=== PATIENT | male | born 1940 | race Caucasian/White ===

== ENCOUNTER 2017-07-18 11:36 | Emergency (ER) | payer OTHER ==
[2017-07-18 11:40] VITALS: BMI 29.4
[2017-07-18] MEDS ORDERED: ACETAMINOPHEN 1000 MG/100 ML VIAL (NON FORMULARY) IVPB ONE (12:18)
--- NOTE | 2017-07-18 12:22 | PDOC ---
History of Present Illness <Giovanna Glover - Last Filed: 07/18/17 17:27> - General History Source: Patient Exam Limitations: No Limitations - History of Present Illness Initial Comments: 07/18/17 12:22 Patient is a 77 yo male with PMHx of DM and TIA who presents with left lower quadrant abdominal pain radiating into the left lower back which onset after breakfast this morning. Patient describes dull, achy pain. He states he had a bowel movement prior to arrival without any improvement in his pain. He admits to nausea and one episode of non-bloody, non-bilious emesis. He also admits to subjective fevers and chills. Patient states his last colonoscopy was 2 years ago, which showed diverticulosis. He also reports a stable benign left adrenal adenoma, which he has regular imaging for. He denies any trauma, numbness, tingling, focal weakness, urinary incontinence, dysuria, urinary frequency, bloody or tarry stools. <Adams Samayoa - Last Filed: 07/18/17 18:03> - General Chief Complaint: Pain, Acute Stated Complaint: BACK PAIN (PCP SENT) Time Seen by Provider: 07/18/17 11:55 Past History <Giovanna Glover - Last Filed: 07/18/17 17:27> - Past Medical History Anemia: No Asthma: No Cancer: No Cardiac Disorders: No CVA: Yes (TIA 1998) COPD: No CHF: No Dementia: No Diabetes: Yes GI Disorders: No Disorders: No HTN: Yes Hypercholesterolemia: No Liver Disease: No Seizures: No Thyroid Disease: No - Surgical History Orthopedic Surgery: Yes (RIGHT ARM FX) - Suicide/Smoking/Psychosocial Hx Smoking Status: No Smoking History: Never smoked Number of Cigarettes Smoked Daily: 0 Hx Alcohol Use: No Drug/Substance Use Hx: No Substance Use Type: None <Adams Samayoa - Last Filed: 07/18/17 18:03> - Past Medical History Allergies/Adverse Reactions: Allergies Allergy/AdvReac Type Severity Reaction Status Date / Time No Known Allergies Allergy Verified 07/18/17 11:40 Home Medications: Ambulatory Orders Aspirin 81 mg PO DAILY 02/22/12 Aspirin/Dipyridamole [Aggrenox -] 1 combo PO BID 05/16/12 Ondansetron [Zofran *Odt*] 8 mg SL TID #30 od.tablet 07/18/17 Review of Systems - Review of Systems Able to Perform ROS?: Yes Is the patient limited Israeli proficient: No Constitutional: Yes: Chills, Fever (subjective) HEENTM: No: Blurred Vision, Double Vision, Throat Pain Respiratory: No: Cough, Shortness of Breath Cardiac (ROS): No: Chest Pain, Lightheadedness ABD/GI: Yes: Nausea, Vomiting, Abdominal cramping. No: Diarrhea, Rectal Bleeding (left lower quadrant) : Yes: Flank Pain (left side). No: Dysuria, Frequency Musculoskeletal: No: Neck Pain Integumentary: No: Pallor, Rash Neurological: No: Headache, Numbness, Tingling, Weakness Psychiatric: No: Anxiety, Depression Endocrine: No: Symptoms Reported Hematologic/Lymphatic: No: Symptoms Reported All Other Systems: Reviewed and Negative <Adams Samayoa - Last Filed: 07/18/17 18:03> *Physical Exam - Vital Signs Last Vital Signs Temp Pulse Resp BP Pulse Ox 98.5 F 70 19 137/92 97 07/18/17 11:39 07/18/17 11:39 07/18/17 11:39 07/18/17 11:39 07/18/17 11:39 <Giovanna Glover - Last Filed: 07/18/17 17:27> - Vital Signs Last Vital Signs Temp Pulse Resp BP Pulse Ox 98.5 F 70 19 137/92 97 07/18/17 11:39 07/18/17 11:39 07/18/17 11:39 07/18/17 11:39 07/18/17 11:39 - Physical Exam Comments: 07/18/17 12:29 Pt sitting in bed, appears uncomfortable General Appearance: Yes: Mild Distress HEENT: positive: EOMI, MARIALUISA, Normal ENT Inspection. negative: Pale Conjunctivae , Scleral Icterus (R), Scleral Icterus (L), Pharyngeal Erythema, Tonsillar Exudate, Tonsillar Erythema Neck: positive: Supple. negative: Tender Respiratory/Chest: positive: Lungs Clear, Normal Breath Sounds. negative: Respiratory Distress, Rales, Rhonchi, Wheezing Cardiovascular: positive: Regular Rhythm, Regular Rate. negative: Murmur Vascular Pulses: Dorsalis-Pedis (R): 2+, Doralis-Pedis (L): 2+ Gastrointestinal/Abdominal: positive: Normal Bowel Sounds, Tender (left lower quadrant), Soft Musculoskeletal: negative: CVA Tenderness (R), CVA Tenderness (L) Extremity: positive: Normal Capillary Refill. negative: Pedal Edema Integumentary: positive: Warm. negative: Jaundice, Pale Neurologic: positive: Fully Oriented, Alert, Motor Strength 5/5 <Adams Samayoa - Last Filed: 07/18/17 18:03> ED Treatment Course - LABORATORY CBC & Chemistry Diagram: 07/18/17 12:30 07/18/17 12:30 - ADDITIONAL ORDERS Additional order review: Laboratory Results 07/18/17 07/18/17 07/18/17 15:10 12:30 12:30 PT with INR 11.50 INR 1.04 Sodium 138 Potassium 4.4 Chloride 101 Carbon Dioxide 29 Anion Gap 8 BUN 18 Creatinine 1.0 Creat Clearance w eGFR > 60 Random Glucose 164 H Calcium 9.1 Total Bilirubin 0.5 AST 24 ALT 40 Alkaline Phosphatase 63 Total Protein 6.5 Albumin 3.7 Urine Color Yellow Urine Appearance Slcloudy Urine pH 6.0 Urine Protein Negative Urine Glucose (UA) 1+ H Urine Ketones 1+ H Urine Blood 2+ H Urine Nitrite Negative Urine Bilirubin Negative Urine Urobilinogen Negative Urine RBC 46 Urine WBC <1 Ur Epithelial Cells Rare Urine Bacteria Rare Urine Mucus Rare 07/18/17 12:30 RBC 3.97 L MCV 88.4 MCHC 33.2 RDW 14.8 MPV 7.8 Neutrophils % 81.7 Lymphocytes % 11.5 Monocytes % 5.2 Eosinophils % 1.3 Basophils % 0.3 - RADIOLOGY Radiograph Interpretation: EXAM#: TYPE/EXAM: RESULT: [id number] CT/ABDOMEN PELVIS CT WITH CONTR Exam: CT abdomen and pelvis with IV contrast Indication: Left lower quadrant pain. Technique: Contiguous axial CT images of the abdomen and pelvis were obtained with oral contrast, following the intravenous administration of 96 mL of Omnipaque 350 contrast. Coronal and sagittal reconstructions obtained. Comparison: 04/09/[address] abdomen/pelvis dated 08/29/2015. Findings: There is a 3-4 mm calculus in the distal left ureter, just proximal to the ureterovesical junction with moderately severe distention of the left ureter, moderate distention of the renal pelvis and moderate hydronephrosis. There is a delayed left nephrogram. There is extensive left perinephric fat stranding and perirenal free fluid, some of which is most likely attributed to forniceal rupture, with fluid tracking inferiorly along the psoas muscle and left ureter. There is also a punctate 1-2 mm nonobstructing calculus in an upper pole calyx of the left kidney. Normal size right kidney without hydronephrosis. There is minimal dependent change in both lung bases. There is calcification of the aortic valve cusps. Please correlate for aortic stenosis. There are coronary artery calcifications. The liver is normal in size and contour. There are multiple subcentimeter hypodense lesions scattered within the right and left hepatic lobes, too small to characterize. The gallbladder is not pathologically distended. No intrahepatic or extrahepatic biliary ductal dilatation. Fatty involution of the pancreatic head. Normal size spleen. Subcentimeter hypodense lesion in the inferior spleen is too small to characterize. There is a 2.2 x 1.6 cm left adrenal gland nodule, unchanged in size. No right adrenal gland nodule or mass. Normal caliber thoracic aorta with moderate calcific atherosclerosis, including the ostia of the SMA. There is severe calcific atherosclerosis at the ostia of the renal arteries. There is a small hiatal hernia. No evidence of intestinal obstruction. Sigmoid and descending colon diverticulosis with no evidence of acute diverticulitis. Normal-appearing, air-filled appendix is noted. No free intraperitoneal air. No drainable collection within the abdomen or pelvis. No intraperitoneal free fluid. Small fat-containing umbilical hernia. Moderate-sized fat-containing right inguinal hernia. Normal size prostate gland. Proximal there is prominent submucosal fat deposition in the urinary bladder, which is most likely the sequela of chronic recurrent inflammation/ cystitis. This appears similar to 08/29/2015 CT abdomen/pelvis. Degenerative changes in the hips, sacroiliac joints and spine. Chronic deformity of the right iliac bone, unchanged from at least 08/29/2015, may be postsurgical or the chronic sequela of old trauma. Impression: 1. A 4 mm calculus within the distal left ureter, immediately proximal to the ureterovesical junction with moderately severe distention of the left ureter, moderate left hydronephrosis and delayed left nephrogram. Extensive left perirenal and periureteral fat stranding with free fluid, most likely secondary to forniceal rupture. 2. No evidence of acute diverticulitis or intestinal obstruction. Normal appendix. 3. A punctate 1-2 mm nonobstructing calculus in the left kidney. 4. Stable size of a 2.2 cm indeterminant left adrenal gland nodule, most likely an adenoma. 5. Severe calcific atherosclerosis at bilateral renal artery ostia. 6. Calcification of the aortic valve. Correlate for aortic stenosis. Coronary artery calcific atherosclerosis. Reported By: Stefan Herrera MD 07/18/17 1724 - Medications Given in the ED: ED Medications Discontinued Medications Generic Name Dose Route Start Last Admin Trade Name Freq PRN Reason Stop Dose Admin Acetaminophen 1,000 mg 07/18/17 12:18 07/18/17 12:49 Ofirmev Injection - IVPB 07/18/17 12:19 1,000 mg ONCE ONE Administration Morphine Sulfate 4 mg 07/18/17 13:34 07/18/17 13:47 Morphine Injection - IVPUSH 07/18/17 13:35 4 mg ONCE ONE Administration Ondansetron HCl 4 mg 07/18/17 13:36 07/18/17 13:47 Zofran Injection IVPUSH 07/18/17 13:37 4 mg ONCE ONE Administration <Giovanna Glover - Last Filed: 07/18/17 17:27> - LABORATORY CBC & Chemistry Diagram: 07/18/17 12:30 07/18/17 12:30 <Adams Samayoa - Last Filed: 07/18/17 18:03> Medical Decision Making - Medical Decision Making 07/18/17 12:32 Pt is a 77 yo male with PMHx of DM and TIA who presents for LLQ abdominal pain and left flank pain that onset this morning Patient has no urinary symptoms or bowel changes Patient had colonoscopy 2 years ago which showed diverticulosis Labs ordered CT Abd/Pelvis with oral contrast ordered as there is concern for diverticulitis IV Tylenol ordered 07/18/17 12:35 <Adams Samayoa - Last Filed: 07/18/17 18:03> *DC/Admit/Observation/Transfer - Attestations Scribe Attestion: 07/18/17 17:28 Documentation prepared by Giovanna Glover, acting as medical csr for Adams Samayoa DO <Giovanna Glover - Last Filed: 07/18/17 17:27> - Discharge Dispostion Admit: No <Adams Samayoa - Last Filed: 07/18/17 18:03> Diagnosis at time of Disposition: Kidney stone - Discharge Dispostion Disposition: HOME Condition at time of disposition: Unchanged/Unknown - Prescriptions Prescriptions: Ondansetron [Zofran *Odt*] 8 mg SL TID #30 od.tablet - Referrals Referrals: Jackelin Funk MD [Primary Care Provider] - Galen Dean MD [Staff Physician] - - Patient Instructions Printed Discharge Instructions: DI for Kidney Stones Additional Instructions: You have a kidney stone, not diverticulitis- Use the oxycontin you already have at home, but take the Zofran ODT first. Call Dr. Roe tomorrow morning for follow up. The stone may pass on it's own.
[2017-07-18] MEDS ORDERED: ACETAMINOPHEN INJECTION 100 ML IVPB ONE ×2 (12:27→16:50)
[2017-07-18 12:48] LABS: BASOPHIL 0.3 % (0-2.0); EOSINOPHIL 1.3 % (0-4.5); MCH 29.3 pg (25.7-33.7); MCHC 33.2 g/dl (32.0-35.9); MEAN CELL VOLUME 88.4 fl (80-96); MEAN PLT VOLUME 7.8 fl (7.5-11.1); NEUTROPHILS 81.7 % (42.8-82.8); PLATELET COUNT 170 K/MM3 (134-434); RDW 14.8 % (11.9-15.9); WHITE BLOOD COUNT 8.5 K/mm3 (4.0-10.0)
[2017-07-18 13:04] LABS: INR 1.04 (0.82-1.09); PROTHROMBIN TIME (PATIENT) 11.5 SEC (9.98-11.88)
[2017-07-18 13:14] LABS: ALBUMIN 3.7 g/dl (3.4-5.0); ALK PHOS 63 U/L (45-117); ANION GAP 8 (8-16); BILIRUBIN,TOTAL 0.5 mg/dL (0.2-1.0); CALCIUM 9.1 mg/dL (8.5-10.1); CO2 29 mmol/L (21-32); GLUCOSE,RANDOM 164 mg/dL (74-106); SGOT/AST 24 U/L (15-37); SGPT/ALT 40 U/L (12-78); TOT PROT 6.5 g/dl (6.4-8.2)
[2017-07-18] MEDS ORDERED: morphine CARPU-JECT 4 MG/1 ML DISP.SYRIN IVPUSH ONE (13:34)
[2017-07-18] MEDS ORDERED: ONDANSETRON 4 MG/2 ML VIAL IVPUSH ONE (13:36)
[2017-07-18] MEDS ORDERED: ONDANSETRON 4 MG/2 ML VIAL ONE (13:38)
[2017-07-18] MEDS ORDERED: morphine CARPU-JECT 10 MG/1 ML DISP.SYRIN ONE (13:38)
[2017-07-18 15:57] LABS: URINE APPEARANCE SLCLOUDY; URINE BILIRUBIN NEGATIVE (NEGATIVE); URINE BLOOD 2+ (NEGATIVE); URINE COLOR YELLOW; URINE GLUCOSE (UA) 1+ (NEGATIVE); URINE KETONE 1+ (NEGATIVE); URINE NITRITE NEGATIVE (NEGATIVE); URINE PROTEIN NEGATIVE (NEGATIVE); URINE UROBILINOGEN NEGATIVE mg/dL (0.2-1.0)
[2017-07-18 16:02] LABS: URINE BACTERIA RARE /hpf (NONE SEEN); URINE MUCUS RARE; URINE RBC 46 /hpf (0-3); URINE WBC <1 /hpf (3-5)
[2017-07-18 18:51] VITALS: BP 149/67; PULSE 89; TEMP 98.4
[2017-07-18 19:01] LABS: URINE LEUK ESTERASE Negative (NEGATIVE)
== END 2017-07-18 18:00 | disposition home or self-care (01) ==
LOC: JER 11:36
PROC: 3E0333Z Introduction of Anti-inflammatory into Peripheral Vein, Percutaneous Approach (ICD-10-PCS; principal; 2017-07-18)
PROC: 3E033GC Introduction of Other Therapeutic Substance into Peripheral Vein, Percutaneous Approach (ICD-10-PCS; 2017-07-18)
DX: N13.2 Hydronephrosis with renal and ureteral calculous obstruction (principal); E11.9 Type 2 diabetes mellitus without complications; Z86.73 Personal history of transient ischemic attack (TIA), and cerebral infarction without residual deficits; I10 Essential (primary) hypertension; Z79.82 Long term (current) use of aspirin
CPT/HCPCS: 36415; 74177-TC; 80053; 81003; 81015; 85025; 85610; 87040; 99282-25

== ENCOUNTER 2017-07-20 10:58 | Inpatient (IN) | payer OTHER ==
[2017-07-20 11:02] VITALS: BMI 29.2
--- NOTE | 2017-07-20 11:18 | PDOC ---
History of Present Illness - General History Source: Patient Exam Limitations: No Limitations - History of Present Illness Initial Comments: 07/20/17 11:58 The patient is a 77 year old male with significant history of DM who returns to the ED for several days of LLQ pain. The patient was seen in the ED 2 days ago for his pain. During his ED visit he had an abdominal CT that revealed a 4 mm calculus in the left distal ureter. He was discharged home where he already had Oxycontin. Yesterday, he woke feeling feverish and generally weak. He followed up with urology yesterday, who started him on course of Cefuroxime (500 mg BID) . Today, he states he felt worse, now with decreased appetite and fever measured at 101.2 at home. He does endorse constipation secondary to narcotic pain relief, but is able to pass gas. No nausea, vomiting, or diarrhea. PCP: Dr. Funk Urologist: Dr. Dean (currently covered by Dr. 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, <Apoorva Salazar - Last Filed: 07/20/17 14:53> - General Chief Complaint: Pain, Acute Stated Complaint: KIDNEY STONES (PCP SENT FOR ADMIN) Time Seen by Provider: 07/20/17 11:16 Past History <Katie Cody - Last Filed: 07/20/17 14:25> - Past Medical History Anemia: No Asthma: No Cancer: No Cardiac Disorders: No CVA: Yes (TIA 1998) COPD: No CHF: No Dementia: No Diabetes: Yes GI Disorders: No Disorders: Yes (kidney stones) HTN: Yes Hypercholesterolemia: No Liver Disease: No Seizures: No Thyroid Disease: No - Surgical History Orthopedic Surgery: Yes (RIGHT ARM FX) - Suicide/Smoking/Psychosocial Hx Smoking Status: No Smoking History: Never smoked Number of Cigarettes Smoked Daily: 0 Information on smoking cessation initiated: No Hx Alcohol Use: No Drug/Substance Use Hx: No Substance Use Type: None <Apoorva Salazar - Last Filed: 07/20/17 14:53> - Past Medical History Allergies/Adverse Reactions: Allergies Allergy/AdvReac Type Severity Reaction Status Date / Time No Known Allergies Allergy Verified 07/20/17 11:02 Home Medications: Ambulatory Orders Aspirin 81 mg PO DAILY 02/22/12 Aspirin/Dipyridamole [Aggrenox -] 1 combo PO BID 05/16/12 Atorvastatin Ca [Lipitor] 20 mg PO HS 07/18/17 Cetirizine HCl [Zyrtec -] 10 mg PO DAILY 07/18/17 Duloxetine HCl 60 mg PO HS 07/18/17 Insulin (Levemir) [Levemir Flexpen -] 12 units SQ HS 07/18/17 Insulin Aspart [Novolog] 7 units SQ HS 07/18/17 Sitagliptin Phosphate [Januvia] 100 mg PO DAILY 07/18/17 Tamsulosin HCl 0.4 mg PO HS 07/18/17 Valsartan 80 mg PO DAILY 07/18/17 Pioglitazone HCl/Metformin HCl [Actoplus Met 15 mg-500 mg Tab] 1 each PO BID 07/27 Review of Systems - Review of Systems Able to Perform ROS?: Yes Comments:: 07/20/17 12:06 GENERAL/CONSTITUTIONAL: Present: fever, chills, weakness, loss of appetite. HEAD, EYES, EARS, NOSE AND THROAT: No: change in vision, ear pain, discharge, sore throat, throat swelling. CARDIOVASCULAR: No: chest pain, lightheadedness, palpitations, syncope RESPIRATORY: No: cough, shortness of breath, wheezing, hemoptysis, stridor. GASTROINTESTINAL: Present: LLQ pain, constipation. No: nausea, vomiting, diarrhea, rectal bleeding GENITOURINARY: No: dysuria, hematuria, frequency, urgency, flank pain. MUSCULOSKELETAL: No: back pain, neck pain, joint pain, muscle swelling or pain SKIN AND BREASTS: No: lesions, pallor, rash or easy bruising. NEUROLOGIC: No: headache, vertigo, paresthesias, weakness ENDOCRINE: No: unexplained weight gain or loss HEMATOLOGIC/LYMPHATIC: No: anemia, easy bleeding, swelling nodes <EscobarKatie - Last Filed: 07/20/17 14:25> *Physical Exam - Vital Signs Last Vital Signs Temp Pulse Resp BP Pulse Ox 98.5 F 123 H 18 113/61 100 07/20/17 11:01 07/20/17 11:01 07/20/17 11:01 07/20/17 11:01 07/20/17 11:01 - Physical Exam Comments: 07/20/17 12:08 GENERAL: Uncomfortable appearance. HEAD: Normal with no signs of trauma. EYES: PERRLA, EOMI, sclera anicteric, conjunctiva clear. ENT: Ears normal, nares patent, oropharynx clear without exudates. Moist mucous membranes. NECK: Normal range of motion, supple without lymphadenopathy, JVD, or masses. LUNGS: Breath sounds equal, clear to auscultation bilaterally. No wheezes, and no crackles. HEART:Regular rate and rhythm, normal S1 and S2 without murmur, rub or gallop. ABDOMEN: +LLQ tenderness. Soft, normoactive bowel sounds. No guarding, no rebound. EXTREMITIES: Normal range of motion, no edema. No clubbing or cyanosis. No erythema, or tenderness. NEUROLOGICAL: Cranial nerves II through XII grossly intact. Normal speech. No focal neurological deficits. MUSCULOSKELETAL: +L CVA tenderness. SKIN: Warm, Dry, normal turgor, no rashes or lesions noted. <Katie Cody - Last Filed: 07/20/17 14:25> - Vital Signs Last Vital Signs Temp Pulse Resp BP Pulse Ox 98.5 F 123 H 18 113/61 100 07/20/17 11:01 07/20/17 11:01 07/20/17 11:01 07/20/17 11:01 07/20/17 11:01 <Apoorva Salazar - Last Filed: 07/20/17 14:53> Heart Score/ECG Review #1 ECG reviewed & interpreted by me at: 12:54 07/20/17 12:54 Twelve-lead EKG was performed and reviewed by me. There is normal sinus rhythm with a tachycardiac rate of 101 bpm. The axis is normal. The intervals are normal - pr:142ms, QRS:86ms, QTc:430ms. There are no ST elevations or depressions. T waves upright <Apoorva Salazar - Last Filed: 07/20/17 14:53> ED Treatment Course - LABORATORY CBC & Chemistry Diagram: 07/20/17 12:20 07/20/17 12:20 <Katie Cody - Last Filed: 07/20/17 14:25> - LABORATORY CBC & Chemistry Diagram: 07/20/17 12:20 07/20/17 12:20 <Apoorva Salazar - Last Filed: 07/20/17 14:53> Medical Decision Making - Medical Decision Making A portion of this note was documented by scribe services under my direction. I have reviewed the details of the note, within reason, and agree with the documentation with the following case summary and management plan written by me. Nursing documentation reviewed and incorporated into medical decision making 07/20/17 12:11 77 yo M presenting to the ER 2 days after being diagnosed with a left kidney stone. CT demonstrated a 4 mm calculus in the left distal ureter with moderately severe distention of the left ureter, moderate left hydronephrosis and delayed nephrogram. Extensive left perirenal and periureteral fat stranding with free fluid. Patient discharge to home. Patient was asked to follow up with his pmd and urology He say urologist yesterday, was given antibiotics which he has taken two doses he reports generalized weakness, fevers (Tmax today 101), No vomiting, no diarrhea Pt sent to the ER for admission 07/20/17 12:16 Will repeat labs (using ED sepsis order set) Will give IVF Will give Ceftriaxone Pt seen in the ER by Dr Funk Will admit to his service 07/20/17 14:52 Laboratory Tests 07/20/17 07/20/17 07/20/17 12:20 12:20 12:20 WBC 9.8 Hgb 12.0 Hct 35.8 Plt Count 180 Neutrophils % 79.0 Lymphocytes % 8.1 D INR 1.05 VBG pH POC VBG pCO2 POC VBG pO2 Mixed VBG HCO3 Sodium 133 L Potassium 4.6 Chloride 94 L Carbon Dioxide 32 BUN 20 H Creatinine 1.8 H D Random Glucose 211 H D Urine Glucose (UA) Urine Ketones Urine Blood Urine RBC Urine WBC 07/20/17 07/20/17 13:38 14:05 WBC Hgb Hct Plt Count Neutrophils % Lymphocytes % INR VBG pH 7.38 POC VBG pCO2 52.4 H POC VBG pO2 35.9 Mixed VBG HCO3 29.9 H Sodium Potassium Chloride Carbon Dioxide BUN Creatinine Random Glucose Urine Glucose (UA) 1+ H Urine Ketones Negative Urine Blood 1+ H Urine RBC 5 Urine WBC 1 07/20/17 14:52 Laboratory Tests 07/18/17 12:30 BUN 18 Creatinine 1.0 Creatinine 1.8 now from baseline 1.0 Dr Arrieta already planning for lithotrypsy <Apoorva Salazar - Last Filed: 07/20/17 14:53> *DC/Admit/Observation/Transfer - Attestations Scribe Attestion: 07/20/17 12:09 Documentation prepared by Katie Cody, acting as biomedical engineering director for Apoorva Salazar MD. <Katie Cody - Last Filed: 07/20/17 14:25> - Discharge Dispostion Admit: Yes <Apoorva Salazar - Last Filed: 07/20/17 14:53> Diagnosis at time of Disposition: Kidney stone, Obstruction of kidney - Discharge Dispostion Condition at time of disposition: Stable
[2017-07-20] MEDS ORDERED: CEFTRIAXONE 1 GM in DEXTROSE 5%-WATER - 50 ML IVPB ONE (12:04)
[2017-07-20] MEDS ORDERED: CEFTRIAXONE 50 ML ONE (12:33)
[2017-07-20] MEDS ORDERED: ACETAMINOPHEN 325 MG TABLET (FP) PO PRN ×2 (12:51→23:23)
[2017-07-20] MEDS ORDERED: ONDANSETRON *ODT* 4 MG TABLET SL PRN ×2 (12:51→23:23)
[2017-07-20] MEDS ORDERED: VALSARTAN 80 MG TABLET (UD) PO SCH (13:00)
[2017-07-20] MEDS ORDERED: morphine CARPU-JECT 4 MG/1 ML DISP.SYRIN IVPUSH PRN ×2 (13:00→23:23)
--- NOTE | 2017-07-20 13:00 | HP ---
Admitting History and Physical - Primary Care Physician PCP: Jackelin Funk - Admission Chief Complaint: ACUTE HYDRONEPHROSIS/CYSTITIS History of Present Illness: 77 Y/O MALE FAILED ON ORAL ANTIBIOTICS AND PAIN EMDS OUTPATIIENT OVER PAST 3 DAYS, WAS HERE AT [facility] 2 DAYS AGO, SENT HOME WITH FOLLOW UP MY OFFICE. SEEN BY MYSELF AND DR SERRA YESTERDAY, WE ATTEMPTED TO HANDLE THIS OUTPATIENT HOWEVER PATIENT BECAME HYPERGLYCEMIC, FEVERS, SEPTIC NEEDING ADMISSION FOR WORKUP AND TREATMENT. HISTORY, DMII, HTN, LIPIDEMIA, TIA, SYNCOPE. 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 Cardiovascular: Yes: HTN Endocrine: Yes: Diabetes Mellitus - Smoking History Smoking history: Never smoked Aproximately how many cigarettes per day: 0 - Alcohol/Substance Use Hx Alcohol Use: No Home Medications - Allergies Allergies/Adverse Reactions: Allergies Allergy/AdvReac Type Severity Reaction Status Date / Time No Known Allergies Allergy Verified 07/20/17 11:02 - Home Medications Home Medications: Ambulatory Orders Aspirin 81 mg PO DAILY 02/22/12 Aspirin/Dipyridamole [Aggrenox -] 1 combo PO BID 05/16/12 Atorvastatin Ca [Lipitor] 20 mg PO HS 07/18/17 Cetirizine HCl [Zyrtec -] 10 mg PO DAILY 07/18/17 Duloxetine HCl 60 mg PO HS 07/18/17 Insulin (Levemir) [Levemir Flexpen -] 12 units SQ HS 07/18/17 Insulin Aspart [Novolog] 7 units SQ HS 07/18/17 Ondansetron [Zofran *Odt*] 8 mg SL TID #30 od.tablet 07/18/17 Ondansetron [Zofran *Odt*] 8 mg SL TID #30 od.tablet 07/18/17 Sitagliptin Phosphate [Januvia] 100 mg PO DAILY 07/18/17 Tamsulosin HCl 0.4 mg PO HS 07/18/17 Valsartan 80 mg PO DAILY 07/18/17 Review of Systems - Review of Systems Constitutional: reports: Fever, Loss of Appetite, Weakness Eyes: reports: No Symptoms HENT: reports: No Symptoms Neck: reports: No Symptoms Cardiovascular: reports: No Symptoms Respiratory: reports: No Symptoms Gastrointestinal: reports: No Symptoms Genitourinary: reports: Dysuria, Flank Pain, Frequency, Hematuria, Other Musculoskeletal: reports: No Symptoms Integumentary: reports: No Symptoms Neurological: reports: No Symptoms Endocrine: reports: Excessive Sweating, Other Hematology/Lymphatic: reports: No Symptoms Psychiatric: reports: No Symptoms Physical Examination Vital Signs: Vital Signs Temperature 98.3 F 07/20/17 12:29 Pulse Rate 123 H 07/20/17 11:01 Respiratory Rate 18 07/20/17 11:01 Blood Pressure 113/61 07/20/17 11:01 O2 Sat by Pulse Oximetry (%) 100 07/20/17 11:01 Constitutional: Yes: Moderate Distress Eyes: Yes: WNL HENT: Yes: WNL Neck: Yes: WNL Cardiovascular: Yes: WNL Respiratory: Yes: WNL Gastrointestinal: Yes: WNL Renal/: Yes: CVA Tenderness - Left, CVA Tenderness - Right Musculoskeletal: Yes: Back Pain Extremities: Yes: WNL Edema: No Peripheral Pulses WNL: Yes Integumentary: Yes: WNL Wound/Incision: Yes: Clean/Dry Neurological: Yes: Pre-Existing Deficit ...Motor Strength: WNL Psychiatric: Yes: WNL Imaging - Results Cat Scan: Report Reviewed Problem List - Problems (1) Hyperglycemia due to type 2 diabetes mellitus Code(s): E11.65 - TYPE 2 DIABETES MELLITUS WITH HYPERGLYCEMIA Qualifiers: Diabetes mellitus intermediate frame tender insulin use: with intermediate frame tender use Qualified Code(s): E11.65 - Type 2 diabetes mellitus with hyperglycemia; E11.65 - Type 2 diabetes mellitus with hyperglycemia; E11.65 - Type 2 diabetes mellitus with hyperglycemia; E11.65 - Type 2 diabetes mellitus with hyperglycemia; Z79.4 - exterminator helper termite (current) use of insulin; Z79.4 - MCFP ( current) use of insulin; Z79.4 - MCFP (current) use of insulin; Z79.4 - exterminator helper termite (current) use of insulin (2) Kidney stone Code(s): N20.0 - CALCULUS OF KIDNEY (3) Obstruction of kidney Code(s): N28.89 - OTHER SPECIFIED DISORDERS OF KIDNEY AND URETER (4) Hydronephrosis due to obstruction of ureter Code(s): N13.2 - HYDRONEPHROSIS WITH RENAL AND URETERAL CALCULOUS OBSTRUCTION (5) Sepsis due to urinary tract infection Code(s): A41.9 - SEPSIS, UNSPECIFIED ORGANISM N39.0 - URINARY TRACT INFECTION, SITE NOT SPECIFIED Assessment/Plan IV ABX PAIN CONTROL BGM CHECKS AND ID FOLLOW UP ENDOCRINE CONSULT
[2017-07-20 13:03] LABS: BASOPHIL 0.2 % (0-2.0); EOSINOPHIL 0.5 % (0-4.5); MCH 29.4 pg (25.7-33.7); MCHC 33.5 g/dl (32.0-35.9); MEAN CELL VOLUME 87.8 fl (80-96); PLATELET COUNT 180 K/MM3 (134-434); RDW 14.6 % (11.9-15.9); WHITE BLOOD COUNT 9.8 K/mm3 (4.0-10.0)
[2017-07-20 13:17] LABS: INR 1.05 (0.82-1.09); PROTHROMBIN TIME (PATIENT) 11.5 SEC (9.98-11.88)
[2017-07-20 13:24] LABS: ALBUMIN 3.5 g/dl (3.4-5.0); ALK PHOS 51 U/L (45-117); ANION GAP 7 (8-16); BILIRUBIN,TOTAL 0.7 mg/dL (0.2-1.0); CO2 32 mmol/L (21-32); CREATININE 1.8 mg/dL (0.7-1.3); GLUCOSE,RANDOM 211 mg/dL (74-106); SGOT/AST 17 U/L (15-37); SGPT/ALT 31 U/L (12-78); TOT PROT 6.3 g/dl (6.4-8.2)
[2017-07-20 14:19] LABS: URINE APPEARANCE SLCLOUDY; URINE BILIRUBIN NEGATIVE (NEGATIVE); URINE BLOOD 1+ (NEGATIVE); URINE COLOR YELLOW; URINE GLUCOSE (UA) 1+ (NEGATIVE); URINE KETONE NEGATIVE (NEGATIVE); URINE NITRITE NEGATIVE (NEGATIVE); URINE PROTEIN NEGATIVE (NEGATIVE); URINE UROBILINOGEN NEGATIVE mg/dL (0.2-1.0)
[2017-07-20 14:21] LABS: VENOUS PH 7.38 (7.32-7.42)
[2017-07-20 14:21] LABS: URINE MUCUS RARE; URINE RBC 5 /hpf (0-3); URINE WBC 1 /hpf (3-5)
[2017-07-20 14:22] LABS: VENOUS BLOOD GAS HCO3 29.9 meq/L (19-25)
--- NOTE | 2017-07-20 15:15 | CON.ID ---
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 Cardio/Vascular: Yes: HTN Endocrine: Yes: Diabetes Mellitus - Alcohol/Substance Use Hx Alcohol Use: No - Smoking History Smoking history: Never smoked Aproximately how many cigarettes per day: 0 Home Medications - Allergies Allergies/Adverse Reactions: Allergies Allergy/AdvReac Type Severity Reaction Status Date / Time No Known Allergies Allergy Verified 07/20/17 11:02 - Home Medications Home Medications: Ambulatory Orders Aspirin 81 mg PO DAILY 02/22/12 Aspirin/Dipyridamole [Aggrenox -] 1 combo PO BID 05/16/12 Pioglitazone HCl/Metformin HCl [Actoplus Met 15 mg-500 mg Tab] 1 each PO BID 07/27 Acetaminophen [Tylenol .Regular Strength -] 650 mg PO Q6H PRN #0 tablet Atorvastatin Ca [Lipitor] 20 mg PO HS #0 tab 07/21/17 Cetirizine HCl [Zyrtec -] 10 mg PO DAILY #0 tab 07/21/17 Duloxetine HCl 60 mg PO HS #0 cap 07/21/17 Insulin (LOG) Aspart [NovoLOG -] 7 units SQ BID@0700,1630 vial 07/21/17 Insulin (Levemir) [Levemir Flexpen -] 12 units SQ HS #0 syr 07/21/17 Insulin (Levemir) [Levemir Vial] 20 units SQ HS ml 07/21/17 Insulin Aspart [Novolog] 7 units SQ HS #0 dis.syr 07/21/17 Insulin Sliding Scale [Novolog Vial Sliding Scale -] 1 vial SQ ACHS units 07/21 Levofloxacin [Levaquin -] 500 mg PO DAILY #7 tablet 07/21/17 Sitagliptin Phosphate [Januvia] 100 mg PO DAILY #0 tab 07/21/17 Tamsulosin HCl 0.4 mg PO HS #0 cap 07/21/17 Valsartan 80 mg PO DAILY #0 tab 07/21/17 Valsartan [Diovan] 80 mg PO DAILY tablet 07/21/17 Review of Systems - Review of Systems Constitutional: reports: Fever, Weakness Eyes: reports: No Symptoms HENT: reports: No Symptoms Neck: reports: No Symptoms Cardiovascular: reports: No Symptoms Respiratory: reports: No Symptoms Gastrointestinal: reports: No Symptoms Genitourinary: reports: Dysuria, Other Neurological: reports: No Symptoms Endocrine: reports: No Symptoms Hematology/Lymphatic: reports: No Symptoms Psychiatric: reports: No Symptoms Physical Exam Vital Signs: Vital Signs Temperature 98.3 F 07/20/17 12:29 Pulse Rate 100 H 07/20/17 15:09 Respiratory Rate 18 07/20/17 15:09 Blood Pressure 140/66 07/20/17 15:09 O2 Sat by Pulse Oximetry (%) 95 07/20/17 15:09 Constitutional: Yes: No Distress, Calm Eyes: Yes: Conjunctiva Clear Cardiovascular: Yes: Regular Rate and Rhythm Respiratory: Yes: Regular, CTA Bilaterally Gastrointestinal: Yes: Normal Bowel Sounds, Soft Musculoskeletal: Yes: WNL Extremities: Yes: WNL Neurological: Yes: Alert, Oriented Psychiatric: Yes: Alert, Oriented Labs: CBC, BMP 07/20/17 12:20 07/20/17 12:20 Imaging - Results Chest X-ray: Report Reviewed, Image Reviewed Cat Scan: Report Reviewed, Image Reviewed Assessment/Plan roblem List - Problems (1) Hyperglycemia due to type 2 diabetes mellitus (2) Kidney stone Code(s): N20.0 - CALCULUS OF KIDNEY (3) Obstruction of kidney Code(s): N28.89 - OTHER SPECIFIED DISORDERS OF KIDNEY AND URETER (4) Hydronephrosis due to obstruction of ureter Code(s): N13.2 - HYDRONEPHROSIS WITH RENAL AND URETERAL CALCULOUS OBSTRUCTION (5) Sepsis due to urinary tract infection Code(s): A41.9 - SEPSIS, UNSPECIFIED ORGANISM N39.0 - URINARY TRACT INFECTION, SITE NOT SPECIFIED plan will start patient on meropenam await for urology to see the patient rest as per primary await for all cx report
[2017-07-20] MEDS ORDERED: Insulin (LOG) Aspart 100 UNITS/ML VIAL SQ SCH (16:30)
[2017-07-20] MEDS: MEROPENEM 1 GM in DEXTROSE 5%-WATER - 100 ML IVPB SCH ×2 (16:50→17:57)
[2017-07-20] MEDS: INSULIN SLIDING SCALE (NOVOLOG) 1 VIAL SQ SCH ×2 (17:08→21:56)
[2017-07-20] MEDS ORDERED: PT OWN MED DRAWER 7, Y5N ONE (18:28)
[2017-07-20 19:56] LABS: URINE LEUK ESTERASE Negative (NEGATIVE)
--- NOTE | 2017-07-20 21:47 | EKG ---
Test Reason : Blood Pressure : / mmHG Vent. Rate : 101 BPM Atrial Rate : 101 BPM P-R Int : 142 ms QRS Dur : 086 ms QT Int : 332 ms P-R-T Axes : 040 045 036 degrees QTc Int : 430 ms SINUS TACHYCARDIA OTHERWISE NORMAL ECG WHEN COMPARED WITH ECG OF 30-JAN-2007 23:00, PREVIOUS EKG HAD AN ARTIFACT REPEAT EKG IF CLINICALLY INDICATED Confirmed by KINJAL WILSON MD ([id number]) on 07/20/2017 9:47:25 PM Referred By: Confirmed By:KINJAL WILSON MD
[2017-07-20] MEDS ORDERED: INSULIN DETEMIR 100 UNITS/ML MDV SQ SCH (22:00)
[2017-07-20] MEDS ORDERED: ATORVASTATIN CA 10 MG TABLET (FP) PO SCH (22:00)
[2017-07-20] MEDS ORDERED: LIDOCAINE HCL/PF 2% SDV 5ML VIAL ONE (22:26)
[2017-07-20] MEDS ORDERED: PROPOFOL 20 ML ONE (22:26)
--- NOTE | 2017-07-20 23:07 | OP ---
Operative Note - Note: Operative Date: 07/20/17 Pre-Operative Diagnosis: left DU stone Operation: cysto/left ureteroscopy/stone extraction/stent placement Findings: LDU stone Post-Operative Diagnosis: Same as Pre-op Surgeon: Raj Arrieta Anesthesiologist/CIRCUIT BREAKER MECHANIC: Raj Aguilar Anesthesia: General Specimens Removed: stone Drains & Tubes with Location: 7fr, 26cm stent Operative Report Dictated: Yes
[2017-07-20] MEDS ORDERED: PROMETHAZINE HCL 25 MG/1 ML VIAL IVPUSH PRN (23:12)
[2017-07-20] MEDS ORDERED: ONDANSETRON 4 MG/2 ML VIAL IVPUSH PRN (23:12)
[2017-07-20] MEDS ORDERED: oxyCODONE HCL 5 MG TABLET PO PRN (23:12)
[2017-07-21] MEDS: MEROPENEM 1 GM in DEXTROSE 5%-WATER - 100 ML IVPB SCH ×2 (01:41→10:11)
[2017-07-21] MEDS: Insulin (LOG) Aspart 100 UNITS/ML VIAL SQ SCH ×2 (06:25→17:21)
[2017-07-21] MEDS ORDERED: INSULIN (NOVOLOG) ASPART 100 UNITS/ML 10ML VIAL ONE ×2 (06:55→07:58)
[2017-07-21] MEDS ORDERED: sitaGLIPtin PHOSPHATE 100 MG TABLET (FP) PO SCH ×2 (07:00)
[2017-07-21 07:23] LABS: MCH 29.5 pg (25.7-33.7); MCHC 33.4 g/dl (32.0-35.9); MEAN CELL VOLUME 88.2 fl (80-96); MEAN PLT VOLUME 8.1 fl (7.5-11.1); PLATELET COUNT 157 K/MM3 (134-434); RDW 14.3 % (11.9-15.9); WHITE BLOOD COUNT 8.8 K/mm3 (4.0-10.0)
--- NOTE | 2017-07-21 08:02 | OP ---
DATE OF OPERATION: DATE OF DICTATION: 07/20/2017 PREOPERATIVE DIAGNOSIS: Obstructing left distal ureteral stone. POSTOPERATIVE DIAGNOSIS: Obstructing left distal ureteral stone. PROCEDURE: Cystoscopy, retrograde pyelogram, ureteroscopy, stone extraction and manipulation, and stent placement. SURGEON: Mitra Poe MD INDICATION: Patient is a 77-year-old male with an obstructing 4-mm left distal ureteral stone and was admitted with fever. He is taken to the OR emergently for cystoscopy, stone extraction, and stent placement. Risks, benefits, and alternatives discussed, including potential need for additional procedures including potential for scar tissue formation and stricture formation. DESCRIPTION OF PROCEDURE: After informed consent obtained, patient taken to OR, placed supine on the table. After cardiac monitoring was established and general anesthesia established, he was prepped and draped in the dorsal lithotomy position. The 23-sheath cystoscope was introduced without difficulty into his normal prostatic urethra and 3 cm of bladder was then visualized. No tumor or stones were noted in the bladder. The left ureteral orifice was intubated with a ureteral catheter and contrast injected for a retrograde pyelogram. There was hydroureteronephrosis down to the level of the distal ureter. A guidewire advanced into the left renal pelvis. Alongside the guidewire, a semirigid ureteroscope was advanced into the distal ureter where the stone was seen impacted in the distal ureter. The ureteral lumen appeared narrow at this point. The stone was manipulated with the tip of the scope and then dislodged and then through irrigation the stone was actually irrigated out of the ureter into the bladder. The entire ureter was then inspected with the ureteroscope to make sure no other stones were noted. The ureteroscope was then removed and a 7-Bhutanese, 26-cm double-pigtail stent was then advanced in a monorail fashion. Fluoroscopy confirmed the stent to be in good position. At this point then, the stone was extracted from the bladder through the cystoscope and sent to Pathology for analysis. Patient was then awoken from anesthesia and transferred to recovery room in stable condition. There were no complications. Estimated blood loss was minimal. MITRA POE M.D. [id number]
[2017-07-21 08:06] LABS: ALBUMIN 2.9 g/dl (3.4-5.0); ANION GAP 9 (8-16); CALCIUM 8.4 mg/dL (8.5-10.1); CO2 31 mmol/L (21-32); CREATININE 1.4 mg/dL (0.7-1.3); GLUCOSE,RANDOM 234 mg/dL (74-106); SGOT/AST 16 U/L (15-37); SGPT/ALT 26 U/L (12-78)
[2017-07-21 08:08] LABS: ALK PHOS 48 U/L (45-117); BILIRUBIN,TOTAL 0.7 mg/dL (0.2-1.0); TOT PROT 5.5 g/dl (6.4-8.2)
[2017-07-21] MEDS ORDERED: TAMSULOSIN HCL 0.4 MG CAP.ER.24H (FP) PO SCH ×2 (08:30)
[2017-07-21] MEDS ORDERED: DULoxetine HCL 30 MG CAPSULE.DR (FP) PO ONE (09:26)
[2017-07-21] MEDS ORDERED: DEXTROSE 5%-WATER 100 ML IVPB ONE (09:27)
[2017-07-21] MEDS ORDERED: PT OWN MED DRAWER 7, Y5N ONE (09:28)
[2017-07-21] MEDS: INSULIN SLIDING SCALE (NOVOLOG) 1 VIAL SQ SCH ×3 (09:35→17:20)
[2017-07-21] MEDS ORDERED: ASPIRIN COATED 81 MG TABLET.EC PO SCH ×2 (10:00)
[2017-07-21] MEDS ORDERED: CEFTRIAXONE 2 GM in DEXTROSE 5%-WATER 100 ML IVPB SCH ×2 (10:00)
[2017-07-21] MEDS ORDERED: DULoxetine HCL 60 MG CAPSULE.DR PO SCH ×2 (10:00)
[2017-07-21] MEDS ORDERED: VALSARTAN 80 MG TABLET (UD) PO SCH (10:00)
--- NOTE | 2017-07-21 10:02 | PN ---
Progress Note (short form) - Note Progress Note: POD #1 - s/p cystoscopy, ureteroscopy, stent placement under general anesthesia. Pt. doing well, resting comfortably in bed. No complaints. No apparent anesthetic complications noted. Continue current care.
--- NOTE | 2017-07-21 11:29 | DS ---
Physical Examination Vital Signs: Vital Signs Temperature 97.5 F L 07/21/17 05:44 Pulse Rate 71 07/21/17 05:44 Respiratory Rate 18 07/21/17 05:44 Blood Pressure 120/64 07/21/17 05:44 O2 Sat by Pulse Oximetry (%) 98 07/21/17 01:02 Findings/Remarks: STABLE, IMPROVED, FAMILY BEDSIDE , WANTS TO GO HOME Constitutional: Yes: No Distress Eyes: Yes: WNL HENT: Yes: WNL Neck: Yes: WNL Cardiovascular: Yes: WNL Respiratory: Yes: WNL Gastrointestinal: Yes: WNL Renal/: Yes: WNL Musculoskeletal: Yes: WNL Extremities: Yes: WNL Edema: No Peripheral Pulses WNL: Yes Integumentary: Yes: WNL Wound/Incision: Yes: Clean/Dry Neurological: Yes: WNL ...Motor Strength: WNL Psychiatric: Yes: WNL Labs: CBC, BMP 07/21/17 06:00 07/21/17 06:00 Discharge Summary Reason For Visit: CALCULUS OF KIDNEY Current Active Problems Hydronephrosis due to obstruction of ureter (Acute) Hyperglycemia due to type 2 diabetes mellitus (Acute) Kidney stone (Acute) Obstruction of kidney (Acute) Sepsis due to urinary tract infection (Acute) Procedures: Principal: URETRAL STENT CYSTOSCOPY Other Procedures: ADMITTED FOR WORSENING HYDRONEPHROSIS, CYSTOSCOPY DONE WITH STENT PLACEMENT Hospital Course: IV ABX, CYSTOSCOPY WITH STENT PLACEMENT Condition: Improved - Instructions Diet, Activity, Other Instructions: LOW SODIUM/ADA Disposition: HOME - Home Medications Comprehensive Discharge Medication List: Ambulatory Orders Aspirin 81 mg PO DAILY 02/22/12 Aspirin/Dipyridamole [Aggrenox -] 1 combo PO BID 05/16/12 Atorvastatin Ca [Lipitor] 20 mg PO HS 07/18/17 Cetirizine HCl [Zyrtec -] 10 mg PO DAILY 07/18/17 Duloxetine HCl 60 mg PO HS 07/18/17 Insulin (Levemir) [Levemir Flexpen -] 12 units SQ HS 07/18/17 Insulin Aspart [Novolog] 7 units SQ HS 07/18/17 Sitagliptin Phosphate [Januvia] 100 mg PO DAILY 07/18/17 Tamsulosin HCl 0.4 mg PO HS 07/18/17 Valsartan 80 mg PO DAILY 07/18/17 Pioglitazone HCl/Metformin HCl [Actoplus Met 15 mg-500 mg Tab] 1 each PO BID 07/27
[2017-07-21] MEDS ORDERED: LEVOFLOXACIN 500 MG TABLET (FP) PO SCH (11:30)
--- NOTE | 2017-07-21 13:02 | PN ---
Progress Note, Physician History of Present Illness: patient doing well patient underwent cysto/left ureteroscopy/stone extraction/stent placement no complaints - Current Medication List Current Medications: Active Medications Acetaminophen (Tylenol -) 650 mg PO Q6H PRN PRN Reason: FEVER OR PAIN Aspirin (Ecotrin -) 81 mg PO DAILY [facility] Last Admin: 07/21/17 09:33 Dose: 81 mg Atorvastatin Calcium (Lipitor -) 10 mg PO HS [facility] Duloxetine HCl (Cymbalta -) 60 mg PO DAILY [facility] Last Admin: 07/21/17 09:32 Dose: 60 mg Fentanyl (Sublimaze Injection -) 25 mcg IVPUSH [id number] PRN PRN Reason: PAIN Stop: 07/23/17 23:13 Ceftriaxone Sodium 2 gm/ (Dextrose) 100 mls @ 200 mls/hr IVPB DAILY [facility] Last Admin: 07/21/17 09:34 Dose: 200 mls/hr Insulin Aspart (Novolog) 7 units SQ BID@0700,1630 [facility] Last Admin: 07/21/17 06:25 Dose: 7 units Insulin Aspart (Novolog Vial Sliding Scale -) 1 vial SQ ACHS [facility] PRN Reason: Protocol Last Admin: 07/21/17 12:15 Dose: 2 unit Insulin Detemir (Levemir Vial) 20 units SQ HS [facility] Levofloxacin (Levaquin -) 500 mg PO DAILY@0600 [facility] Last Admin: 07/21/17 12:14 Dose: Not Given Morphine Sulfate (Morphine Injection -) 4 mg IVPUSH Q6H PRN PRN Reason: PAIN Ondansetron HCl (Zofran Odt -) 4 mg SL Q6H PRN PRN Reason: NAUSEA AND/OR VOMITING Oxycodone HCl (Roxicodone -) 5 mg PO Q4H PRN PRN Reason: MILD PAIN Stop: 07/21/17 23:11 Sitagliptin Phosphate (Januvia -) 100 mg PO AM [facility] Tamsulosin HCl (Flomax -) 0.4 mg PO DAILY@0830 [facility] Last Admin: 07/21/17 09:31 Dose: 0.4 mg Valsartan (Diovan -) 80 mg PO DAILY [facility] Last Admin: 07/21/17 09:33 Dose: 80 mg - Objective Vital Signs: Vital Signs Temperature 97.5 F L 07/21/17 05:44 Pulse Rate 71 07/21/17 05:44 Respiratory Rate 18 07/21/17 05:44 Blood Pressure 120/64 07/21/17 05:44 O2 Sat by Pulse Oximetry (%) 98 07/21/17 01:02 Constitutional: Yes: No Distress, Calm Respiratory: Yes: Regular, CTA Bilaterally Gastrointestinal: Yes: Normal Bowel Sounds, Soft Musculoskeletal: Yes: WNL Extremities: Yes: WNL Neurological: Yes: Alert, Oriented Psychiatric: Yes: Alert Labs: CBC, BMP 07/21/17 06:00 07/21/17 06:00 INR, PTT INR 1.05 (0.82-1.09) 07/20/17 12:20 Assessment/Plan roblem List - Problems (1) Hyperglycemia due to type 2 diabetes mellitus (2) Kidney stone Code(s): N20.0 - CALCULUS OF KIDNEY (3) Obstruction of kidney Code(s): N28.89 - OTHER SPECIFIED DISORDERS OF KIDNEY AND URETER (4) Hydronephrosis due to obstruction of ureter Code(s): N13.2 - HYDRONEPHROSIS WITH RENAL AND URETERAL CALCULOUS OBSTRUCTION (5) Sepsis due to urinary tract infection Code(s): A41.9 - SEPSIS, UNSPECIFIED ORGANISM N39.0 - URINARY TRACT INFECTION, SITE NOT SPECIFIED plan continue current mgmt cx result awaited rest as per primary team
--- NOTE | 2017-07-21 13:11 | CONSULT ---
Consult Consult Specialty:: Nephrology Reason for Consultation:: MISSY - History of Present Illness Chief Complaint: left flank pain History of Present Illness: Pt is a 77 year old male with pmhx of DM who presents to the ER with flank pain. He had a 4 mm stone in the left ureter. He presented with fever. He was taken for cysto and stone was removed. I was called to evaluate him for elevated creatinne. He denies nsaid use. He denies history of CKD. He still has hematuria but he denies dysuria. 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 Cardio/Vascular: Yes: HTN Renal/: Yes: Renal Calculi Endocrine: Yes: Diabetes Mellitus - Alcohol/Substance Use Hx Alcohol Use: No - Smoking History Smoking history: Never smoked Aproximately how many cigarettes per day: 0 Home Medications - Allergies Allergies/Adverse Reactions: Allergies Allergy/AdvReac Type Severity Reaction Status Date / Time No Known Allergies Allergy Verified 07/20/17 11:02 - Home Medications Home Medications: Ambulatory Orders Aspirin 81 mg PO DAILY 02/22/12 Aspirin/Dipyridamole [Aggrenox -] 1 combo PO BID 05/16/12 Pioglitazone HCl/Metformin HCl [Actoplus Met 15 mg-500 mg Tab] 1 each PO BID 07/27 Acetaminophen [Tylenol .Regular Strength -] 650 mg PO Q6H PRN #0 tablet Atorvastatin Ca [Lipitor] 20 mg PO HS #0 tab 07/21/17 Cetirizine HCl [Zyrtec -] 10 mg PO DAILY #0 tab 07/21/17 Duloxetine HCl 60 mg PO HS #0 cap 07/21/17 Insulin (LOG) Aspart [NovoLOG -] 7 units SQ BID@0700,1630 vial 07/21/17 Insulin (Levemir) [Levemir Flexpen -] 12 units SQ HS #0 syr 07/21/17 Insulin (Levemir) [Levemir Vial] 20 units SQ HS ml 07/21/17 Insulin Aspart [Novolog] 7 units SQ HS #0 dis.syr 07/21/17 Insulin Sliding Scale [Novolog Vial Sliding Scale -] 1 vial SQ ACHS units 07/21 Levofloxacin [Levaquin -] 500 mg PO DAILY #7 tablet 07/21/17 Sitagliptin Phosphate [Januvia] 100 mg PO DAILY #0 tab 07/21/17 Tamsulosin HCl 0.4 mg PO HS #0 cap 07/21/17 Valsartan 80 mg PO DAILY #0 tab 07/21/17 Valsartan [Diovan] 80 mg PO DAILY tablet 07/21/17 Family Disease History - Family Disease History Family History: Denies Review of Systems - Review of Systems Constitutional: reports: No Symptoms Eyes: reports: No Symptoms HENT: reports: No Symptoms Neck: reports: No Symptoms Cardiovascular: reports: No Symptoms Respiratory: reports: No Symptoms Gastrointestinal: reports: No Symptoms Genitourinary: reports: Flank Pain, Hematuria Musculoskeletal: reports: No Symptoms Integumentary: reports: No Symptoms Neurological: reports: No Symptoms Endocrine: reports: No Symptoms Hematology/Lymphatic: reports: No Symptoms Psychiatric: reports: No Symptoms Physical Exam Vital Signs: Vital Signs Temperature 97.5 F L 07/21/17 05:44 Pulse Rate 71 07/21/17 05:44 Respiratory Rate 18 07/21/17 05:44 Blood Pressure 120/64 07/21/17 05:44 O2 Sat by Pulse Oximetry (%) 98 07/21/17 01:02 Constitutional: Yes: Calm Eyes: Yes: Conjunctiva Clear HENT: Yes: Atraumatic Neck: Yes: Supple Cardiovascular: Yes: S1, S2 Gastrointestinal: Yes: Normal Bowel Sounds, Soft Renal/: Yes: Hematuria Breast(s): Yes: WNL Extremities: Yes: WNL Edema: No Neurological: Yes: Oriented Psychiatric: Yes: Oriented Labs: CBC, BMP 07/21/17 06:00 07/21/17 06:00 Laboratory Tests 07/18/17 07/20/17 07/20/17 12:30 12:20 12:20 WBC Hgb 12.0 Sodium Potassium Chloride BUN Creatinine 1.0 1.8 H D Urine Color Urine Appearance Urine pH Ur Specific [place] Urine Protein Urine Glucose (UA) Urine Ketones Urine Blood Urine Nitrite Urine Bilirubin Urine Urobilinogen Ur Leukocyte Esterase 07/20/17 07/21/17 07/21/17 13:38 06:00 06:00 WBC 8.8 Hgb 10.0 L D Sodium 136 Potassium 5.0 Chloride 96 L BUN 23 H Creatinine 1.4 H D Urine Color Yellow Urine Appearance Slcloudy Urine pH 5.0 Ur Specific [place] 1.010 Urine Protein Negative Urine Glucose (UA) 1+ H Urine Ketones Negative Urine Blood 1+ H Urine Nitrite Negative Urine Bilirubin Negative Urine Urobilinogen Negative Ur Leukocyte Esterase Negative Imaging - Results Chest X-ray: Report Reviewed Problem List - Problems (1) Hyperglycemia due to type 2 diabetes mellitus Code(s): E11.65 - TYPE 2 DIABETES MELLITUS WITH HYPERGLYCEMIA Qualifiers: Diabetes mellitus intermediate card tender insulin use: with chcf use Qualified Code(s): E11.65 - Type 2 diabetes mellitus with hyperglycemia; E11.65 - Type 2 diabetes mellitus with hyperglycemia; E11.65 - Type 2 diabetes mellitus with hyperglycemia; E11.65 - Type 2 diabetes mellitus with hyperglycemia (2) Kidney stone Code(s): N20.0 - CALCULUS OF KIDNEY (3) MISSY (acute kidney injury) Code(s): N17.9 - ACUTE KIDNEY FAILURE, UNSPECIFIED (4) Hematuria Code(s): R31.9 - HEMATURIA, UNSPECIFIED Assessment/Plan Current Medications Generic Name Dose Route Start Last Admin Trade Name Freq PRN Reason Stop Dose Admin Acetaminophen 650 mg 07/20/17 23:23 Tylenol - PO Q6H PRN FEVER OR PAIN Aspirin 81 mg 07/21/17 10:00 07/21/17 09:33 Ecotrin - PO 81 mg DAILY [facility] Administration Atorvastatin Calcium 10 mg 07/21/17 22:00 Lipitor - PO HS [facility] Duloxetine HCl 60 mg 07/21/17 10:00 07/21/17 09:32 Cymbalta - PO 60 mg DAILY [facility] Administration Fentanyl 25 mcg 07/20/17 23:12 Sublimaze Injection - IVPUSH 07/23/17 23:13 [id number] PRN PAIN Ceftriaxone Sodium 2 gm/ 100 mls @ 200 mls/hr 07/21/17 10:00 07/21/17 09:34 Dextrose IVPB 200 mls/hr DAILY [facility] Administration Insulin Aspart 7 units 07/21/17 07:00 07/21/17 06:25 Novolog SQ 7 units BID@0700,1630 [facility] Administration Insulin Aspart 1 vial 07/21/17 07:00 07/21/17 12:15 Novolog Vial Sliding Scale - SQ 2 unit ACHS [facility] Administration Protocol Insulin Detemir 20 units 07/21/17 22:00 Levemir Vial SQ HS [facility] Levofloxacin 500 mg 07/21/17 11:30 07/21/17 12:14 Levaquin - PO Not Given DAILY@0600 [facility] Morphine Sulfate 4 mg 07/20/17 23:23 Morphine Injection - IVPUSH Q6H PRN PAIN Ondansetron HCl 4 mg 07/20/17 23:23 Zofran Odt - SL Q6H PRN NAUSEA AND/OR VOMITING Oxycodone HCl 5 mg 07/20/17 23:12 Roxicodone - PO 07/21/17 23:11 Q4H PRN MILD PAIN Sitagliptin Phosphate 100 mg 07/21/17 07:00 Januvia - PO AM [facility] Tamsulosin HCl 0.4 mg 07/21/17 08:30 07/21/17 09:31 Flomax - PO 0.4 mg DAILY@0830 [facility] Administration Valsartan 80 mg 07/21/17 10:00 07/21/17 09:33 Diovan - PO 80 mg DAILY [facility] Administration Impression 1. MISSY 2. nephrolithiasis 3. hematuria 4. DM 5. HTN 6. hyperlipidemia Plan - renal function is improving - stone has been removed - encourage fluid intake - repeat bmp in am - can have stone workup as outpt - will follow Dr Singh
[2017-07-21 14:35] VITALS: PULSE 88
[2017-07-21 14:36] VITALS: BP 113/61; TEMP 97.7
[2017-07-21] MEDS ORDERED: INSULIN DETEMIR 100 UNITS/ML MDV SQ SCH (22:00)
[2017-07-21] MEDS ORDERED: ATORVASTATIN CA 10 MG TABLET (FP) PO SCH (22:00)
--- NOTE | 2017-07-22 09:27 | PATH ---
Surgical Pathology Report Patient Name: SANTIAGO KELLY Med. Rec. #: [id number] /Age/Gender: 1940 (Age: 77) / M Account: [id number] Location: [facility] MED/SURG Taken: 07/20/2017 Received: 07/21/2017 Reported: 07/22/2017 Physicians: Raj Arrieta M.D. Specimen(s) Received STONE LEFT KIDNEY Clinical History Calculus of kidney Final Diagnosis STONE, LEFT URETER, EXTRACTION: CALCULI SUBMITTED FOR CHEMICAL ANALYSIS (gross only). Electronically Signed Charles Rasmussen M.D. Gross Description Received fresh labeled "stone left ureter," is a 0.3 cm in greatest dimension [place], irregular calculus which is sent for chemical analysis. 07/21/201707/21/2017
== END 2017-07-21 18:32 | disposition home or self-care (01) | DRG 854 ==
LOC: JER 10:58 → JERBED 12:19 → J7W 17:49
PROVIDERS: ADMIT Family Medicine; ATTEND Family Medicine
PROC: 0TC78ZZ Extirpation of Matter from Left Ureter, Via Natural or Artificial Opening Endoscopic (ICD-10-PCS; principal; 2017-07-20 18:30)
PROC: 0T778DZ Dilation of Left Ureter with Intraluminal Device, Via Natural or Artificial Opening Endoscopic (ICD-10-PCS; 2017-07-20 18:30)
PROC: BT1FZZZ Fluoroscopy of Left Kidney, Ureter and Bladder (ICD-10-PCS; 2017-07-20 18:30)
DX: A41.9 Sepsis, unspecified organism (principal); N13.2 Hydronephrosis with renal and ureteral calculous obstruction; N17.9 Acute kidney failure, unspecified; N39.0 Urinary tract infection, site not specified; R31.9 Hematuria, unspecified; E11.65 Type 2 diabetes mellitus with hyperglycemia
CPT/HCPCS: 36415; 71010-TC; 76000-TC; 80053; 81003; 81015; 82360; 82803; 83605; 85025; 85027; 85610; 85730; 86850; 86900; 86901; 87040; 87086; 88300-TC; 93005; 93010; 94760; 99285-25

== ENCOUNTER 2017-08-24 11:25 | Emergency (ER) | payer OTHER ==
[2017-08-24 11:31] VITALS: TEMP 98.6; BMI 28.8
--- NOTE | 2017-08-24 14:06 | PDOC ---
History of Present Illness - General History Source: Patient Exam Limitations: No Limitations - History of Present Illness Initial Comments: 08/24/17 16:07 The patient is a 77 year old male, with a significant past medical history of TIA (1998), DM, HTN, Kidney stones who presents to the emergency department s/p mechanical fall. Today, patient reports carrying a box of knives, tripped over his dogs and fell down a flight of stairs. Patient sustained laceration to R 5th finger and abrasion to top of his head. Patient endorses pain to 5th finger however denied any other complaints. He denies chest pain, headache or dizziness. He denies fever, chills, abdominal pain, nausea, vomit, diarrhea or constipation. He denies dysuria, frequency, urgency or hematuria. Patient denies sick contacts or recent travel. <Hien Singh - Last Filed: 08/24/17 16:56> <Davin Brownlee - Last Filed: 08/24/17 19:17> - General Chief Complaint: Injury Stated Complaint: HAND LACERATION Time Seen by Provider: 08/24/17 14:05 Past History <Hien Singh - Last Filed: 08/24/17 16:56> - Past Medical History Anemia: No Asthma: No Cancer: No Cardiac Disorders: No CVA: Yes (TIA 1998) COPD: No CHF: No Dementia: No Diabetes: Yes GI Disorders: No Disorders: Yes (kidney stones) HTN: Yes Hypercholesterolemia: No Liver Disease: No Seizures: No Thyroid Disease: No - Surgical History Orthopedic Surgery: Yes (RIGHT ARM FX) - Immunization History Immunization Up to Date: Yes - Suicide/Smoking/Psychosocial Hx Smoking Status: No Smoking History: Never smoked Number of Cigarettes Smoked Daily: 0 Information on smoking cessation initiated: No Hx Alcohol Use: No Drug/Substance Use Hx: No Substance Use Type: None <Davin Brownlee - Last Filed: 08/24/17 19:17> - Past Medical History Allergies/Adverse Reactions: Allergies Allergy/AdvReac Type Severity Reaction Status Date / Time No Known Allergies Allergy Verified 08/24/17 11:26 Home Medications: Ambulatory Orders Aspirin 81 mg PO DAILY 02/22/12 Aspirin/Dipyridamole [Aggrenox -] 1 combo PO BID 05/16/12 Pioglitazone HCl/Metformin HCl [Actoplus Met 15 mg-500 mg Tab] 1 each PO BID 07/27 Acetaminophen [Tylenol .Regular Strength -] 650 mg PO Q6H PRN #0 tablet Atorvastatin Ca [Lipitor] 20 mg PO HS #0 tab 07/21/17 Cetirizine HCl [Zyrtec -] 10 mg PO DAILY #0 tab 07/21/17 Insulin (LOG) Aspart [NovoLOG -] 7 units SQ BID@0700,1630 vial 07/21/17 Insulin (Levemir) [Levemir Flexpen -] 12 units SQ HS #0 syr 07/21/17 Insulin (Levemir) [Levemir Vial] 20 units SQ HS ml 07/21/17 Insulin Aspart [Novolog] 7 units SQ HS #0 dis.syr 07/21/17 Insulin Sliding Scale [Novolog Vial Sliding Scale -] 1 vial SQ ACHS units 07/21 Sitagliptin Phosphate [Januvia] 100 mg PO DAILY #0 tab 07/21/17 Tamsulosin HCl 0.4 mg PO HS #0 cap 07/21/17 Valsartan 80 mg PO DAILY #0 tab 07/21/17 Amoxicillin/Potassium Clav [Augmentin 875-125 Tablet] 1 each PO BID #14 tablet 08/24/17 Fluoxetine HCl [Prozac -] 40 mg PO DAILY 08/24/17 Review of Systems - Review of Systems Able to Perform ROS?: Yes Comments:: 08/24/17 16:07 ROS: A complete review of 10 out of 10 review of systems is taken and is negative apart from what is previously mentioned below and in the HPI. <Hien Singh - Last Filed: 08/24/17 16:56> *Physical Exam - Vital Signs Last Vital Signs Temp Pulse Resp BP Pulse Ox 98.6 F 98 H 15 137/66 98 08/24/17 11:27 08/24/17 11:27 08/24/17 11:27 08/24/17 11:27 08/24/17 11:27 - Physical Exam Comments: 08/24/17 16:08 Vitals: Triage Vital signs reviewed General Appearance: no acute distress, well nourished well developed, Head: Atraumatic, normocephalic Neck: Supple;No Nuchal rigidity Chest Wall: Nontender Cardiac: Regular rate and rhythm, no murmurs, no rubs, no gallops, Lungs: Clear to auscultation bilateral, good air movement bilaterally, Abdomen: Soft, nondistended, normal bowel sounds, nontender to palpation Extremities: Full range of motion to all extremities, no cyanosis, clubbing, or edema Skin: +Laceration to R index finger at the base. +Abrasion to top of head. Warm and dry, no rashes or lesions, no petechiae <Hien Singh - Last Filed: 08/24/17 16:56> - Vital Signs Last Vital Signs Temp Pulse Resp BP Pulse Ox 98.6 F 98 H 15 137/66 98 08/24/17 11:27 08/24/17 11:27 08/24/17 11:27 08/24/17 11:27 08/24/17 11:27 - Physical Exam Comments: Finger examination, FDP and FDS intact, neurovascularly intact, 2 cm laceration noted to the base of the right pinky 2.5 cm 08/24/17 19:16 <Davin Brownlee - Last Filed: 08/24/17 19:17> Procedures - Laceration/Wound Repair Right 5th digit Wound Length: to 2.5 cm Wound Explored: clean Wound's Depth, Shape: superficial, linear Irrigated w/ Saline: Yes Betadine Prep: Yes Anesthesia: 2% Lidocaine Wound Repaired With: Sutures Suture Size/Type: 5:0 Number of Sutures: 7 Layer Closure: No Sterile Dressing Applied: Yes Splint Applied: No Sling Applied: No <Davin Brownlee - Last Filed: 08/24/17 19:17> ED Treatment Course - Medications Given in the ED: ED Medications Discontinued Medications Generic Name Dose Route Start Last Admin Trade Name Freq PRN Reason Stop Dose Admin Diphtheria/Tetanus/Acell Pertussis 0.5 ml 08/24/17 14:22 08/24/17 14:50 Boostrix - IM 08/24/17 14:23 0.5 ml .ONCE ONE Administration <Hien Singh - Last Filed: 08/24/17 16:56> Medical Decision Making - Medical Decision Making 08/24/17 17:13 Mechanical trip and fall positive head injury no loss of consciousness given the patient is on anticoagulation we'll CT had. Patient also sustained laceration to base of the left pinky right hand. Tetanus not up-to-date we'll update tetanus CT head suture hand Reevaluation 5 PM 7 sutures placed with good approximation after thorough your irrigation. Neurovascularly intact. FDS FDP intact to all digits of right hand Patient provided with strict head injury precautions and hand follow-up will return to ED in 7 days no palpitations for suture removal Findings, the need for follow-up and strict return instructions discussed with patient. <Davin Brownlee - Last Filed: 08/24/17 19:17> *DC/Admit/Observation/Transfer - Attestations Scribe Attestion: 08/24/17 16:08 Documentation prepared by Hien Singh, acting as director of graduate medical education for Davin Brownlee MD <Hien Singh - Last Filed: 08/24/17 16:56> <Davin Brownlee - Last Filed: 08/24/17 19:17> Diagnosis at time of Disposition: Hand laceration Qualifiers: Encounter type: initial encounter Foreign body presence: without foreign body Laterality: right Qualified Code(s): S61.411A - Laceration without foreign body of right hand, initial encounter Head injury Qualifiers: Encounter type: initial encounter Qualified Code(s): S09.90XA - Unspecified injury of head, initial encounter - Prescriptions Prescriptions: Amoxicillin/Potassium Clav [Augmentin 875-125 Tablet] 1 each PO BID #14 tablet - Referrals Referrals: Jackelin Funk MD [Primary Care Provider] - - Patient Instructions Printed Discharge Instructions: Laceration Repair, DI for Closed Head Injury Additional Instructions: Regarding head injury, return to ED immediately for any severe headache persistent vomiting lethargy change in behavior. Tonight had the waking up from sleep every 3-4 hours. Return to the emergency department for any concerns or if your difficult to arouse Bacitracin twice a day Keep area clean, dry and covered Return to the ED in 7-10 days for suture removal. Augmentin as prescribed Return to the ED immediately for any signs of infection: increasing redness, streaking red lines, fever or for any other concerning symptoms. Please see Dr. Dykes [address] [place] [address] - or- Dr. Kaminski [address] [place] [address] for follow up. - Post Discharge Activity
[2017-08-24] MEDS ORDERED: DIPHTH,PERTUSS(ACELL),TET 0.5 ML DISP.SYRIN IM ONE (14:22)
[2017-08-24 17:50] VITALS: BP 128/75; PULSE 87
== END 2017-08-24 17:20 | disposition home or self-care (01) ==
LOC: JER 11:25
PROC: 0HQFXZZ Repair Right Hand Skin, External Approach (ICD-10-PCS; principal; 2017-08-24)
PROC: 3E0234Z Introduction of Serum, Toxoid and Vaccine into Muscle, Percutaneous Approach (ICD-10-PCS; 2017-08-24)
DX: S01.01XA Laceration without foreign body of scalp, initial encounter (principal); S61.216A Laceration without foreign body of right little finger without damage to nail, initial encounter; W10.8XXA Fall (on) (from) other stairs and steps, initial encounter; Y93.89 Activity, other specified; Y92.018 Other place in single-family (private) house as the place of occurrence of the external cause; I10 Essential (primary) hypertension; E11.9 Type 2 diabetes mellitus without complications; Z79.4 Long term (current) use of insulin; Z79.84 Long term (current) use of oral hypoglycemic drugs; Z79.01 Long term (current) use of anticoagulants; Z86.73 Personal history of transient ischemic attack (TIA), and cerebral infarction without residual deficits; Z87.442 Personal history of urinary calculi
CPT/HCPCS: 12001-25; 70450-TC; 90471; 90715; 99282-25

== ENCOUNTER 2018-12-27 06:17 | Day surgery (SDC) | payer OTHER ==
[2018-12-22 11:27] VITALS: BMI 29.4
[2018-12-27] MEDS ORDERED: MIDAZOLAM HCL 2 MG/2 ML SINGLE DOSE VIAL ONE (06:54)
[2018-12-27] MEDS ORDERED: PROPOFOL 20 ML ONE ×4 (07:00→09:04)
[2018-12-27] MEDS ORDERED: TETRACAINE 0.5% OPHTH SOLN 2 ML BOTTLE ONE (07:16)
[2018-12-27] MEDS ORDERED: ERYTHROMYCIN 0.5% OPHTHALMIC OINTMENT 3.5 GM TUBE ONE (07:16)
[2018-12-27] MEDS ORDERED: POVIDONE-IODINE 5% OPHTHALMIC PREP 30 ML SOLUTION ONE (07:17)
[2018-12-27] MEDS ORDERED: LIDOCAINE 1%/EPI 1:100000 (20 ML MULTI DOSE VIAL) ONE (07:17)
[2018-12-27] MEDS ORDERED: ceFAZolin SODIUM 1 GM VIAL ONE (07:59)
[2018-12-27] MEDS ORDERED: ONDANSETRON 4 MG/2 ML VIAL ONE (08:22)
[2018-12-27] MEDS ORDERED: SUCCINYLCHOLINE CHLORIDE 200 MG/10 ML VIAL ONE (09:05)
[2018-12-27] MEDS ORDERED: ONDANSETRON 4 MG/2 ML VIAL IVPUSH PRN (09:37)
[2018-12-27] MEDS ORDERED: ACETAMINOPHEN INJECTION 100 ML IVPB ONE (09:40)
[2018-12-27] MEDS ORDERED: LACTATED RINGERS SOLUTION 1,000 ML IV SCH (09:45)
[2018-12-27] MEDS ORDERED: ACETAMINOPHEN 1000 MG/100 ML VIAL (NON FORMULARY) IVPB ONE (10:03)
[2018-12-27 10:55] VITALS: TEMP 97.7
[2018-12-27 11:30] VITALS: BP 134/77; PULSE 73
--- NOTE | 2018-12-27 11:46 | OP ---
DATE OF OPERATION: 12/27/2018 PREOPERATIVE DIAGNOSIS: Epiphora both eyes in the setting of laxity of both lower lids, punctal stenosis both lower lids, and excessive conjunctival and plica chalasis, bilateral lower lids. POSTOPERATIVE DIAGNOSIS: Epiphora both eyes in the setting of laxity of both lower lids, punctal stenosis both lower lids, and excessive conjunctival and plica chalasis, bilateral lower lids. PROCEDURE: 1. Examination under anesthesia. 2. The following procedure was performed bilaterally and consisted of lateral tarsus strip in the right lower lid, lateral tarsus strip in the right lower lid, excision of plica and conjunctival chalasis nasally in the right lower lid, excision of plica and conjunctival chalasis nasally in the left lower lid with closure. 3. Conjunctivoplasty with punctal inversion on the right, conjunctivoplasty with punctal inversion on the left, and punctoplasty of the right lower lid, and punctoplasty of the left lower lid. SURGEON: Cristopher Lopez MD ANESTHESIA: Local with sedation. COMPLICATONS: None. ESTIMATED BLOOD LOSS: 5 mL. OPERATIVE REPORT: Patient was brought to the operating room, placed on the operating room table. Vital signs monitored by Anesthesia. Tetracaine was placed in both eyes. Lateral canthal lines were marked in both lateral canthi, and time-out was performed. Intravenous sedation was administered following which a 50/50 mixture of 2% Xylocaine with 1:100,000 epinephrine and 0.5% Marcaine was injected in the lateral canthal tissues and the periosteum and lateral third in the upper/lower lid, nasally in the conjunctival sub-plical space and the nasal eyelid, as well, for a total of 5 mL. Massage was applied for hemostasis. The patient was prepped and draped in the usual sterile fashion exposing both eyes. The following procedure was performed bilaterally. Lateral canthal incision was made at the lateral canthus, carried down to periosteum. Hemostasis was achieved with a Pickaway needle. Antibiotic irrigation was used throughout the case. Inferior al and lateral canthal tendon was from the orbital rim with sharp dissection. It was overlapped at the orbital rim and marked with sterile marking pen, divided to an anterior and posterior lamella. The anterior lamella was excised. Posterior lamella was denuded of epithelium posteriorly and superiorly. Attention was now turned the nasal eyelid, where incision of the conjunctival and plical chalasis was carried out. In the right lower lid, there was a significant amount of prolapsing fat under this tissue, which had to be excised, as well. This tissue was then closed with interrupted 6-0 chromic sutures reducing the conjunctival chalasis. Additional thermal cautery was used for the conjunctival chalasis along the inferior lid margin as needed, subpunctal incision, and conjunctival retractor was excised above this and positioned. Retractors were then secured to the inferior tarsal conjunctival just straddling the punctum, and then, the same suture was rotated through the inferior edge of the excision. Full-thickness and nasal eyelid rotated in the punctum inward. Prior to tying this suture, the punctoplasty was performed by dilating the punctum and incising the posterior lip of the punctum and then redilating the punctum demonstrating wider patency. The suture on the anterior surface was tied. The lateral canthal angle was reformed with a 5-0 chromic buried through the ochoa line of the upper and lower lid. The Prolene with the double- arm Prolene was now used to attach the newly created tarsal strip to the orbital rim at the position that was symmetrical to the contralateral side. This was reinforced with two 6-0 Vicryl lasso sutures. Prolene was then tied, attaching the tarsal strip to the orbital rim, and the muscle layer was closed with 5-0 chromic and the skin with running 6-0 plain after meticulous attention was paid for hemostasis. The same procedure was performed bilaterally with the addition of a second 5-0 chromic suture in the right lower lid just temporal to the first one to enhance the correction of the inferior conjunctival chalasis in this eye lid. This was tied through a full-thickness eye lid loosely. Erythromycin ointment was placed in both eyes, and the sutures of both eyes temporally and nasally, and the patient was taken to the recovery room in stable condition. Aurelia [id number] MTDD
--- NOTE | 2018-12-29 14:37 | PATH ---
Surgical Pathology Report Patient Name: SANTIAGO KELLY [facility]. Rec. #: [id number] /Age/Gender: 1940 (Age: 78) / M Account: [id number] Location: [facility] Taken: 12/27/2018 Received: 12/27/2018 Reported: 12/29/2018 Physicians: Cristopher Lopez Specimen(s) Received A: RIGHT ORBITAL FAT B: LEFT ORBITAL FAT Clinical History Bilateral lower eyelids ectropion Final Diagnosis A. RIGHT ORBITAL FAT, EXCISION: CONJUNCTIVAL MUCOSA WITH NON-SPECIFIC CHRONIC INFLAMMATION AND FIBROSIS IN THE SUBMUCOSA. B. LEFT ORBITAL FAT, EXCISION: CONJUNCTIVAL MUCOSA WITH NON-SPECIFIC CHRONIC INFLAMMATION AND FIBROSIS IN THE SUBMUCOSA. SEPARATE FRAGMENT OF FIBROADIPOSE TISSUE AND BENIGN SEROUS GLAND, CONSISTENT LACRIMAL GLAND. Electronically Signed Malika Miller M.D. Gross Description A. Received in formalin, labeled "right orbital fat" is an irregular puckett soft tissue measuring 0.2 cm. in greatest dimension. The specimens are submitted in toto in one cassette. B. Received in formalin, labeled ""left orbital fat" are multiple andre, irregular portions of soft tissue measuring 0.5 cm. in greatest dimension. The specimens are submitted in toto in one cassette. __ KWYesica/12/27/2018 marcia/12/27/2018
== END 2018-12-27 11:40 | disposition home or self-care (01) ==
LOC: FASU 06:17
PROVIDERS: ATTEND Ophthalmology
PROC: 08BQ0ZZ Excision of Right Lower Eyelid, Open Approach (ICD-10-PCS; 2018-12-27)
PROC: 08BR0ZZ Excision of Left Lower Eyelid, Open Approach (ICD-10-PCS; principal; 2018-12-27 08:03)
DX: H04.563 Stenosis of bilateral lacrimal punctum (principal); H11.823 Conjunctivochalasis, bilateral; H02.89 Other specified disorders of eyelid
CPT/HCPCS: 82962; 88304-TC; 94760; J0131

== ENCOUNTER 2019-03-14 08:03 | Day surgery (SDC) | payer OTHER ==
[2019-03-09 17:31] VITALS: BMI 29.9
--- NOTE | 2019-03-14 08:01 | HP ---
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 Cardiovascular: Yes: HTN Renal/: Yes: Renal Calculi Endocrine: Yes: Diabetes Mellitus - Current Medications Current Medications: Home Medications Medication Instructions Recorded Aspirin 81 mg PO DAILY 02/22/12 Aspirin/Dipyridamole [Aggrenox -] 1 combo PO BID 05/16/12 Atorvastatin Ca [Lipitor] 20 mg PO HS #0 tab 07/21/17 Sitagliptin Phosphate [Januvia] 100 mg PO DAILY #0 tab 07/21/17 Tamsulosin HCl 0.4 mg PO HS #0 cap 07/21/17 Bupropion HCl 100 mg PO DAILY 12/22/18 Duloxetine HCl [Cymbalta] 60 mg PO HS 12/22/18 Ferrous Sulfate 325 mg PO HS 12/22/18 Insulin (Levemir) [Levemir Vial] 10 units SQ HS 12/22/18 Insulin Aspart (Niacinamide) 7 unit SQ ACDIN 12/22/18 [Fiasp 100 Unit/ml Flextouch] Losartan Potassium 25 mg PO DAILY 12/22/18 Multivitamins [Tab-A-Vit -] 1 tab PO DAILY 12/22/18 Pioglitazone HCl/Metformin HCl 1 each PO BID 03/09/19 [Actoplus Met 15 mg-850 mg Tab] Satellite Physical Exam - Physical Examination General Appearance: Well Nourished, Well Developed, Alert & Oriented x3 ENT: Clear Lung: Normal air movement Heart: Regular rate & rhythm Extremities: Other (right knee- + swelling, + ttp medially, dec rom ,nvi, xrays show grade 4 medial compartment djd) Neurological: Intact, Alert, Oriented Satellite Impression/Plan - Impression/Plan Impression: right knee medial djd Operative Procedure: right medial cookie ukr Date to be Performed: 03/14/19
[2019-03-14] MEDS ORDERED: oxyCODONE HCL 10 MG SUSTAINED ACTING TABLET PO ONE (08:15)
[2019-03-14] MEDS ORDERED: CEFAZOLIN 2 GM in DEXTROSE 5%-WATER - 50 ML IVPB ONE (08:15)
[2019-03-14] MEDS ORDERED: TRANEXAMIC ACID 1000 MG/10 ML VIAL IVPUSH ONE (08:15)
[2019-03-14] MEDS ORDERED: ROPIVICAINE 0.2%/MORPH PF/KETOROLAC - 51ML DISP.SYRINGE IA ONE ×3 (08:15→11:19)
[2019-03-14] MEDS ORDERED: CELECOXIB 200 MG CAPSULE PO ONE (08:15)
[2019-03-14] MEDS ORDERED: GABAPENTIN 300 MG CAPSULE (FP) PO ONE (08:15)
[2019-03-14] MEDS ORDERED: THROMBIN (RECOMBINANT) 5,000 UNIT VIAL TP ONE (08:28)
[2019-03-14] MEDS ORDERED: ceFAZolin SODIUM 1 GM VIAL ONE ×2 (08:28→09:54)
[2019-03-14] MEDS ORDERED: GELATIN, ABSORBABLE 12-7MM EACH SPONGE TP ONE (08:28)
[2019-03-14] MEDS ORDERED: MIDAZOLAM HCL 2 MG/2 ML SINGLE DOSE VIAL ONE ×2 (09:17→09:54)
[2019-03-14] MEDS ORDERED: BUPIVACAINE HCL/PF (5 MG/ML) 30 ML VIAL IJ ONE (09:18)
[2019-03-14] MEDS ORDERED: ONDANSETRON 4 MG/2 ML VIAL IVPUSH PRN ×2 (09:50→11:50)
[2019-03-14] MEDS ORDERED: MAG HYDROX/AL HYDROX/SIMETH 30 ML UNIT-DOSE CUP PO PRN (09:50)
[2019-03-14] MEDS ORDERED: ePHEDrine SULFATE 50 MG/1 ML AMPULE ONE (09:54)
[2019-03-14] MEDS ORDERED: SUCCINYLCHOLINE CHLORIDE 200 MG/10 ML VIAL ONE (09:54)
[2019-03-14] MEDS ORDERED: PROPOFOL 20 ML ONE (09:54)
[2019-03-14] MEDS ORDERED: TRANEXAMIC ACID 1000 MG/10 ML VIAL ONE (09:54)
[2019-03-14] MEDS ORDERED: DEXAMETHASONE SOD PHOSPHATE 4 MG/1 ML VIAL ONE (09:54)
[2019-03-14] MEDS ORDERED: LACTATED RINGERS SOLUTION 1,000 ML IV SCH (10:00)
[2019-03-14] MEDS ORDERED: buPROPion HCL 100 MG TABLET PO SCH (10:00)
[2019-03-14] MEDS ORDERED: MULTIVITAMINS (DAILY MVI) TABLET (FP) PO SCH (10:00)
[2019-03-14] MEDS ORDERED: LOSARTAN POTASSIUM 25 MG TABLET PO SCH (10:00)
--- NOTE | 2019-03-14 11:35 | OP ---
Operative Note - Note: Operative Date: 03/14/19 (joy) Pre-Operative Diagnosis: right knee medial djd Operation: right medial cookie ukr Post-Operative Diagnosis: Same as Pre-op Surgeon: Jase Vizcarra Piping Manager: Brad Darnell Anesthesiologist/ETYMOLOGY TEACHER: Amado Sheffield Anesthesia: Spinal, Local Specimens Removed: bone fragments Estimated Blood Loss (mls): 100 Operative Report Dictated: Yes
[2019-03-14] MEDS ORDERED: oxyCODONE HCL 5 MG TABLET PO PRN ×2 (11:50)
[2019-03-14] MEDS ORDERED: PROMETHAZINE HCL 25 MG/1 ML VIAL IVPUSH PRN (11:50)
[2019-03-14] MEDS ORDERED: ACETAMINOPHEN 325 MG TABLET (FP) PO SCH (12:30)
[2019-03-14] MEDS ORDERED: ACETAMINOPHEN 325 MG TABLET (FP) ONE (12:37)
--- NOTE | 2019-03-14 15:51 | CONSULT ---
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 Cardio/Vascular: Yes: HTN Renal/: Yes: Renal Calculi Endocrine: Yes: Diabetes Mellitus - Alcohol/Substance Use Hx Alcohol Use: No (STOPPED 2015) - Smoking History Smoking history: Former smoker Have you smoked in the past 12 months: No Aproximately how many cigarettes per day: 0 If you are a former smoker, when did you quit?: 1973 - Social History ADL: Independent Home Medications - Allergies Allergies/Adverse Reactions: Allergies Allergy/AdvReac Type Severity Reaction Status Date / Time No Known Drug Allergies Allergy Verified 03/09/19 17:15 - Home Medications Home Medications: Ambulatory Orders Aspirin 81 mg PO DAILY 02/22/12 Aspirin/Dipyridamole [Aggrenox -] 1 combo PO BID 05/16/12 Atorvastatin Ca [Lipitor] 20 mg PO HS #0 tab 07/21/17 Sitagliptin Phosphate [Januvia] 100 mg PO DAILY #0 tab 07/21/17 Tamsulosin HCl 0.4 mg PO HS #0 cap 07/21/17 Bupropion HCl 100 mg PO DAILY 12/22/18 Duloxetine HCl [Cymbalta] 60 mg PO HS 12/22/18 Ferrous Sulfate 325 mg PO HS 12/22/18 Insulin (Levemir) [Levemir Vial] 5 units SQ HS 12/22/18 Insulin Aspart (Niacinamide) [Fiasp 100 Unit/ml Flextouch] 7 unit SQ ACDIN 12/22 Losartan Potassium 25 mg PO DAILY 12/22/18 Multivitamins [Multivit ([facility] Formulary)] 1 tab PO DAILY 12/22/18 Pioglitazone HCl/Metformin HCl [Actoplus Met 15 mg-850 mg Tab] 1 each PO BID Oxycodone HCl/Acetaminophen [Percocet 5-325 mg Tablet] 1 - 2 tab PO Q6H #30 tab MDD 6 03/14/19 Review of Systems - Review of Systems Constitutional: reports: No Symptoms Eyes: reports: No Symptoms HENT: reports: No Symptoms Neck: reports: No Symptoms Cardiovascular: reports: No Symptoms Respiratory: reports: No Symptoms Gastrointestinal: reports: No Symptoms Genitourinary: reports: No Symptoms Musculoskeletal: reports: Other (mild right knee pain) Integumentary: reports: No Symptoms Neurological: reports: No Symptoms Endocrine: reports: No Symptoms Hematology/Lymphatic: reports: No Symptoms Psychiatric: reports: No Symptoms Pain Intensity: 2 Physical Exam Vital Signs: Vital Signs Temperature 97.6 F 03/14/19 12:55 Pulse Rate 69 03/14/19 12:55 Respiratory Rate 15 03/14/19 12:55 Blood Pressure 138/60 03/14/19 12:55 O2 Sat by Pulse Oximetry (%) 95 03/14/19 13:48 Constitutional: Yes: Well Nourished Eyes: Yes: WNL HENT: Yes: WNL Neck: Yes: WNL Cardiovascular: Yes: WNL Respiratory: Yes: WNL Gastrointestinal: Yes: WNL Renal/: Yes: WNL Musculoskeletal: Yes: Joint Stiffness (right knee stiffness) Extremities: Yes: WNL Edema: No Peripheral Pulses WNL: Yes Integumentary: Yes: WNL Wound/Incision: Yes: Clean/Dry Neurological: Yes: WNL ...Motor Strength: RLE (2/5) Psychiatric: Yes: WNL Assessment/Plan -79 yo man with right knee DJD, S/P partial knee replacement cont pain management. incentive spirometry. no complications. -GI, DVT prophylaxis. -CAD: cont aspirin, lipitor -anxiety and depression: on buproprion, cymbalta -type 2 DM: on RISS, glucophage, actos, januvia -HTN: cont cozaar -chronic iron deficeincy anemia: on ferrous sulfate -BPH: on flomax -oral diet. pt had lunch. well tolerated -PT/OT -medically stable. anticipated DC tomorrow -assessment and plan discussed with pt and family at bedside.
[2019-03-14] MEDS: PANTOPRAZOLE 40 MG TABLET (FP) PO SCH (15:54)
[2019-03-14] MEDS: SENNOSIDES/DOCUSATE COMBO (SENNA PLUS) TABLET (UD) PO SCH ×2 (15:54→21:13)
[2019-03-14] MEDS: PIOGLITAZONE HCL 15 MG TABLET (FP) PO SCH (16:46)
[2019-03-14] MEDS ORDERED: INSULIN (NOVOLOG) ASPART 100 UNITS/ML 10ML VIAL ONE ×2 (17:32→21:24)
[2019-03-14] MEDS: CEFAZOLIN 2 GM/D5W 2 GM/50 ML ML IVPB SCH (17:33)
[2019-03-14] MEDS: ACETAMINOPHEN 325 MG TABLET (FP) PO SCH (17:34)
[2019-03-14] MEDS: INSULIN SLIDING SCALE (NOVOLOG) 1 VIAL SQ SCH ×2 (19:29→21:36)
--- NOTE | 2019-03-14 21:44 | SPEC ---
DATE OF OPERATION: 03/14/2019 PREOPERATIVE DIAGNOSIS: Degenerative joint disease, right knee. POSTOPERATIVE DIAGNOSIS: Degenerative joint disease, right knee. PROCEDURE: Right medial unicompartmental knee replacement with robotic-assisted navigation (MAKOplasty) and patelloplasty. SURGICAL ATTENDING: aJse Vizcarra MD TELEGRAPH OFFICE MANAGER: JOSH Tavares ANESTHESIA: Regional and spinal. CLOSURE: Medial unicompartmental HENRY components with a 6 femur, a 6 tibia, and an 8 polyethylene; No. 1 Vicryl, fascia; 0 and 2-0, subcutaneous; 3-0 Monocryl subcuticular with skin glue for the skin; 4-0 undyed Vicryl for pin sites. ESTIMATED BLOOD LOSS: Less than 100 mL. COMPLICATIONS: None. CONDITION: To recovery in stable condition. DESCRIPTION OF OPERATIVE PROCEDURE: Patient was taken to the operating room on March 14, 2019. Spinal and regional anesthesia was administered by the anesthesiologist. IV Kefzol and TXA were administered prophylactically prior to the case. A well-padded pneumatic tourniquet was placed on the right proximal thigh. The right lower extremity was prepped and draped in the usual sterile fashion. A 6- to 8-cm longitudinal incision over the medial side of the patella from mid patella to the tibial tubercle was incised and was deepened using Bovie cautery. An arthrotomy was then made just medial to the patellar tendon and the patella. Subperiosteal dissection was done on the anteromedial proximal tibia all the way back to the MCL. Partial fat pad excision was performed, exposing the medial compartment. Checkpoint was malleable at both the femur and the tibia. Using 2 stab incisions in the femur 1 handbreadth above the patella on the femur and 2 stab incisions 1 handbreadth below the tibial tubercle on the tibia, 2 threaded pins were drilled in parallel fashion from anterior to posterior, going through the proximal cortex and engaging the 2nd but not through the 2nd cortex. To these threaded pins were fastened navigation rays, 1 on the femur and 1 on the tibia. The knee was then registered with the navigation device with the center of the rotation of the hip, medial and lateral malleoli, and multiple points both on the femur and on the tibia. Excellent registration of less than 0.5 mm was obtained on both to ensure adequate registration. The navigation device ensured us to "pop the bubbles" both on the femur and the tibia and that was performed and passed registration. The knee was then thoroughly inspected to remove all osteophytes both on the femur and the tibia. Also, osteophytes on the trochlea and on the surface of the patella were removed as well. The knee was then stressed with valgus stress at 0, 30, 60, 90, and 120 degrees of flexion. This propagated a looseness/tightness graft. The virtual positions of the components were then optimized to ensure an excellent graft. The tracking also was optimized by manipulating the virtual position to ensure that the femoral component articulated with the central portion of the tibial component. The robot was then brought into the field and was registered. The robot was used to bur the bone on both the femur and the tibia as to the specifications of the components. The trial components were then applied on both the femur and the tibia with an appropriate polyethylene insert. The knee was taken through a range of motion and found to have full extension, full flexion, with excellent stability. Stressing the graft revealed an excellent looseness/tightness graft with the trial components in place. The trial components were removed. The knee was thoroughly irrigated with a copious amount of antibiotic irrigation. The real components were then cemented in using modern generation cement techniques with antibiotic cement and pressurization. After the cement was hardened, the knee was thoroughly inspected to remove out all excess cement. The real polyethylene insert was then clipped into place. Range of motion and stability were again assessed to be as they were with the trials. At this time, the pins and the checkpoints were removed. The knee was again thoroughly irrigated. The arthrotomy was closed with No. 1 Vicryl, 0 and 2-0 subcutaneous, and 3-0 Monocryl subcuticular with skin glue for the skin, 4-0 undyed Vicryl for the pin sites. Sterile pressure dressing was placed over the knee. Patient awakened from anesthesia and transferred to recovery in stable condition. No complications. Estimated blood loss negligible. X-rays postoperatively revealed excellent position of the components. Aurelia [id number]
[2019-03-14] MEDS ORDERED: INSULIN (LEVEMIR) 100 UNITS/ML UNITS SQ SCH (22:00)
[2019-03-14] MEDS ORDERED: DULoxetine HCL 30 MG CAPSULE.DR PO SCH (22:00)
[2019-03-14] MEDS ORDERED: FERROUS SO4 325 MG TABLET (FP) PO SCH (22:00)
[2019-03-14] MEDS ORDERED: ATORVASTATIN CA 20 MG TABLET (FP) PO SCH (22:00)
[2019-03-14] MEDS ORDERED: TAMSULOSIN HCL 0.4 MG CAP PO SCH (22:00)
[2019-03-15] MEDS: ACETAMINOPHEN 325 MG TABLET (FP) PO SCH ×3 (00:10→11:27)
[2019-03-15] MEDS: CEFAZOLIN 2 GM/D5W 2 GM/50 ML ML IVPB SCH (02:11)
[2019-03-15] MEDS: INSULIN SLIDING SCALE (NOVOLOG) 1 VIAL SQ SCH ×2 (06:02→11:26)
[2019-03-15] MEDS ORDERED: INSULIN (NOVOLOG) ASPART 100 UNITS/ML 10ML VIAL ONE ×2 (06:40→11:25)
[2019-03-15] MEDS: PIOGLITAZONE HCL 15 MG TABLET (FP) PO SCH (08:31)
[2019-03-15 09:10] VITALS: BP 124/51; PULSE 79; TEMP 98
[2019-03-15] MEDS: SENNOSIDES/DOCUSATE COMBO (SENNA PLUS) TABLET (UD) PO SCH (09:13)
[2019-03-15] MEDS: PANTOPRAZOLE 40 MG TABLET (FP) PO SCH (09:13)
--- NOTE | 2019-03-15 09:48 | PN ---
Progress Note (short form) - Note Progress Note: Ortho Pt seen and examined s/p right medial cookie ukr pod #1 Selected Entries 03/15/19 09:07 Temperature 98.0 F Pulse Rate 79 Respiratory 19 Rate Blood Pressure 124/51 L dressing c/d/i, calf soft, nt rom 0-80, nvi a/p PT dvt ppx pain control d/c home today f/u in 1 week
--- NOTE | 2019-03-15 09:49 | DS ---
Physical Examination Vital Signs: Vital Signs Temperature 98.0 F 03/15/19 09:07 Pulse Rate 79 03/15/19 09:07 Respiratory Rate 19 03/15/19 09:07 Blood Pressure 124/51 L 03/15/19 09:07 O2 Sat by Pulse Oximetry (%) 95 03/15/19 09:10 Discharge Summary Reason For Visit: OSTEOARTHRITIS Procedures: Principal: right medial cookie ukr Hospital Course: admitted for elective right medial cookie ukr, uneventful post-op, stable for d/c Condition: Good - Instructions Diet, Activity, Other Instructions: Post-op Instructions-Partial Knee Replacement Call the office for a follow-up appointment in 1 week - [phone] Aspirin 325mg daily for 6 weeks. Pain medication was sent into your pharmacy. Apply Graduated Compression Stockings (TEDs) to both lower extremities- remove daily for hygiene ONLY Apply Sequential Compression Device (SCDs) to both Lower extremities remove for PT and hygiene ONLY Apply cold packs to affected area for 15 minutes every 2 hours. Physical Therapist will come to your home for the first 5 days. You will be set up with outpatient PT at your first post-operative visit. Patient may ambulate as tolerated-encourage self care (at least every 2-3 hours while awake) with walker or cane Maintain Aquacel (waterproof) dressing to operative wound (will be removed by surgeon at first office visit) Shower with Aquacel dressing in place-if Aquacel integrity compromised, remove and apply dry sterile dressing and notify Orthopedist. DO NOT SHOWER unless Orthopedists approves without Aquacel dressing CONTACT THE OFFICE FOR ANY CHANGE IN YOUR CONDITION (for example-fever greater than 102 degrees, excessive bleeding from operative site, purulent drainage, severe swelling or pain) GO TO THE EMERGENCY ROOM IF THERE IS A MEDICAL EMERGENCY Knee Precautions: * Keep a rolled towel under affected heel while in bed or chair (to keep knee in extension) * Keep affected leg elevated except during mealtimes * DO NOT PLACE PILLOW UNDER AFFECTED KNEE * If you have any questions, please do not hesitate to call the office - . Referrals: Jase Vizcarra MD [Staff Physician] - Disposition: VNS/HOME HEALTH CARE - Home Medications Comprehensive Discharge Medication List: Ambulatory Orders Aspirin 81 mg PO DAILY 02/22/12 Aspirin/Dipyridamole [Aggrenox -] 1 combo PO BID 05/16/12 Atorvastatin Ca [Lipitor] 20 mg PO HS #0 tab 07/21/17 Sitagliptin Phosphate [Januvia] 100 mg PO DAILY #0 tab 07/21/17 Tamsulosin HCl 0.4 mg PO HS #0 cap 07/21/17 Bupropion HCl 100 mg PO DAILY 12/22/18 Duloxetine HCl [Cymbalta] 60 mg PO HS 12/22/18 Ferrous Sulfate 325 mg PO HS 12/22/18 Insulin (Levemir) [Levemir Vial] 5 units SQ HS 12/22/18 Insulin Aspart (Niacinamide) [Fiasp 100 Unit/ml Flextouch] 7 unit SQ ACDIN 12/22 Losartan Potassium 25 mg PO DAILY 12/22/18 Multivitamins [Multivit ([facility] Formulary)] 1 tab PO DAILY 12/22/18 Pioglitazone HCl/Metformin HCl [Actoplus Met 15 mg-850 mg Tab] 1 each PO BID Oxycodone HCl/Acetaminophen [Percocet 5-325 mg Tablet] 1 - 2 tab PO Q6H #30 tab MDD 6 03/14/19
[2019-03-15] MEDS ORDERED: LOSARTAN POTASSIUM 25 MG TABLET PO SCH (10:00)
[2019-03-15] MEDS ORDERED: sitaGLIPtin PHOSPHATE 50 MG TABLET PO SCH (10:00)
[2019-03-15] MEDS ORDERED: ASPIRIN 81 MG CHEWABLE TABLETS PO SCH (10:00)
[2019-03-15] MEDS ORDERED: buPROPion HCL 100 MG TABLET PO SCH (10:00)
[2019-03-15] MEDS ORDERED: MULTIVITAMINS (DAILY MVI) TABLET (FP) PO SCH (10:00)
[2019-03-15] MEDS ORDERED: ASPIRIN/DIPYRIDAMOLE 25 MG/200 MG CAPSULE (FP) PO SCH (10:00)
[2019-03-15] MEDS ORDERED: PT OWN MED DRAWER 7, Y5N ONE (10:41)
--- NOTE | 2019-03-15 11:39 | PN ---
Progress Note, Physician Chief Complaint: s/p right medial knee replacement under spinal anesthesia post op day one History of Present Illness: under spinal anesthesia, paravertebral block for post op pain control. - Current Medication List Current Medications: Active Medications Acetaminophen (Tylenol -) 650 mg PO Q6H [facility] Stop: 03/17/19 17:59 Last Admin: 03/15/19 11:27 Dose: Not Given Al Hydroxide/Mg Hydroxide (Mylanta Oral Suspension -) 30 ml PO Q4H PRN PRN Reason: DYSPEPSIA Aspirin (Asa -) 81 mg PO DAILY [facility] Last Admin: 03/15/19 10:42 Dose: 81 mg Atorvastatin Calcium (Lipitor -) 20 mg PO HS [facility] Last Admin: 03/14/19 21:14 Dose: 20 mg Bupropion HCl (Wellbutrin -) 100 mg PO DAILY [facility] Last Admin: 03/15/19 09:17 Dose: 100 mg Dipyridamole/Aspirin (Aggrenox -) 1 combo PO BID [facility] Last Admin: 03/15/19 10:42 Dose: 1 combo Duloxetine HCl (Cymbalta -) 60 mg PO HS [facility] Last Admin: 03/14/19 21:14 Dose: 60 mg Ferrous Sulfate (Feosol -) 325 mg PO HS [facility] Last Admin: 03/14/19 21:13 Dose: 325 mg Insulin Aspart (Novolog Vial Sliding Scale -) 1 vial SQ [facility]; Protocol Last Admin: 03/15/19 11:26 Dose: 4 units Insulin Detemir (Levemir Vial) 5 units SQ HS [facility] Last Admin: 03/14/19 21:17 Dose: 5 units Losartan Potassium (Cozaar -) 25 mg PO DAILY [facility] Last Admin: 03/15/19 09:13 Dose: 25 mg Metformin HCl (Glucophage -) 850 mg PO BIDI [facility] Last Admin: 03/15/19 08:31 Dose: 850 mg Multivitamins/Minerals/Vitamin C (Tab-A-Vit -) 1 tab PO DAILY [facility] Last Admin: 03/15/19 09:13 Dose: 1 tab Non-Formulary Medication (Insulin Aspart (Niacinamide) [Fiasp 100 Unit/Ml Flextouch]) 7 unit SQ ACDIN [facility] Ondansetron HCl (Zofran Injection) 4 mg IVPUSH Q6H PRN PRN Reason: NAUSEA Oxycodone HCl (Roxicodone -) 5 mg PO Q3H PRN PRN Reason: PAIN LEVEL 1-5 Last Admin: 03/15/19 08:29 Dose: 5 mg Oxycodone HCl (Roxicodone -) 10 mg PO Q3H PRN PRN Reason: PAIN LEVEL 6-10 Pantoprazole Sodium (Protonix -) 40 mg PO DAILY [facility] Last Admin: 03/15/19 09:13 Dose: 40 mg Pioglitazone HCl (Actos -) 15 mg PO BIDI [facility] Last Admin: 03/15/19 08:31 Dose: 15 mg Senna/Docusate Sodium (Pericolace -) 2 tablet PO BID [facility] Last Admin: 03/15/19 09:13 Dose: 2 tablet Sitagliptin Phosphate (Januvia -) 100 mg PO DAILY [facility] Last Admin: 03/15/19 09:13 Dose: 100 mg Tamsulosin HCl (Flomax -) 0.4 mg PO HS [facility] Last Admin: 03/14/19 21:13 Dose: 0.4 mg - Objective Vital Signs: Vital Signs Temperature 98.0 F 03/15/19 09:07 Pulse Rate 79 03/15/19 09:07 Respiratory Rate 03/15/19 09:07 Blood Pressure 124/51 L 03/15/19 09:07 O2 Sat by Pulse Oximetry (%) 95 03/15/19 09:10 Constitutional: Yes: Well Nourished Cardiovascular: Yes: WNL Respiratory: Yes: WNL Gastrointestinal: Yes: WNL Assessment/Plan Pain controlled, no adverse anesthetic effects, dept of anesthesia will sign off care at this point.
== END 2019-03-15 11:48 | disposition home health service (06) ==
LOC: FASU 08:03 → FASUSAT 08:03 → FM/S 13:15 → FASUSAT 03-15 11:48
PROVIDERS: ATTEND Orthopaedic Surgery
PROC: 8E0YXBZ Computer Assisted Procedure of Lower Extremity (ICD-10-PCS; 2019-03-14)
PROC: 8E0Y0CZ Robotic Assisted Procedure of Lower Extremity, Open Approach (ICD-10-PCS; 2019-03-14)
PROC: 0SRC0L9 Replacement of Right Knee Joint with Medial Unicondylar Synthetic Substitute, Cemented, Open Approach (ICD-10-PCS; principal; 2019-03-14 10:09)
DX: M17.11 Unilateral primary osteoarthritis, right knee (principal)
CPT/HCPCS: 20985; 27446; C1776; S2900; 36415; 73560-TC-RT-FY; 82962; 83525; 94760; 97116-GP; 97163-GP

== ENCOUNTER 2019-12-13 16:33 | Inpatient (IN) | payer OTHER ==
--- NOTE | 2019-12-13 16:39 | PDOC ---
Rapid Medical Evaluation Time Seen by Provider: 12/13/19 16:35 Medical Evaluation: Allergies Allergy/AdvReac Type Severity Reaction Status Date / Time No Known Drug Allergies Allergy Verified 03/09/19 17:15 12/13/19 16:36 Pt c/o: left sided and numbness 1 hour ago, went he stood up from recliner he fell due to left leg weakness, no headache, no chest pain, tia in the past Pt on brief exam: no left sided weakness, no facial drooping, subjective decreased sharp sensation to left arm and hand pt ordered for: stroke w/u Pt to proceed to the ED Discharge Disposition - Diagnosis Left-sided weakness - Referrals Referrals: Jackelin Funk MD [Primary Care Provider] - - Patient Instructions - Post Discharge Activity
--- NOTE | 2019-12-13 17:18 | PDOC ---
History of Present Illness - History of Present Illness Initial Comments: The pt is a 79M w/ a history of DM and TIA (1998) on Aggrenox who presents for evaluation of LUE/LLE weakness that started at 1400 today. He reports that his symptoms have been improving since that time. Denies trauma. Denies slurred speech, change in vision, chest pain, trouble breathing, fevers, CALL. He took his morning Aggrenox and took ASA 162mg today. Neurologist: Dr. Corona at [facility] PCP: Dr. Funk 12/13/19 17:09 <Tim Hopper - Last Filed: 12/13/19 19:06> <Krystle Perez - Last Filed: 12/13/19 19:08> - General Chief Complaint: CVA/TIA Stated Complaint: NUMB FEELING HAND AND LEG LEFT Time Seen by Provider: 12/13/19 16:35 NIH Stroke Scale - Last Known Well Date/Time & Onset Date Last Known Well: 12/13/19 Time Last Known Well: 14:00 - Initial Evaluation Level of consciousness: Alert Ask patient the month and their age: Answers both correctly Ask patient to open & close eyes; make fist and let go: Obeys both correctly Best gaze (horizontal eye movement): Normal Visual field testing: No visual field loss Facial paresis (Show teeth/raise eyebrows/close eyes tight): Normal symmetrical movement Motor Function: Left Arm: Drift Motor Function: Right Arm: Normal (extends arm 90 (or 45) degrees for 10 seconds without drift Motor Function: Left Leg: Normal (extends leg 30 degrees for 5 seconds without drift) Motor Function: Right Leg: Normal (extends leg 30 degrees for 5 seconds without drift) Limb Ataxia: No ataxia Sensory(Use pinprick test arms,legs,trunk,face/side to side): Normal Best language (Describe picture, name items, read sentences): No Aphasia Dysarthria (read several words): Normal articulation Extinction and Inattention: No abnormality - Total Score NIH Stroke Scale Score: 1 <Tim Hopper - Last Filed: 12/13/19 19:06> tPA Exclusion checklist 3-4.5h - Time Elapsed Date last known well: 12/13/19 Time last known well: 14:00 Elaspsed time: Day(s) and 5 Hour(s) and 6 Minutes - Thrombolytic Therapy Candidate Is patient eligible for thrombolytic therapy: No - Relative Exclusion Criteria 3-4.5 hr Stroke severity too mild (non-disabling): Yes <Tim Hopper - Last Filed: 12/13/19 19:06> Past History - Past Medical History Anemia: Yes (STARTED ON IRON) Asthma: No Cancer: No Cardiac Disorders: No CVA: Yes (TIA'S X FEW TIMES,MAJOR ONE WAS ,LAST TIA MANY YEARS AGO) COPD: No CHF: No Dementia: No Diabetes: Yes (IDDM 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) GI Disorders: No Disorders: Yes (kidney stones,BPH) HTN: No (ON LOSARTAN FOR KIDNEY PROTECTION) Hypercholesterolemia: Yes Liver Disease: No Seizures: No Thyroid Disease: No - Surgical History Abdominal Surgery: Yes (REPAIR PYLORIC STENOSIS ) Appendectomy: No Cardiac Surgery: No Cholecystectomy: No Lung Surgery: No Neurologic Surgery: No Orthopedic Surgery: Yes (ORIF 1960 RIGHT ARM,RIGHT KNEE ARTHROSCOPY) - Immunization History Immunization Up to Date: Yes - Psycho Social/Smoking Cessation Hx Smoking Status: No Smoking History: Never smoked Have you smoked in the past 12 months: No Number of Cigarettes Smoked Daily: 0 If you are a former smoker, when did you quit?: 1973 Information on smoking cessation initiated: No Hx Alcohol Use: No Drug/Substance Use Hx: No Substance Use Type: None Hx Substance Use Treatment: Yes <Tim Hopper - Last Filed: 12/13/19 19:06> <Krystle Perez - Last Filed: 12/13/19 19:08> - Past Medical History Allergies/Adverse Reactions: Allergies Allergy/AdvReac Type Severity Reaction Status Date / Time No Known Drug Allergies Allergy Verified 12/13/19 16:38 Home Medications: Ambulatory Orders Aspirin 81 mg PO DAILY 02/22/12 Aspirin/Dipyridamole [Aggrenox -] 1 combo PO BID 05/16/12 Atorvastatin Ca [Lipitor] 20 mg PO HS #0 tab 07/21/17 Sitagliptin Phosphate [Januvia] 100 mg PO DAILY #0 tab 07/21/17 Tamsulosin HCl 0.4 mg PO HS #0 cap 07/21/17 Bupropion HCl 100 mg PO DAILY 12/22/18 Duloxetine HCl [Cymbalta] 60 mg PO HS 12/22/18 Ferrous Sulfate 325 mg PO HS 12/22/18 Insulin (Levemir) [Levemir Vial] 5 units SQ HS 12/22/18 Insulin Aspart (Niacinamide) [Fiasp 100 Unit/ml Flextouch] 7 unit SQ ACDIN 12/22 Losartan Potassium 25 mg PO DAILY 12/22/18 Multivitamins [Multivit ([facility] Formulary)] 1 tab PO DAILY 12/22/18 Pioglitazone HCl/Metformin HCl [Actoplus Met 15 mg-850 mg Tab] 1 each PO BID Oxycodone HCl/Acetaminophen [Percocet 5-325 mg Tablet] 1 - 2 tab PO Q6H #30 tab MDD 6 03/14/19 Review of Systems - Review of Systems Able to Perform ROS?: Yes Comments:: GENERAL/CONSTITUTIONAL: No fever or chills HEAD, EYES, EARS, NOSE AND THROAT: No change in vision. No change in hearing. No sore throat CARDIOVASCULAR: No chest pain or shortness of breath RESPIRATORY: Denies cough, hemoptysis GASTROINTESTINAL: No nausea, vomiting, diarrhea or constipation GENITOURINARY: No dysuria, frequency, or change in urination MUSCULOSKELETAL: No joint or muscle swelling or pain. No neck or back pain SKIN: No rash NEUROLOGIC: No headache, vertigo, loss of consciousness ENDOCRINE: No increased thirst. No abnormal weight change HEMATOLOGIC/LYMPHATIC: No anemia, easy bleeding, or history of blood clots ALLERGIC/IMMUNOLOGIC: No hives or skin allergy 12/13/19 17:25 Is the patient limited Azeri proficient: No <Tim Hopper - Last Filed: 12/13/19 19:06> *Physical Exam - Vital Signs Last Vital Signs Temp Pulse Resp BP Pulse Ox 98.1 F 96 H 18 156/72 96 12/13/19 16:36 12/13/19 16:36 12/13/19 16:36 12/13/19 16:36 12/13/19 16:36 - Physical Exam GENERAL: Awake, alert, and oriented to person/place/time, in no acute distress HEAD: No signs of trauma, normocephalic, atraumatic EYES: PERRLA, EOMI, sclera anicteric, conjunctiva clear ENT: Hearing grossly normal, nares patent, oropharynx clear without exudates. Moist mucosa LUNGS: No distress, speaks in full sentences, clear to auscultation bilaterally HEART: Regular rate and rhythm, normal S1 and S2, no murmurs appreciated, peripheral pulses normal and equal bilaterally ABDOMEN: Soft, nontender, normoactive bowel sounds. No guarding, no rebound EXTREMITIES: Normal inspection, Normal range of motion, no edema. No clubbing or cyanosis NEUROLOGICAL: Cranial nerves II through XII grossly intact. Normal speech, normal gait, mild drift in LUE (improved on attending exam), no sensory deficits SKIN: Warm, Dry 12/13/19 17:28 <Tim Hopper - Last Filed: 12/13/19 19:06> - Vital Signs Last Vital Signs Temp Pulse Resp BP Pulse Ox 98.2 F 81 16 142/57 L 100 12/13/19 17:42 12/13/19 18:33 12/13/19 18:33 12/13/19 18:33 12/13/19 18:33 <Krystle Perez - Last Filed: 12/13/19 19:08> ED Treatment Course - LABORATORY CBC & Chemistry Diagram: 12/13/19 16:50 12/13/19 16:50 <Tim Hopper - Last Filed: 12/13/19 19:06> - LABORATORY CBC & Chemistry Diagram: 12/13/19 16:50 12/13/19 16:50 - ADDITIONAL ORDERS Additional order review: Laboratory Results 12/13/19 12/13/19 12/13/19 16:50 16:50 16:50 PT with INR INR PTT (Actin FS) Sodium 140 Potassium 4.5 Chloride 106 Carbon Dioxide 28 Anion Gap 6 L BUN 17.5 Creatinine 1.1 Est GFR (CKD-EPI)AfAm 73.61 Est GFR (CKD-EPI)NonAf 63.51 Random Glucose 199 H Calcium 9.0 Total Bilirubin 0.2 AST 18 ALT 27 Alkaline Phosphatase 73 Creatine Kinase 92 Troponin I < 0.02 Total Protein 6.3 L Albumin 3.7 Triglycerides 134 Cholesterol 158 Total LDL Cholesterol 75 HDL Cholesterol 59 Blood Type O POSITIVE Antibody Screen Negative 12/13/19 16:50 PT with INR 10.70 INR 0.91 PTT (Actin FS) 34.8 Sodium Potassium Chloride Carbon Dioxide Anion Gap BUN Creatinine Est GFR (CKD-EPI)AfAm Est GFR (CKD-EPI)NonAf Random Glucose Calcium Total Bilirubin AST ALT Alkaline Phosphatase Creatine Kinase Troponin I Total Protein Albumin Triglycerides Cholesterol Total LDL Cholesterol HDL Cholesterol Blood Type Antibody Screen 12/13/19 16:50 RBC 3.87 L MCV 87.6 MCHC 33.6 RDW 15.4 MPV 8.2 Neutrophils % 65.1 Lymphocytes % 19.9 D Monocytes % 8.7 Eosinophils % 4.6 H D Basophils % 1.7 D <Krystle Perez - Last Filed: 12/13/19 19:08> Medical Decision Making - Medical Decision Making The pt is a 79M w/ a history of DM and TIA (1998) on Aggrenox who presents for evaluation of LUE/LLE weakness that started at 1400 today. 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 Rouse, will evaluate pt Labs sent ECG Pt not a candidate for TPA S/p ASA 162mg PO at home and Aggrenox 12/13/19 17:28 ECG w/ sinus rhythm; HR 84; QTc 449, no axis deviation, no TEJ 12/13/19 17:33 No leukocytosis Anemia, noted, no indication to transfuse at this time Lytes unremarkable No MISSY LFTs wnl 12/13/19 18:10 Trop I neg Plan for admission for TIA/stroke Microblog sent, awaiting call back 12/13/19 18:28 Pt signed out to [facility] Admitting 12/13/19 19:04 <Tim Hopper - Last Filed: 12/13/19 19:06> Discharge - Discharge Information Problems reviewed: Yes - Admission Yes <Tim Hopper - Last Filed: 12/13/19 19:06> - Discharge Information Problems reviewed: Yes - Admission Yes <Krystle Perez - Last Filed: 12/13/19 19:08> - Discharge Information Clinical Impression/Diagnosis: Left-sided weakness, Transient ischemic attack Condition: Good
[2019-12-13 17:38] LABS: BASO % 1.7 % (0-2.0); EOS % 4.6 % (0-4.5); HEMATOCRIT 33.9 % (35.4-49); HEMOGLOBIN 11.4 GM/dL (11.7-16.9); LYMPH % 19.9 % (8-40); MCH 29.4 pg (25.7-33.7); MCHC 33.6 g/dl (32.0-35.9); MEAN CELL VOLUME 87.6 fl (80-96); MEAN PLT VOLUME 8.2 fl (7.5-11.1); MONO % 8.7 % (3.8-10.2); NEUT % 65.1 % (42.8-82.8); PLATELET COUNT 194 K/MM3 (134-434); RBC 3.87 M/mm3 (4.00-5.60); RDW 15.4 % (11.9-15.9); WHITE BLOOD COUNT 5.3 K/mm3 (4.0-10.0)
[2019-12-13 17:51] LABS: INR 0.91 (0.83-1.09); PROTHROMBIN TIME (PATIENT) 10.7 SEC (9.7-13.0)
[2019-12-13 17:54] LABS: ACTIVATED PTT 34.8 SECONDS (25.2-36.5)
--- NOTE | 2019-12-13 18:00 | PDOC ---
Documentation entered by Ernesto Alford SCRIBE, acting as scribe for Krystle Perez DO. Krystle Perez DO: This documentation has been prepared by the Prashanth lerner Xhesika, SCRIBE, under my direction and personally reviewed by me in its entirety. I confirm that the documentation accurately reflects all work, treatment, procedures, and medical decision making performed by me. 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 Patient states he fell asleep on the recliner with his L arm and L leg dropping from the recliner, he woke up at around 3:30 and his L arm and L leg were numb and he was not able to move them. Pt states he tried to stand up from the recliner and fell due to weakness. states she found him standing up in the bathroom shortly after and symptoms quickly resolved. Patients last normal was around 2pm. The patient denies chest pain, shortness of breath, headache and dizziness. Denies fever, chills, cough, nausea, vomiting, diarrhea and constipation. Denies dysuria, frequency, urgency and hematuria. Allergies: NKDA - Physicial Exam PE: 12/13/19 17:24 GENERAL: Awake, alert, and fully oriented, in no acute distress HEAD: No signs of trauma EYES: PERRLA, EOMI, sclera anicteric, conjunctiva clear ENT: Auricles normal inspection, hearing grossly normal, nares patent, oropharynx clear without exudates. Moist mucosa NECK: Normal ROM, supple, no lymphadenopathy, JVD, or masses LUNGS: Breath sounds equal, clear to auscultation bilaterally. No wheezes, and no crackles HEART: Regular rate and rhythm, normal S1 and S2, no murmurs, rubs or gallops ABDOMEN: Soft, nontender, normoactive bowel sounds. No guarding, no rebound. No masses EXTREMITIES: Normal range of motion, no edema. No clubbing or cyanosis. No cords, erythema, or tenderness NEUROLOGICAL: Cranial nerves II through XII grossly intact. heal louis raises normal. SKIN: Warm, Dry, normal turgor, no rashes or lesions noted. - Medical Decision Making 12/13/19 17:53 a/p: 79yo male with hx of hld, dm, bph, prior small cva with L arm and L leg weakness/paresthesias which have since resolved -pt with NIHSS = 0 upon arrival -pt with L arm and L leg weakness after laying them over the arm of a chair and falling asleep -poss wednesday night palsy vs tia -pt with stroke protocol -head ct, labs, ekg -head ct -neg besides old cva, no new findings -resident discussed the case with Dr. Rouse who is in the Er to see the patient -labs pending -currently asymptomatic -will need TIA workup in the hospital 12/13/19 18:36 labs reviewed neuro consult in resident discussed the case with [facility] covering dr. slater who accepts pt to service Heart Score/ECG Review - ECG Intrepretation Comment:: 12/13/19 17:59 sinus at 84, pacs, sinus arrhythmia, nl axis, no acute st/t wave findings
[2019-12-13 18:08] LABS: ALBUMIN 3.7 g/dl (3.4-5.0); BILIRUBIN,TOTAL 0.2 mg/dL (0.2-1); BLOOD UREA NITROGEN 17.5 mg/dL (7-18); CREATININE 1.1 mg/dL (0.55-1.3); POTASSIUM 4.5 mmol/L (3.5-5.1); TOT PROT 6.3 g/dl (6.4-8.2)
[2019-12-13 18:26] LABS: CHOLESTEROL 158 mg/dL (50-200); HDL CHOLESTEROL 59 mg/dL (40-60); LDL CHOLESTEROL (ONLY SJRH) 75 mg/dL (5-100); TRIGLYCERIDES 134 mg/dL (0-150)
--- NOTE | 2019-12-13 18:39 | CON.NEURO ---
Consult Consult Specialty:: Padma Referred by:: ER - History of Present Illness History of Present Illness: 79-year-old right-handedCaucasian man with history of TIA in the past on Aggrenox and aspirin history of diabetes was at his usual status of health until today when he had a sudden onset about 4 hours ago before presentation with left leg weakness and difficulty with the left arm. Patient took an extra aspirin no report of any recent travel patient comes the emergency room with his stroke protocol was initiated by the time patient was seen hhis NIH stroke scale dropped 1 patient was not a candidate for thrombolysis. Patient was stabilized in the emergency room. CAT scan of the head revealed no evidence of acute pathology patient with about 90% improvement no difficulty with speech. 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 Cardio/Vascular: Yes: HTN Renal/: Yes: Renal Calculi Endocrine: Yes: Diabetes Mellitus - Alcohol/Substance Use Hx Alcohol Use: No - Smoking History Smoking history: Never smoked Have you smoked in the past 12 months: No Aproximately how many cigarettes per day: 0 If you are a former smoker, when did you quit?: 1973 - Social History ADL: Independent Home Medications - Allergies Allergies/Adverse Reactions: Allergies Allergy/AdvReac Type Severity Reaction Status Date / Time No Known Drug Allergies Allergy Verified 12/13/19 16:38 - Home Medications Home Medications: Ambulatory Orders Aspirin 81 mg PO DAILY 02/22/12 Aspirin/Dipyridamole [Aggrenox -] 1 combo PO BID 05/16/12 Atorvastatin Ca [Lipitor] 20 mg PO HS #0 tab 07/21/17 Sitagliptin Phosphate [Januvia] 100 mg PO DAILY #0 tab 07/21/17 Tamsulosin HCl 0.4 mg PO HS #0 cap 07/21/17 Bupropion HCl 100 mg PO DAILY 12/22/18 Duloxetine HCl [Cymbalta] 60 mg PO HS 12/22/18 Ferrous Sulfate 325 mg PO HS 12/22/18 Insulin (Levemir) [Levemir Vial] 5 units SQ HS 12/22/18 Insulin Aspart (Niacinamide) [Fiasp 100 Unit/ml Flextouch] 7 unit SQ ACDIN 12/22 Losartan Potassium 25 mg PO DAILY 12/22/18 Multivitamins [Multivit ([facility] Formulary)] 1 tab PO DAILY 12/22/18 Pioglitazone HCl/Metformin HCl [Actoplus Met 15 mg-850 mg Tab] 1 each PO BID Oxycodone HCl/Acetaminophen [Percocet 5-325 mg Tablet] 1 - 2 tab PO Q6H #30 tab MDD 6 03/14/19 Family Medical History Family History: Unremarkable Review of Systems - Review of Systems Neurological: reports: Headache, Incoordination, Numbness Physical Exam-Neuro Vital Signs: Vital Signs Temperature 98.2 F 12/13/19 17:42 Pulse Rate 81 12/13/19 18:33 Respiratory Rate 16 12/13/19 18:33 Blood Pressure 142/57 L 12/13/19 18:33 O2 Sat by Pulse Oximetry (%) 100 12/13/19 18:33 Constitutional: Yes: Well Nourished Neck: Yes: WNL Labs: CBC, BMP 12/13/19 16:50 12/13/19 16:50 INR, PTT INR 0.91 (0.83-1.09) 12/13/19 16:50 - Neuro Exam Level Of Consciousness: Yes: Oriented to Person, Oriented to Place, Oriented to Time Eyes: Yes: PERRLA Speech: WNL Gag: Present DTR's: 0 Left Brachioradialis, 0 Right Brachioradialis, 0 Left Achilles, 0 Right Achilles, 1+ Left Bicep, 1+ Right Bicep Response to light touch: Abnormal Response to pain prick: Abnormal Response to temperature: Abnormal Motor Strength: 4/5: Left Arm, Right Arm, Left Leg, Right Leg Gait: Deferred Imaging - Results Cat Scan: Image Reviewed Problem List - Problems (1) Left-sided weakness Code(s): R53.1 - WEAKNESS Assessment/Plan uestionable small lacunar stroke right MCA Risk factor includes being a man over 7T history of TIA in the past with diabetes coronary artery disease 1. Neuro checks every 1 hour. 2. MRI of the brain with no contrast. 3. Carotid Doppler. 4. Continue the Aggrenox. 5. Stop the baby aspirin. 6. Plavix 75 mg once daily. 7 . Echocardiogram. 8. Fall precautions. 9. SCDs. 10. Physical therapy Thank you very much for referring this patient for neurological consultation. Olivia Rouse M.D., MSc [facility] [address] [place] [address] Office
--- NOTE | 2019-12-13 19:28 | HP ---
Admitting History and Physical - Primary Care Physician PCP: Jackelin Funk - Admission Chief Complaint: LUE/LLE Numbness History of Present Illness: This is a 79 y/o man with a PMHx of DM, TIA (1998) on Aggrenox. Who presents to the ED for evaluation of LUE/LLE weakness that started at 1400 today. He reports that his symptoms have been improving since that time. Denies trauma. Denies slurred speech, change in vision, chest pain, trouble breathing, fevers, CALL. He took his morning Aggrenox and took ASA 162mg today. 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 Cardiovascular: Yes: HTN Renal/: Yes: Renal Calculi Endocrine: Yes: Diabetes Mellitus - Past Surgical History Past Surgical History: Yes: Arthrosocopy (right knee) Additional Past Surgical History: ORIF- Right Arm - Smoking History Smoking history: Former smoker Have you smoked in the past 12 months: No Aproximately how many cigarettes per day: 0 If you are a former smoker, when did you quit?: 1973 - Alcohol/Substance Use Hx Alcohol Use: No History of Substance Use: reports: None - Social History Usual Living Arrangement: Yes: With Spouse ADL: Independent History of Recent Travel: No Home Medications - Allergies Allergies/Adverse Reactions: Allergies Allergy/AdvReac Type Severity Reaction Status Date / Time No Known Drug Allergies Allergy Verified 12/13/19 16:38 - Home Medications Home Medications: Ambulatory Orders Aspirin 81 mg PO DAILY 02/22/12 Aspirin/Dipyridamole [Aggrenox -] 1 combo PO BID 05/16/12 Atorvastatin Ca [Lipitor] 20 mg PO HS #0 tab 07/21/17 Sitagliptin Phosphate [Januvia] 100 mg PO DAILY #0 tab 07/21/17 Tamsulosin HCl 0.4 mg PO HS #0 cap 07/21/17 Bupropion HCl 100 mg PO DAILY 12/22/18 Duloxetine HCl [Cymbalta] 60 mg PO HS 12/22/18 Ferrous Sulfate 325 mg PO HS 12/22/18 Insulin (Levemir) [Levemir Vial] 5 units SQ HS 12/22/18 Insulin Aspart (Niacinamide) [Fiasp 100 Unit/ml Flextouch] 7 unit SQ ACDIN 12/22/18 Losartan Potassium 25 mg PO DAILY 12/22/18 Multivitamins [Multivit ([facility])] 1 tab PO DAILY 12/22/18 Pioglitazone HCl/Metformin HCl [Actoplus Met 15 mg-850 mg Tab] 1 each PO BID 03/09/19 Oxycodone HCl/Acetaminophen [Percocet 5-325 mg Tablet] 1 - 2 tab PO Q6H #30 tab MDD 6 03/14/19 Family Medical History Family History: Unremarkable Review of Systems - Review of Systems Constitutional: reports: Weakness Eyes: reports: No Symptoms HENT: reports: No Symptoms Neck: reports: No Symptoms Cardiovascular: reports: No Symptoms Respiratory: reports: No Symptoms Gastrointestinal: reports: No Symptoms Genitourinary: reports: No Symptoms Breasts: reports: No Symptoms Reported Musculoskeletal: reports: Muscle Weakness Integumentary: reports: No Symptoms Neurological: reports: Headache, Incoordination, Numbness, Weakness Endocrine: reports: No Symptoms Hematology/Lymphatic: reports: No Symptoms Psychiatric: reports: No Symptoms Physical Examination Vital Signs: Vital Signs Temperature 98.2 F 12/13/19 17:42 Pulse Rate 81 12/13/19 18:33 Respiratory Rate 16 12/13/19 18:33 Blood Pressure 142/57 L 12/13/19 18:33 O2 Sat by Pulse Oximetry (%) 100 12/13/19 18:33 Constitutional: Yes: Well Nourished, No Distress, Calm Eyes: Yes: WNL, Conjunctiva Clear, EOM Intact, PERRL HENT: Yes: WNL, Atraumatic, Normocephalic Neck: Yes: WNL, Supple, Trachea Midline Cardiovascular: Yes: WNL, Regular Rate and Rhythm, S1, S2 Respiratory: Yes: WNL, Regular, CTA Bilaterally Gastrointestinal: Yes: WNL, Normal Bowel Sounds, Soft ...Rectal Exam: Yes: Deferred Renal/: Yes: WNL Breast(s): Yes: WNL Musculoskeletal: Yes: WNL Extremities: Yes: WNL Edema: No Peripheral Pulses WNL: Yes Neurological: Yes: Alert, Oriented, Cran Nerves II-XII Intact, Numbness, Weakness. No: Facial Droop ...Motor Strength: LUE (3/5), LLE (4/5), RUE (5/5), RLE (5/5) Psychiatric: Yes: WNL, Alert, Oriented Labs: CBC, BMP 12/13/19 16:50 12/13/19 16:50 Laboratory Results - last 24 hr 12/13/19 12/13/19 12/13/19 16:50 16:50 16:50 WBC 5.3 RBC 3.87 L Hgb 11.4 L Hct 33.9 L MCV 87.6 MCH 29.4 MCHC 33.6 RDW 15.4 Plt Count 194 D MPV 8.2 Absolute Neuts (auto) 3.5 Neutrophils % 65.1 Lymphocytes % 19.9 D Monocytes % 8.7 Eosinophils % 4.6 H D Basophils % 1.7 D Nucleated RBC % 0 PT with INR 10.70 INR 0.91 PTT (Actin FS) 34.8 Sodium Potassium Chloride Carbon Dioxide Anion Gap BUN Creatinine Est GFR (CKD-EPI)AfAm Est GFR (CKD-EPI)NonAf POC Glucometer Random Glucose Calcium Phosphorus Magnesium Total Bilirubin AST ALT Alkaline Phosphatase Creatine Kinase 92 Troponin I < 0.02 Total Protein Albumin Triglycerides 134 Cholesterol 158 Total LDL Cholesterol 75 HDL Cholesterol 59 Blood Type Antibody Screen 12/13/19 12/13/19 12/13/19 16:50 16:50 23:10 WBC RBC Hgb Hct MCV MCH MCHC RDW Plt Count MPV Absolute Neuts (auto) Neutrophils % Lymphocytes % Monocytes % Eosinophils % Basophils % Nucleated RBC % PT with INR INR PTT (Actin FS) Sodium 140 141 Potassium 4.5 4.1 Chloride 106 107 Carbon Dioxide 28 29 Anion Gap 6 L 5 L BUN 17.5 16.9 Creatinine 1.1 1.2 Est GFR (CKD-EPI)AfAm 73.61 66.26 Est GFR (CKD-EPI)NonAf 63.51 57.17 POC Glucometer Random Glucose 199 H 208 H Calcium 9.0 8.6 Phosphorus 3.9 Magnesium 1.6 L Total Bilirubin 0.2 0.3 AST 18 19 ALT 27 25 Alkaline Phosphatase 73 74 Creatine Kinase Troponin I < 0.02 Total Protein 6.3 L 5.5 L Albumin 3.7 3.1 L Triglycerides Cholesterol Total LDL Cholesterol HDL Cholesterol Blood Type O POSITIVE Antibody Screen Negative 12/13/19 23:18 WBC RBC Hgb Hct MCV MCH MCHC RDW Plt Count MPV Absolute Neuts (auto) Neutrophils % Lymphocytes % Monocytes % Eosinophils % Basophils % Nucleated RBC % PT with INR INR PTT (Actin FS) Sodium Potassium Chloride Carbon Dioxide Anion Gap BUN Creatinine Est GFR (CKD-EPI)AfAm Est GFR (CKD-EPI)NonAf POC Glucometer 217 Random Glucose Calcium Phosphorus Magnesium Total Bilirubin AST ALT Alkaline Phosphatase Creatine Kinase Troponin I Total Protein Albumin Triglycerides Cholesterol Total LDL Cholesterol HDL Cholesterol Blood Type Antibody Screen Intake & Output 12/11/19 12/12/19 12/13/19 12/14/19 23:59 23:59 23:59 23:59 Weight 91.172 kg Current Medications Generic Name Dose Route Start Last Admin Trade Name Marioq PRN Reason Stop Dose Admin Atorvastatin Calcium 20 mg 12/13/19 22:00 12/13/19 23:16 Lipitor - PO 20 mg HS [facility] Administration Bupropion HCl 100 mg 12/14/19 10:00 Wellbutrin - PO DAILY [facility] Clopidogrel Bisulfate 75 mg 12/14/19 10:00 Plavix - PO DAILY [facility] Duloxetine HCl 60 mg 12/14/19 22:00 Cymbalta - PO HS [facility] Ferrous Sulfate 325 mg 12/13/19 22:00 12/13/19 23:16 Feosol - PO 325 mg HS [facility] Administration Insulin Aspart 1 vial 12/13/19 22:00 12/13/19 23:19 Novolog Vial Sliding Scale - SQ 4 units ACHS [facility] Administration Protocol Insulin Detemir 10 units 12/13/19 22:00 12/13/19 23:19 Levemir Vial SQ 10 units HS [facility] Administration Losartan Potassium 25 mg 12/14/19 10:00 Cozaar - PO DAILY [facility] Multivitamins/Minerals/Vitamin C 1 tab 12/14/19 10:00 Tab-A-Vit - PO DAILY [facility] Sitagliptin Phosphate 100 mg 12/14/19 07:00 Januvia - PO AM [facility] Tamsulosin HCl 0.4 mg 12/13/19 22:00 12/13/19 23:16 Flomax - PO 0.4 mg HS [facility] Administration Imaging - Results Chest X-ray: Report Reviewed, Image Reviewed Cat Scan: Report Reviewed, Image Reviewed Ultrasound: Image Reviewed MRI: Pending EKG: Image Reviewed Problem List - Problems (1) Transient ischemic attack Assessment/Plan: r/o CVA NIHSS [address] reviewed Neurology following MRI Brain-pending Neurochecks Fall Precautions Swallow eval Chest Xray-reviewed Monitor CBC, BMP Start Plavix tomorrow, per Neurologist Hold Aggrenox Code(s): G45.9 - TRANSIENT CEREBRAL ISCHEMIC ATTACK, UNSPECIFIED (2) Left-sided weakness Assessment/Plan: see above Code(s): R53.1 - WEAKNESS (3) Diabetes mellitus Assessment/Plan: stable BGMs ISS Monitor BMP Code(s): E11.9 - TYPE 2 DIABETES MELLITUS WITHOUT COMPLICATIONS (4) Hypertension Assessment/Plan: stable Monitor BP Continue Losartan Monitor renal function Code(s): I10 - ESSENTIAL (PRIMARY) HYPERTENSION (5) Anemia Assessment/Plan: stable Will transfuse if Hgb is < 7.0 Monitor CBC Code(s): D64.9 - ANEMIA, UNSPECIFIED Assessment/Plan This is a 79 y/o man with a significant past medical history of TIA (on Aggrenox, 99), HTN, DM, Anemia, Renal Calculi. Admitted to Telemetry for TIA for further evaluation of their emergent condition. Plan: See Problem List FEN PO fluids as tolerated Replete lytes prn Low Na, Diabetic Diet DVT ppx SCDs Heparin SQ Dispo: Requires Inpatient Care Visit type - Emergency Visit Emergency Visit: Yes ED Registration Date: 12/13/19 Care time: The patient presented to the Emergency Department on the above date and was hospitalized for further evaluation of their emergent condition. - New Patient This patient is new to me today: Yes Date on this admission: 12/13/19 - Critical Care Critical Care patient: No
[2019-12-13] MEDS ORDERED: DULoxetine HCL 60 MG CAPSULE.DR PO SCH (22:00)
[2019-12-13 22:27] VITALS: BMI 28.8
[2019-12-13] MEDS ORDERED: DULoxetine HCL 30 MG CAPSULE.DR PO ONE (23:11)
[2019-12-13] MEDS: ATORVASTATIN CA 20 MG TABLET (FP) PO SCH (23:16)
[2019-12-13] MEDS: FERROUS SO4 325 MG TABLET (FP) PO SCH (23:16)
[2019-12-13] MEDS: TAMSULOSIN HCL 0.4 MG CAP PO SCH (23:16)
[2019-12-13] MEDS: INSULIN (LEVEMIR) 100 UNITS/ML UNITS SQ SCH (23:19)
[2019-12-13] MEDS: INSULIN SLIDING SCALE (NOVOLOG) 1 VIAL SQ SCH (23:19)
[2019-12-14 00:20] LABS: ALBUMIN 3.1 g/dl (3.4-5.0); ALK PHOS 74 U/L (45-117); ANION GAP 5 MMOL/L (8-16); BILIRUBIN,TOTAL 0.3 mg/dL (0.2-1); BLOOD UREA NITROGEN 16.9 mg/dL (7-18); CALCIUM 8.6 mg/dL (8.5-10.1); CHLORIDE 107 mmol/L (98-107); CO2 29 mmol/L (21-32); CREATININE 1.2 mg/dL (0.55-1.3); GLUCOSE,RANDOM 208 mg/dL (74-106); MAGNESIUM 1.6 mg/dL (1.8-2.4); PHOSPHOROUS 3.9 mg/dL (2.5-4.9); POTASSIUM 4.1 mmol/L (3.5-5.1); SGOT/AST 19 U/L (15-37); SGPT/ALT 25 U/L (13-61); SODIUM 141 mmol/L (136-145); TOT PROT 5.5 g/dl (6.4-8.2)
[2019-12-14] MEDS ORDERED: MAGNESIUM SULF 50% (8.12 MEQ/2 ML-1 GM VIAL) IVPB ONE (01:06)
--- NOTE | 2019-12-14 01:58 | HOSP ---
Subjective - Review of Symptoms Events since last encounter: Hospitalist Encounter Notified by the RN that the patient had an unwitnessed fall in the bathroom. Was asked to assess. Subjective: Arrived to bedside, patient is AAOx3, reports falling in the bathroom due to his L Leg weakness. Patient denies hitting his head or LOC. Patient has no complaints at this time. Patient advised to use the Bedpan or Urinal for elimination needs. Patient is not amendable. Physical Exam performed see EMR Physical Examination Vital Signs: Vital Signs Temperature 97.6 F 12/14/19 01:00 Pulse Rate 76 12/14/19 01:00 Respiratory Rate 18 12/14/19 01:00 Blood Pressure 140/79 12/14/19 01:00 O2 Sat by Pulse Oximetry (%) 95 12/13/19 23:00 Constitutional: Yes: Well Nourished, No Distress, Calm, Obese Eyes: Yes: WNL, Conjunctiva Clear, EOM Intact, PERRL HENT: Yes: WNL, Atraumatic, Normocephalic Neck: Yes: WNL, Supple, Trachea Midline Cardiovascular: Yes: WNL, Regular Rate and Rhythm, S1, S2 Respiratory: Yes: WNL, Regular, CTA Bilaterally Gastrointestinal: Yes: WNL, Normal Bowel Sounds, Soft, Abdomen, Obese ...Rectal Exam: Yes: Deferred Renal/: Yes: WNL Breast(s): Yes: WNL Musculoskeletal: Yes: Muscle Weakness (LLE) Extremities: Yes: WNL Edema: No Peripheral Pulses WNL: Yes Neurological: Yes: Alert, Oriented, Numbness (L-hand), Unsteady Gait, Weakness. No: Dysarthria, Facial Droop ...Motor Strength: LUE (3/5), LLE (4/5), RUE (5/5), RLE (5/5) Psychiatric: Yes: WNL, Alert, Oriented Labs: CBC, BMP 12/13/19 16:50 12/13/19 23:10 Troponin, BNP 12/13/19 16:50 Troponin I < 0.02 Current Medications Generic Name Dose Route Start Last Admin Trade Name Freq PRN Reason Stop Dose Admin Atorvastatin Calcium 20 mg 12/13/19 22:00 12/13/19 23:16 Lipitor - PO 20 mg HS [facility] Administration Bupropion HCl 100 mg 12/14/19 10:00 Wellbutrin - PO DAILY [facility] Clopidogrel Bisulfate 75 mg 12/14/19 10:00 Plavix - PO DAILY [facility] Duloxetine HCl 60 mg 12/14/19 22:00 Cymbalta - PO HS [facility] Ferrous Sulfate 325 mg 12/13/19 22:00 12/13/19 23:16 Feosol - PO 325 mg HS [facility] Administration Insulin Aspart 1 vial 12/13/19 22:00 12/13/19 23:19 Novolog Vial Sliding Scale - SQ 4 units ACHS [facility] Administration Protocol Insulin Detemir 10 units 12/13/19 22:00 12/13/19 23:19 Levemir Vial SQ 10 units HS [facility] Administration Losartan Potassium 25 mg 12/14/19 10:00 Cozaar - PO DAILY [facility] Multivitamins/Minerals/Vitamin C 1 tab 12/14/19 10:00 Tab-A-Vit - PO DAILY [facility] Sitagliptin Phosphate 100 mg 12/14/19 07:00 Januvia - PO AM [facility] Tamsulosin HCl 0.4 mg 12/13/19 22:00 12/13/19 23:16 Flomax - PO 0.4 mg HS [facility] Administration Hospitalist Encounter Assessment: This is a 79 y/o man with a significant past medical history of TIA (on Aggrenox, 99), HTN, DM, Anemia, Renal Calculi. Admitted to Telemetry for TIA for further evaluation of their emergent condition. Outcome: EKG ordered earlier secondary to 9 sec run of Vtach, patient was asymptomatic- EKR- SR with PACs no change from prior study Mg 1.6- ordered Magnesium Sulfate 2grams Cardiology consult placed Earlier received Brain MRI result- small acute right lacunar infarct. Call placed to Dr. Rouse's service- still awaiting a call back d/w RN, who will call Dr. Rouse's service again to inform him of the results
--- NOTE | 2019-12-14 02:05 | FALL ---
Fall Exam - Event Witnessed fall: No Location of Fall: Bathroom Fall from: standing - Pre-Fall Mental Status: Alert, Oriented, Cooperative Current Medications: Current Medications Generic Name Dose Route Start Last Admin Trade Name Lori PRN Reason Stop Dose Admin Atorvastatin Calcium 20 mg 12/13/19 22:00 12/13/19 23:16 Lipitor - PO 20 mg HS [facility] Administration Bupropion HCl 100 mg 12/14/19 10:00 Wellbutrin - PO DAILY [facility] Clopidogrel Bisulfate 75 mg 12/14/19 10:00 Plavix - PO DAILY [facility] Duloxetine HCl 60 mg 12/14/19 22:00 Cymbalta - PO HS [facility] Ferrous Sulfate 325 mg 12/13/19 22:00 12/13/19 23:16 Feosol - PO 325 mg HS [facility] Administration Insulin Aspart 1 vial 12/13/19 22:00 12/13/19 23:19 Novolog Vial Sliding Scale - SQ 4 units ACHS [facility] Administration Protocol Insulin Detemir 10 units 12/13/19 22:00 12/13/19 23:19 Levemir Vial SQ 10 units HS [facility] Administration Losartan Potassium 25 mg 12/14/19 10:00 Cozaar - PO DAILY [facility] Multivitamins/Minerals/Vitamin C 1 tab 12/14/19 10:00 Tab-A-Vit - PO DAILY [facility] Sitagliptin Phosphate 100 mg 12/14/19 07:00 Januvia - PO AM [facility] Tamsulosin HCl 0.4 mg 12/13/19 22:00 12/13/19 23:16 Flomax - PO 0.4 mg HS [facility] Administration - Post-Fall Patient Outcome: No Injury Exam Findings: AAOx3, Head- Atraumatic, Normocephalic, Neck- Supple, non-tender, Lungs-CTAB, Heart- RRR, S1,S2, Abdomen-Obese, Soft, BS present, Musculoskeletal- non-tender, no deformity, Extremities- FROM, non tender, no rotation, no shortening. Pelvis/Hips- non-tender Treatment: None Vital Signs: Vital Signs Temperature 97.6 F 12/14/19 01:00 Pulse Rate 76 12/14/19 01:00 Respiratory Rate 18 12/14/19 01:00 Blood Pressure 140/79 12/14/19 01:00 O2 Sat by Pulse Oximetry (%) 95 12/13/19 23:00 LOC Post-Fall: Unchanged, Awake, Alert, Oriented Identify factors for HIGH RISK for Head Injury: None of the above (Head CT report- no evidence of intracranial hemorrhage, mass effect, hydrocephalus, s edison fx. 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
--- NOTE | 2019-12-14 09:05 | PN ---
Progress Note, Physician - Current Medication List Current Medications: Active Medications Atorvastatin Calcium (Lipitor -) 20 mg PO HS [facility] Last Admin: 12/13/19 23:16 Dose: 20 mg Documented by: Bupropion HCl (Wellbutrin -) 100 mg PO DAILY [facility] Clopidogrel Bisulfate (Plavix -) 75 mg PO DAILY [facility] Duloxetine HCl (Cymbalta -) 60 mg PO HS [facility] Ferrous Sulfate (Feosol -) 325 mg PO HS [facility] Last Admin: 12/13/19 23:16 Dose: 325 mg Documented by: Insulin Aspart (Novolog Vial Sliding Scale -) 1 vial SQ [facility]; Protocol Last Admin: 12/13/19 23:19 Dose: 4 units Documented by: Insulin Detemir (Levemir Vial) 10 units SQ [facility] Last Admin: 12/13/19 23:19 Dose: 10 units Documented by: Losartan Potassium (Cozaar -) 25 mg PO DAILY [facility] Multivitamins/Minerals/Vitamin C (Tab-A-Vit -) 1 tab PO DAILY [facility] Sitagliptin Phosphate (Januvia -) 100 mg PO AM [facility] Tamsulosin HCl (Flomax -) 0.4 mg PO [facility] Last Admin: 12/13/19 23:16 Dose: 0.4 mg Documented by: - Objective Vital Signs: Vital Signs Temperature 98.1 F 12/14/19 07:00 Pulse Rate 82 12/14/19 07:00 Respiratory Rate 18 12/14/19 07:00 Blood Pressure 140/90 12/14/19 07:00 O2 Sat by Pulse Oximetry (%) 95 12/13/19 23:00 Labs: CBC, BMP 12/13/19 16:50 12/13/19 23:10 INR, PTT INR 0.91 (0.83-1.09) 12/13/19 16:50
--- NOTE | 2019-12-14 10:25 | CONSULT ---
Admitting History and Physical - Primary Care Physician PCP: Jackelin Funk - Admission History of Present Illness: 79 y/o man with a significant past medical history of TIA (on Aggrenox, 99), HTN, DM, Anemia, Renal Calculi admitted 12/12 following left sided weakness. Unwitnessed fall in bathroom on 12/12 Brain MRI result- small acute right lacunar infarct. This is my first consult with this pt. 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 Cardiovascular: Yes: HTN Renal/: Yes: Renal Calculi Endocrine: Yes: Diabetes Mellitus - Past Surgical History Past Surgical History: Yes: Arthrosocopy (right knee) Additional Past Surgical History: ORIF- Right Arm - Smoking History Smoking history: Former smoker Have you smoked in the past 12 months: No Aproximately how many cigarettes per day: 0 If you are a former smoker, when did you quit?: 1973 - Alcohol/Substance Use Hx Alcohol Use: No History of Substance Use: reports: None - Social History ADL: Independent History of Recent Travel: No History - Admission Reason For Visit: DIABETES MELLITUS - Diagnostics X-ray: Report Reviewed CT Scan: Report Reviewed MRI: Report Reviewed - General Mental Status: Alert and Oriented, Awake and Alert, Able to Follow Commands Attention: Intact Ability to Follow Directions: Excellent Head/Neck Control: WFL - Hearing Hearing: Normal Hearing Aide: No With Patient: No Speech Evaluation - Communication Primary Language: [place] Communication: Yes: Within Normal Limits Oral Expression Ability: Yes: No Impairment - Speech Production Able to Make Needs Known: Yes: WNL Intelligibility: Yes: WNL - Speech Characteristics Voice Loudness: Normal Voice Pitch: Yes: Normal Voice Phonatory-based Quality: Yes: Normal Speech Pattern: Normal Speech Clarity: < 100% Nasal Resonance: Normal Articulation: Yes: Precise Rate of Speech: Intact - Language/Auditory Comprehension Follows: Yes: 2 Stage Simple Commands Observation: Able to respond to yes/no queries: No, Yes/No Confusion: Yes, Comprehends Conversational Speech: No - Language/Verbal Expression Able to Respond to Simple Queries: Yes: WNL Able to Communicate Wants and Needs: Yes: WNL Functional Communication Status: Yes: WNL - Memory/Perception halfway Memory: Yes: WNL Short Term Memory: Yes: WNL - Swallow Evaluation/Bedside Assessment Current Nutritional Intake: Regular, Thin Liquids Oral Secretions: Yes: WFL Dentition: Yes: Adequate Facial Symmetry at Rest: Facial Droop Left (slight) Facial Symmetry on Retraction: Symmetrical Facial Movement: Controlled Sensation: Normal Against Resistance Opening: Normal Against Resistance Closing: Normal Pucker Lips: Normal Smile: Normal Lingual Movement: Normal, Symmetric Lingual Speed of Movement: Normal Lingual Movement Strgth Against Opposition: Normal Lingual Movement Characteristics: Normal Velopharyngeal Movement: Normal Laryngeal Elevation: WFL Rate of Intake: WFL Bolus Size: WFL Labial Seal: WFL Chewing: WFL Oral Prep Time: WFL A-P Transit: WFL Pocketing: None Timing of Swallow: WFL Coughing/Throat Clear: No Change in Voice: No Recommendations - Speech Evaluation, Impression/Plan Impression: Speech, language,swallow,cognition intact. Left sided weakness. - Disposition [facility] to: [facility] - Dysphagia Impressions/Plan Swallowing Skills: WFL Dysphagia Impressions: No Impairment *Silent aspiration: cannot be R/O at bedside Dysphagia Treatment Plan: Elevate HOB during feed - Recommendations Diet Consistency: Regular Medication Administration: Whole with water Liquids: Thin Liquids
[2019-12-14] MEDS: MULTIVITAMINS (DAILY MVI) TABLET (FP) PO SCH (10:28)
[2019-12-14] MEDS: CLOPIDOGREL BISULFATE 75 MG TABLET (FP) PO SCH (10:28)
[2019-12-14] MEDS: LOSARTAN POTASSIUM 25 MG TABLET PO SCH (10:28)
--- NOTE | 2019-12-14 10:43 | PN ---
Progress Note, Physician Chief Complaint: AWAKE ALERT ABLE TO NAME PRESIDENT AKHIL ALERT AND ORIENTED X 3 S/P FALL OVERNIGHT MRI OF BRAIN DONE - Current Medication List Current Medications: Active Medications Atorvastatin Calcium (Lipitor -) 20 mg PO [facility] Last Admin: 12/13/19 23:16 Dose: 20 mg Documented by: Bupropion HCl (Wellbutrin -) 100 mg PO DAILY [facility] Clopidogrel Bisulfate (Plavix -) 75 mg PO DAILY [facility] Last Admin: 12/14/19 10:28 Dose: 75 mg Documented by: Duloxetine HCl (Cymbalta -) 60 mg PO [facility] Ferrous Sulfate (Feosol -) 325 mg PO [facility] Last Admin: 12/13/19 23:16 Dose: 325 mg Documented by: Insulin Aspart (Novolog Vial Sliding Scale -) 1 vial SQ [facility]; Protocol Last Admin: 12/13/19 23:19 Dose: 4 units Documented by: Insulin Detemir (Levemir Vial) 10 units SQ [facility] Last Admin: 12/13/19 23:19 Dose: 10 units Documented by: Losartan Potassium (Cozaar -) 25 mg PO DAILY [facility] Last Admin: 12/14/19 10:28 Dose: 25 mg Documented by: Multivitamins/Minerals/Vitamin C (Tab-A-Vit -) 1 tab PO DAILY [facility] Last Admin: 12/14/19 10:28 Dose: 1 tab Documented by: Sitagliptin Phosphate (Januvia -) 100 mg PO AM [facility] Tamsulosin HCl (Flomax -) 0.4 mg PO [facility] Last Admin: 12/13/19 23:16 Dose: 0.4 mg Documented by: - Objective Vital Signs: Vital Signs Temperature 98.1 F 12/14/19 07:56 Pulse Rate 82 12/14/19 07:56 Respiratory Rate 18 12/14/19 07:56 Blood Pressure 140/90 12/14/19 07:56 O2 Sat by Pulse Oximetry (%) 95 12/13/19 23:00 Constitutional: Yes: Mild Distress Cardiovascular: Yes: Regular Rate and Rhythm Respiratory: Yes: WNL Gastrointestinal: Yes: WNL Genitourinary: Yes: WNL Musculoskeletal: Yes: Muscle Weakness Edema: No Integumentary: Yes: WNL Wound/Incision: Yes: Clean/Dry Neurological: Yes: Pre-Existing Deficit Psychiatric: Yes: Other (DEPRESSION) Labs: CBC, BMP 12/13/19 16:50 12/13/19 23:10 INR, PTT INR 0.91 (0.83-1.09) 12/13/19 16:50 Problem List - Problems (1) Lacunar infarct, acute Code(s): I63.81 - OTHER CEREB INFRC DUE TO OCCLS OR STENOSIS OF SMALL ARTERY (2) Old cerebrovascular accident (CVA) without late effect Code(s): Z86.73 - PRSNL HX OF TIA (TIA), AND CEREB INFRC W/O RESID DEFICITS (3) Anemia Code(s): D64.9 - ANEMIA, UNSPECIFIED (4) Diabetes mellitus Code(s): E11.9 - TYPE 2 DIABETES MELLITUS WITHOUT COMPLICATIONS (5) Hypertension Code(s): I10 - ESSENTIAL (PRIMARY) HYPERTENSION (6) Left-sided weakness Code(s): R53.1 - WEAKNESS (7) Transient ischemic attack Code(s): G45.9 - TRANSIENT CEREBRAL ISCHEMIC ATTACK, UNSPECIFIED (8) Head injury Code(s): S09.90XA - UNSPECIFIED INJURY OF HEAD, INITIAL ENCOUNTER Qualifiers: Encounter type: initial encounter Qualified Code(s): S09.90XA - Unspecified injury of head, initial encounter Assessment/Plan I DISCUSSED WITH NEUROLOGY DR SON AND BOTH PLAVIX AND AGGRENOX WILL BE USED TO TREAT MR KELLY WITH HIGH RISK PATIENT FOR CVA, H/O DM, HTN, LIPIDEMIA AND OLD CVA. KEEP LDL <70 BP CONTROL PT EVAL DR REINA PMNR FOR GAIT WORKUP FALL RISKS NEURO CHECKS OOB WITH ASSIST DVT BOOTS FOR PROPHYLAXIS
--- NOTE | 2019-12-14 11:25 | CON.CARD ---
Consult Consult Specialty:: Cardiology Referred by:: Dr. Castro Reason for Consultation:: Abnormal ECG - History of Present Illness Chief Complaint: LUE and LLE weakness. History of Present Illness: 79 y ear-old man with a PMHx of HTN, DM, TIA (1998) on Aggrenox, anemia, renal calculi admitted 12/13/19 with LUE/LLE weakness. He had an unwitnessed fall in bathroom on 12/12. He reports that his symptoms have been improving since the onset of weakness. CT head and carotid duplex were unremarkable. Brain MRI showed- small acute right lacunar infarct. ECG 12/13/19 showed sinus rhythm. Normal axis. APCs. Otherwise normal ECG. Echo 12/14/19: Normal LV size, wall motion and systolic function. LVEF = 55-60%. Normal RV. Normal LA and RA in size. No significant valvular abnormalities. Tele shows sinus rhythm with frequent APCs and occasional single VPCs. 6 beat NSVT noted. - History Source History Provided By: Patient, Medical Record Limitations to Obtaining History: No Limitations - Past Medical History BROOM BUNDLER: Yes: TIA Cardio/Vascular: Yes: HTN Renal/: Yes: Renal Calculi Endocrine: Yes: Diabetes Mellitus - Past Surgical History Past Surgical History: Yes: Arthrosocopy (right knee) - Alcohol/Substance Use Hx Alcohol Use: No History of Substance Use: reports: None - Smoking History Smoking history: Former smoker Have you smoked in the past 12 months: No Aproximately how many cigarettes per day: 0 If you are a former smoker, when did you quit?: 1973 - Social History ADL: Independent History of Recent Travel: No Home Medications - Allergies Allergies/Adverse Reactions: Allergies Allergy/AdvReac Type Severity Reaction Status Date / Time No Known Drug Allergies Allergy Verified 12/13/19 16:38 - Home Medications Home Medications: Ambulatory Orders Aspirin 81 mg PO DAILY 02/22/12 Aspirin/Dipyridamole [Aggrenox -] 1 combo PO BID 05/16/12 Atorvastatin Ca [Lipitor] 20 mg PO HS #0 tab 07/21/17 Sitagliptin Phosphate [Januvia] 100 mg PO DAILY #0 tab 07/21/17 Tamsulosin HCl 0.4 mg PO HS #0 cap 07/21/17 Bupropion HCl 100 mg PO DAILY 12/22/18 Duloxetine HCl [Cymbalta] 60 mg PO HS 12/22/18 Ferrous Sulfate 325 mg PO HS 12/22/18 Insulin (Levemir) [Levemir Vial] 5 units SQ HS 12/22/18 Insulin Aspart (Niacinamide) [Fiasp 100 Unit/ml Flextouch] 7 unit SQ ACDIN 12/22/18 Losartan Potassium 25 mg PO DAILY 12/22/18 Multivitamins [Multivit ([facility] Formulary)] 1 tab PO DAILY 12/22/18 Pioglitazone HCl/Metformin HCl [Actoplus Met 15 mg-850 mg Tab] 1 each PO BID 03/09/19 Oxycodone HCl/Acetaminophen [Percocet 5-325 mg Tablet] 1 - 2 tab PO Q6H #30 tab MDD 6 03/14/19 Vital Signs: Vital Signs Temperature 98.1 F 12/14/19 09:56 Pulse Rate 79 12/14/19 09:56 Respiratory Rate 18 12/14/19 09:56 Blood Pressure 141/82 12/14/19 09:56 O2 Sat by Pulse Oximetry (%) 95 12/14/19 09:00 General: Well developed. Well nourished. No acute distress. Head: Normocephalic. Atraumatic, Eyes: PERRLA, EOMI. Sclerae anicteric. Conjunctivae clear. Neck: Supple. No JVD. No bruits. Heart: Normal S1, S2: Regular rhythm and rate. No murmur. No gallop or rub. Lungs: Symmetrical air entry. Clear to auscultation. No crackles. No wheezing or rhonchi. Abdomen: Soft. Bowel sound positive. Non tender. No masses. Extremities: No edema. No clubbing or cyanosis. - Other Data Labs, Other Data: CBC, BMP 12/13/19 16:50 12/13/19 23:10 INR, PTT INR 0.91 (0.83-1.09) 12/13/19 16:50 Troponin, BNP 12/13/19 12/13/19 16:50 23:10 Troponin I < 0.02 < 0.02 Troponin, BNP 12/13/19 12/13/19 16:50 23:10 Troponin I < 0.02 < 0.02 Assessment/Plan 79 y ear-old man with a PMHx of HTN, DM, TIA (1998) on Aggrenox, anemia, renal c alculi admitted 12/13/19 with LUE/LLE weakness. He had an unwitnessed fall in bathroom on 12/12. He reports that his symptoms have been improving since the onset of weakness. CT head and carotid duplex were unremarkable. Brain MRI showed- small acute right lacunar infarct. ECG 12/13/19 showed sinus rhythm. Normal axis. APCs. Otherwise normal ECG. Echo 12/14/19: Normal LV size, wall motion and systolic function. LVEF = 55-60%. Normal RV. Normal LA and RA in size. No significant valvular abnormalities. Tele shows sinus rhythm with frequent APCs and occasional single VPCs. 6 beat NSVT noted. Abnormal ECG with evidence of requent APCs and occasional single VPCs. 6 beat NSVT noted. History of TIA, current CVA. The patient has normal cardiac function. Beta-adrienne therapy recommended: Metoprolol succinate 50 mg daily. Outpatient cardiac follow up for event monitor to rule out paroxyamal atrial fibrillation. Please do not hesitate to call us for reconsult at any time if any further ques tions or additional issue arises regarding this patient.
[2019-12-14] MEDS: INSULIN SLIDING SCALE (NOVOLOG) 1 VIAL SQ SCH ×3 (12:25→22:56)
--- NOTE | 2019-12-14 12:45 | ECHO ---
Name: LETICIA SANTIAGO Exam:Adult Echocardiogram Study Date: 12/14/2019 08:58 AM Age: 79 yrs Reason For Study: Stroke Height: 70 in Weight: 199 lb BSA: 2.1 m2 MMode/2D Measurements & Calculations IVSd: 1.1 cm Ao root diam: 3.0 cm LVIDd: 4.8 cm LA dimension: 4.0 cm LVIDs: 3.8 cm ACS: 0.60 cm LVPWd: 1.6 cm EDV(Teich): 109.0 ml LVOT diam: 2.0 cm ESV(Teich): 61.2 ml RV S Paramjit: 13.1 cm/sec Doppler Measurements & Calculations MV E max paramjit: 34.4 cm/sec Ao V2 max: 202.1 cm/sec MV A max paramjit: 80.5 cm/sec Ao max P.4 mmHg MV E/A: 0.43 Ao V2 mean: 139.2 cm/sec MV dec time: 0.12 sec Ao mean P.0 mmHg Ao V2 VTI: 40.0 cm KEN(I,D): 1.7 cm2 KEN(V,D): 1.4 cm2 LV V1 max P.2 mmHg MR max paramjit: 307.7 cm/sec LV V1 mean P.5 mmHg MR max P.9 mmHg LV V1 max: 89.0 cm/sec LV V1 mean: 58.3 cm/sec LV V1 VTI: 20.3 cm SV(LVOT): 66.5 ml TR max paramjit: 270.7 cm/sec TR max P.4 mmHg PA V2 max: 103.5 cm/sec PI end-d paramjit: 105.6 cm/sec PA max P.3 mmHg Med Peak E' Paramjit: 5.1 cm/sec Med E/e': 6.7 Lat Peak E' Paramjit: 5.5 cm/sec Lat E/e': 6.2 Procedure A complete two-dimensional transthoracic echocardiogram was performed (2D, M-mode, Doppler and color flow Doppler). Left Ventricle The left ventricular size, thickness and function are normal. The left ventricular ejection fraction is normal. Ejection Fraction = 55-60%. The left ventricular wall motion is normal. Right Ventricle The right ventricle is normal in size and function. Atria Normal left and right atrial size and function. Mitral Valve There is no mitral regurgitation noted. Tricuspid Valve There is trace tricuspid regurgitation. Right ventricular systolic pressure is normal. Aortic Valve Mild valvular aortic stenosis. No aortic regurgitation is present. Pulmonic Valve There is no pulmonic valvular regurgitation. Great Vessels The aortic root is normal size. Pericardium/Pleura There is no pericardial effusion. Interpretation Summary The left ventricular size, thickness and function are normal The right ventricle is normal in size and function. There is trace tricuspid regurgitation. Mild valvular aortic stenosis. MD Davin Acharya 12/14/2019 12:45 PM
--- NOTE | 2019-12-14 14:02 | EKG ---
Test Reason : Blood Pressure : / mmHG Vent. Rate : 084 BPM Atrial Rate : 084 BPM P-R Int : 144 ms QRS Dur : 090 ms QT Int : 380 ms P-R-T Axes : 050 022 026 degrees QTc Int : 449 ms SINUS RHYTHM WITH PREMATURE ATRIAL COMPLEXES OTHERWISE NORMAL ECG WHEN COMPARED WITH ECG OF 20-JUL-2017 12:32, PREMATURE ATRIAL COMPLEXES ARE NOW PRESENT Confirmed by MICHELLE ROD MD ([id number]) on 12/14/2019 2:01:49 PM Referred By: Confirmed By:MICHELLE ROD MD
--- NOTE | 2019-12-14 14:27 | CONS ---
DATE OF CONSULTATION: 12/14/2019 PHYSICAL MEDICINE REHABILITATION CONSULTATION REFERRING PHYSICIAN: Jackelin Funk MD HISTORY OF PRESENT ILLNESS: Patient is a 79-year-old with past medical history of diabetes, TIA, as well as right partial knee replacement and osteoarthritis of the left knee, who was admitted with left-sided weakness and numbness. Patient presented with acute onset of weakness, numbness more in the left upper than the left lower limb. On admission, the patient underwent workup, including a CT of the head, which showed no acute intracranial pathology. WBC is 5.3, hemoglobin 11.4, platelet count 194. His chemistry showed normal sodium 140, normal potassium 4.5. Elevated BUN 17.5, creatinine normal 1.1. His INR was normal at 0.93. Patient underwent neurologic evaluation, as well as an MRI of the brain, which was reviewed and showed a right lacunar infarct in the ellis radiata. Patient has noted some improvement and was evaluated by physical therapy able to ambulate with the walker and he is now seen in rehabilitation evaluation. Patient denies any change in his speech, any blurry vision, double vision, any nausea, vomiting, difficulty swallowing, difficulty chewing, any right-sided weakness or pain. REVIEW OF PAST MEDICAL AND SURGICAL HISTORY: As above, also hypertension, nephrolithiasis, diabetes, but no history of any diabetic neuropathy. He underwent right knee partial replacement, has left knee osteoarthritis. SOCIAL HISTORY: He lives with his in a private house. He has got a full steep flight of stairs to enter and more stairs within the home, but premorbidly he was independent and ambulatory without assistive device. He is able to negotiate the stairs. Former tobacco user, quit in 1193. Current function as above. REVIEW OF SYSTEMS: As above. No headache, no lightheadedness, dizziness, no blurry vision, double vision, no nausea, vomiting, difficulty swallowing, difficulty chewing, no chest pain, shortness of breath, fever, chills, no bowel or bladder incontinence. Again he is a little unsteady on his feet. Still complains of left-sided weakness more on the left upper than the left lower extremity, as well as diminished sensation. Difficulty feeding himself using the left upper limb. No weight loss, weight gain. PHYSICAL EXAMINATION: General: On examination patient is well-developed, well-nourished man who was seen sitting at the edge of the bed in no acute distress. HEENT: He is normocephalic and atraumatic. His extraocular muscles appear intact. He has no obvious facial weakness, no oral ulcers, dry mucous membrane. Tongue midline. Neck: Supple. Extremities: Without any pitting edema or calf tenderness. Skin: He has a scar over his right knee from prior surgery. No diffuse rash. Neuromuscular: He was awake, alert and oriented x3. Cranial nerves II to XII grossly intact. He has good strength and range throughout his right upper extremity and right lower extremity, all 5/5, despite moderate to advanced osteodegenerative changes in both of his hands. The left upper extremity is 3/5 proximally and 3+ to 4-/5 distally in the left upper limb. Left lower extremity is 4/5 proximally and 4+/5 distally. He has diminished sensation to pinprick, but brisk reflexes on the left compared to the right. Upgoing toe on the left compared to the right. Unable to ambulate him at this time, no assistive device, but good sitting balance. Good joint stability. He has got a little bit of crepitus in the left knee, but no medial or lateral joint line tenderness. No large joint effusion. OVERALL IMPRESSION: 1. Deficits, mobility, activities of daily living. 2. Cerebrovascular accident with left hemiparesis. 3. No evidence of dysphasia or dysarthria. No aphasia. 4. Underlying bilateral knee osteoarthritis, status post partial right knee replacement. 5. History of diabetes, but no evidence on examination of diabetic peripheral neuropathy. 6. History of hypertension. 7. Elevated risk for deep vein thrombosis due to immobility. 8. Osteoarthritis of the hands. PLAN/SUGGESTION: 1. Continue physical therapy at the bedside, bed mobility, transfers, gait training, strengthening, reconditioning, stair negotiation if able. 2. Out of bed to chair. 3. Neurologic follow up as directed. 4. DVT prophylaxis until more mobile. 5. Case management evaluation for disposition. 6. Highly recommend inpatient rehabilitation at a facility, such as [facility], where he can gain 3 to 4 hours of physical and occupational therapy. Patient would be able to tolerate this and benefit. 7. Skin percaution. 8. Bowel regimen. Monitor for constipation. 9. Will follow. Thank you for this referral. BANDAR REINA M.D. [id number]
[2019-12-14] MEDS: buPROPion HCL 100 MG TABLET PO SCH (14:37)
[2019-12-14] MEDS ORDERED: PT OWN MED DRAWER 7, Y5N ONE (22:40)
[2019-12-14] MEDS: ASPIRIN/DIPYRIDAMOLE 25 MG/200 MG CAPSULE PO SCH (22:53)
[2019-12-14] MEDS: FERROUS SO4 325 MG TABLET (FP) PO SCH (22:54)
[2019-12-14] MEDS: DULoxetine HCL 30 MG CAPSULE.DR PO SCH (22:54)
[2019-12-14] MEDS: ATORVASTATIN CA 20 MG TABLET (FP) PO SCH (22:54)
[2019-12-14] MEDS: TAMSULOSIN HCL 0.4 MG CAP PO SCH (22:54)
[2019-12-14] MEDS: INSULIN (LEVEMIR) 100 UNITS/ML UNITS SQ SCH (22:56)
[2019-12-15] MEDS: INSULIN SLIDING SCALE (NOVOLOG) 1 VIAL SQ SCH ×7 (06:23→23:23)
[2019-12-15 07:42] LABS: HEMATOCRIT 32.4 % (35.4-49); MCH 29.7 pg (25.7-33.7); MCHC 33.9 g/dl (32.0-35.9); MEAN CELL VOLUME 87.6 fl (80-96); MEAN PLT VOLUME 8.6 fl (7.5-11.1); PLATELET COUNT 185 K/MM3 (134-434); RDW 15.1 % (11.9-15.9); WHITE BLOOD COUNT 4.8 K/mm3 (4.0-10.0)
[2019-12-15 08:32] LABS: ALBUMIN 3.4 g/dl (3.4-5.0); BILIRUBIN,TOTAL 0.4 mg/dL (0.2-1); BLOOD UREA NITROGEN 17.2 mg/dL (7-18); CALCIUM 8.7 mg/dL (8.5-10.1); CREATININE 0.9 mg/dL (0.55-1.3); POTASSIUM 4.1 mmol/L (3.5-5.1); TOT PROT 5.8 g/dl (6.4-8.2)
[2019-12-15] MEDS: MULTIVITAMINS (DAILY MVI) TABLET (FP) PO SCH (11:01)
[2019-12-15] MEDS: CLOPIDOGREL BISULFATE 75 MG TABLET (FP) PO SCH (11:01)
[2019-12-15] MEDS: LOSARTAN POTASSIUM 25 MG TABLET PO SCH (11:01)
[2019-12-15] MEDS: ASPIRIN/DIPYRIDAMOLE 25 MG/200 MG CAPSULE PO SCH (11:02)
[2019-12-15] MEDS: buPROPion HCL 100 MG TABLET PO SCH (11:19)
--- NOTE | 2019-12-15 11:37 | EKG ---
Test Reason : Blood Pressure : / mmHG Vent. Rate : 072 BPM Atrial Rate : 072 BPM P-R Int : 146 ms QRS Dur : 090 ms QT Int : 396 ms P-R-T Axes : 027 021 017 degrees QTc Int : 433 ms POOR DATA QUALITY, INTERPRETATION MAY BE ADVERSELY AFFECTED SINUS RHYTHM WITH PREMATURE ATRIAL COMPLEXES OTHERWISE NORMAL ECG WHEN COMPARED WITH ECG OF 13-DEC-2019 17:10, NO SIGNIFICANT CHANGE WAS FOUND Confirmed by KAMALJIT PINEDA MD ([id number]) on 12/15/2019 11:36:51 AM Referred By: Confirmed By:KAMALJIT PINEDA MD
--- NOTE | 2019-12-15 12:34 | PN ---
Progress Note, Physician - Current Medication List Current Medications: Active Medications Atorvastatin Calcium (Lipitor -) 20 mg PO [facility] Last Admin: 12/14/19 22:54 Dose: 20 mg Documented by: Bupropion HCl (Wellbutrin -) 100 mg PO DAILY [facility] Last Admin: 12/15/19 11:19 Dose: 100 mg Documented by: Clopidogrel Bisulfate (Plavix -) 75 mg PO DAILY [facility] Last Admin: 12/15/19 11:01 Dose: 75 mg Documented by: Dipyridamole/Aspirin (Aggrenox -) 1 combo PO BID [facility] Last Admin: 12/15/19 11:02 Dose: 1 combo Documented by: Duloxetine HCl (Cymbalta -) 60 mg PO [facility] Last Admin: 12/14/19 22:54 Dose: 60 mg Documented by: Ferrous Sulfate (Feosol -) 325 mg PO [facility] Last Admin: 12/14/19 22:54 Dose: 325 mg Documented by: Insulin Aspart (Novolog Vial Sliding Scale -) 1 vial SQ [facility]; Protocol Last Admin: 12/15/19 06:23 Dose: 2 units Documented by: Insulin Detemir (Levemir Vial) 10 units SQ [facility] Last Admin: 12/14/19 22:56 Dose: 10 units Documented by: Losartan Potassium (Cozaar -) 25 mg PO DAILY [facility] Last Admin: 12/15/19 11:01 Dose: 25 mg Documented by: Multivitamins/Minerals/Vitamin C (Tab-A-Vit -) 1 tab PO DAILY [facility] Last Admin: 12/15/19 11:01 Dose: 1 tab Documented by: Sitagliptin Phosphate (Januvia -) 100 mg PO AM [facility] Last Admin: 12/15/19 06:22 Dose: 100 mg Documented by: Tamsulosin HCl (Flomax -) 0.4 mg PO [facility] Last Admin: 12/14/19 22:54 Dose: 0.4 mg Documented by: - Objective Vital Signs: Vital Signs Temperature 98.2 F 12/15/19 08:30 Pulse Rate 80 12/15/19 08:30 Respiratory Rate 20 12/15/19 08:30 Blood Pressure 150/83 12/15/19 08:30 O2 Sat by Pulse Oximetry (%) 96 12/15/19 08:30 Labs: CBC, BMP 12/15/19 05:28 12/15/19 05:28 INR, PTT INR 0.91 (0.83-1.09) 12/13/19 16:50 Problem List - Problems (1) Lacunar infarct, acute Code(s): I63.81 - OTHER CEREB INFRC DUE TO OCCLS OR STENOSIS OF SMALL ARTERY (2) Old cerebrovascular accident (CVA) without late effect Code(s): Z86.73 - PRSNL HX OF TIA (TIA), AND CEREB INFRC W/O RESID DEFICITS (3) Anemia Code(s): D64.9 - ANEMIA, UNSPECIFIED (4) Diabetes mellitus Code(s): E11.9 - TYPE 2 DIABETES MELLITUS WITHOUT COMPLICATIONS (5) Hypertension Code(s): I10 - ESSENTIAL (PRIMARY) HYPERTENSION (6) Left-sided weakness Code(s): R53.1 - WEAKNESS (7) Transient ischemic attack Code(s): G45.9 - TRANSIENT CEREBRAL ISCHEMIC ATTACK, UNSPECIFIED (8) Head injury Code(s): S09.90XA - UNSPECIFIED INJURY OF HEAD, INITIAL ENCOUNTER Qualifiers: Encounter type: initial encounter Qualified Code(s): S09.90XA - Unspecified injury of head, initial encounter
--- NOTE | 2019-12-15 14:43 | DS ---
Physical Examination Vital Signs: Vital Signs Temperature 97.6 F 12/15/19 14:00 Pulse Rate 83 12/15/19 14:00 Respiratory Rate 20 12/15/19 14:00 Blood Pressure 146/72 12/15/19 14:00 O2 Sat by Pulse Oximetry (%) 96 12/15/19 08:30 Findings/Remarks: C/O LEFT SIDED DYSARTHRIA Constitutional: Yes: Mild Distress Eyes: Yes: WNL HENT: Yes: WNL Neck: Yes: WNL Cardiovascular: Yes: Regular Rate and Rhythm Respiratory: Yes: WNL Gastrointestinal: Yes: WNL Renal/: Yes: WNL Musculoskeletal: Yes: Muscle Weakness (LUE) Integumentary: Yes: WNL Wound/Incision: Yes: Clean/Dry Neurological: Yes: Dysarthria, Unsteady Gait, Weakness ...Motor Strength: LUE Psychiatric: Yes: Other Labs: CBC, BMP 12/15/19 05:28 12/15/19 05:28 Discharge Summary Problems reviewed: Yes Reason For Visit: DIABETES MELLITUS Current Active Problems Anemia (Acute) Diabetes mellitus (Acute) Hypertension (Acute) Lacunar infarct, acute (Acute) Left-sided weakness (Acute) Old cerebrovascular accident (CVA) without late effect (Acute) Transient ischemic attack (Acute) Procedures: Principal: MRI BRAIN Hospital Course: ADMITTED WITH WEAKNESS, DYSARTHRIA, ATAXIA WEAKNESS ACUTE LACUNAR INFARCT, LABS REVIEWED WILL NEED TO KEEP LDL <70, BP CONTROLLED ALONG WITH A1C. Goals: [facility] FOR PT/OT Condition: Good - Instructions Diet, Activity, Other Instructions: KEEP LDL <70, A1C AND BLOOD PRESSURE CONTROLLED SEE DR FUNK AFTER BRAUN REHAB STAY Referrals: Jackelin Funk MD [Primary Care Provider] - Disposition: [facility] - Home Medications Comprehensive Discharge Medication List: Ambulatory Orders Aspirin 81 mg PO DAILY 02/22/12 Aspirin/Dipyridamole [Aggrenox -] 1 combo PO BID 05/16/12 Atorvastatin Ca [Lipitor] 20 mg PO HS #0 tab 07/21/17 Sitagliptin Phosphate [Januvia] 100 mg PO DAILY #0 tab 07/21/17 Tamsulosin HCl 0.4 mg PO HS #0 cap 07/21/17 Bupropion HCl 100 mg PO DAILY 12/22/18 Duloxetine HCl [Cymbalta] 60 mg PO HS 12/22/18 Ferrous Sulfate 325 mg PO HS 12/22/18 Insulin (Levemir) [Levemir Vial] 5 units SQ HS 12/22/18 Insulin Aspart (Niacinamide) [Fiasp 100 Unit/ml Flextouch] 7 unit SQ ACDIN 12/22/18 Losartan Potassium 25 mg PO DAILY 12/22/18 Multivitamins [Multivit ([facility] Formulary)] 1 tab PO DAILY 12/22/18 Pioglitazone HCl/Metformin HCl [Actoplus Met 15 mg-850 mg Tab] 1 each PO BID 03/09/19 Oxycodone HCl/Acetaminophen [Percocet 5-325 mg Tablet] 1 - 2 tab PO Q6H #30 tab MDD 6 03/14/19
--- NOTE | 2019-12-15 18:07 | PN ---
Progress Note, Physician History of Present Illness: events noted chart review patient seen on the floor feels better patient on is on a combination of the Aggrenox and Plavix tolerating the medication very well report of the MRI was noted. Now with more slurred speech - Current Medication List Current Medications: Active Medications Atorvastatin Calcium (Lipitor -) 20 mg PO [facility] Last Admin: 12/14/19 22:54 Dose: 20 mg Documented by: Bupropion HCl (Wellbutrin -) 100 mg PO DAILY [facility] Last Admin: 12/15/19 11:19 Dose: 100 mg Documented by: Clopidogrel Bisulfate (Plavix -) 75 mg PO DAILY [facility] Last Admin: 12/15/19 11:01 Dose: 75 mg Documented by: Dipyridamole/Aspirin (Aggrenox -) 1 combo PO BID [facility] Last Admin: 12/15/19 11:02 Dose: 1 combo Documented by: Duloxetine HCl (Cymbalta -) 60 mg PO [facility] Last Admin: 12/14/19 22:54 Dose: 60 mg Documented by: Ferrous Sulfate (Feosol -) 325 mg PO [facility] Last Admin: 12/14/19 22:54 Dose: 325 mg Documented by: Insulin Aspart (Novolog Vial Sliding Scale -) 1 vial SQ [facility]; Protocol Last Admin: 12/15/19 06:23 Dose: 2 units Documented by: Insulin Detemir (Levemir Vial) 10 units SQ [facility] Last Admin: 12/14/19 22:56 Dose: 10 units Documented by: Losartan Potassium (Cozaar -) 25 mg PO DAILY [facility] Last Admin: 12/15/19 11:01 Dose: 25 mg Documented by: Multivitamins/Minerals/Vitamin C (Tab-A-Vit -) 1 tab PO DAILY [facility] Last Admin: 12/15/19 11:01 Dose: 1 tab Documented by: Sitagliptin Phosphate (Januvia -) 100 mg PO AM [facility] Last Admin: 12/15/19 06:22 Dose: 100 mg Documented by: Tamsulosin HCl (Flomax -) 0.4 mg PO [facility] Last Admin: 12/14/19 22:54 Dose: 0.4 mg Documented by: - Objective Vital Signs: Vital Signs Temperature 97.6 F 12/15/19 14:00 Pulse Rate 83 12/15/19 14:00 Respiratory Rate 20 12/15/19 14:00 Blood Pressure 146/72 12/15/19 14:00 O2 Sat by Pulse Oximetry (%) 96 12/15/19 08:30 Constitutional: Yes: Well Nourished Eyes: Yes: WNL HENT: Yes: WNL Neurological: Yes: Alert, Babinski negative ...Motor Strength: WNL Labs: CBC, BMP 12/15/19 05:28 12/15/19 05:28 INR, PTT INR 0.91 (0.83-1.09) 12/13/19 16:50 Problem List - Problems (1) Left-sided weakness Code(s): R53.1 - WEAKNESS Assessment/Plan Stat Head CT now tight blood sugar control. Type cholesterol control. Stop the aspirin. Physical therapy. [place]-3 and fish oil. Continue Aggrenox and Plavix Arrangements for TCD as an outpatient.
[2019-12-15] MEDS: DULoxetine HCL 30 MG CAPSULE.DR PO SCH (21:28)
[2019-12-15] MEDS: TAMSULOSIN HCL 0.4 MG CAP PO SCH (21:28)
[2019-12-15] MEDS: FERROUS SO4 325 MG TABLET (FP) PO SCH (21:28)
[2019-12-15] MEDS: ATORVASTATIN CA 20 MG TABLET (FP) PO SCH (21:28)
[2019-12-15] MEDS ORDERED: PT OWN MED DRAWER 7, Y5N ONE (22:59)
[2019-12-15] MEDS: INSULIN (LEVEMIR) 100 UNITS/ML UNITS SQ SCH (23:21)
[2019-12-16] MEDS: ASPIRIN/DIPYRIDAMOLE 25 MG/200 MG CAPSULE PO SCH ×3 (00:35→21:07)
[2019-12-16] MEDS ORDERED: INSULIN (NOVOLOG) ASPART 100 UNITS/ML 10ML VIAL ONE (06:56)
[2019-12-16] MEDS: INSULIN SLIDING SCALE (NOVOLOG) 1 VIAL SQ SCH ×4 (06:58→22:32)
[2019-12-16] MEDS: buPROPion HCL 100 MG TABLET PO SCH (09:17)
[2019-12-16] MEDS: LOSARTAN POTASSIUM 25 MG TABLET PO SCH (09:18)
[2019-12-16] MEDS: CLOPIDOGREL BISULFATE 75 MG TABLET (FP) PO SCH (09:18)
[2019-12-16] MEDS: MULTIVITAMINS (DAILY MVI) TABLET (FP) PO SCH (09:19)
--- NOTE | 2019-12-16 09:32 | PN ---
Progress Note, Physician - Current Medication List Current Medications: Active Medications Atorvastatin Calcium (Lipitor -) 20 mg PO [facility] Last Admin: 12/15/19 21:28 Dose: 20 mg Documented by: Bupropion HCl (Wellbutrin -) 100 mg PO DAILY [facility] Last Admin: 12/16/19 09:17 Dose: 100 mg Documented by: Clopidogrel Bisulfate (Plavix -) 75 mg PO DAILY [facility] Last Admin: 12/16/19 09:18 Dose: 75 mg Documented by: Dipyridamole/Aspirin (Aggrenox -) 1 combo PO BID [facility] Last Admin: 12/16/19 09:17 Dose: 1 combo Documented by: Duloxetine HCl (Cymbalta -) 60 mg PO [facility] Last Admin: 12/15/19 21:28 Dose: 60 mg Documented by: Ferrous Sulfate (Feosol -) 325 mg PO [facility] Last Admin: 12/15/19 21:28 Dose: 325 mg Documented by: Insulin Aspart (Novolog Vial Sliding Scale -) 1 vial SQ [facility]; Protocol Last Admin: 12/16/19 06:58 Dose: 7 units Documented by: Insulin Detemir (Levemir Vial) 10 units SQ [facility] Last Admin: 12/15/19 23:21 Dose: 10 units Documented by: Losartan Potassium (Cozaar -) 25 mg PO DAILY [facility] Last Admin: 12/16/19 09:18 Dose: 25 mg Documented by: Multivitamins/Minerals/Vitamin C (Tab-A-Vit -) 1 tab PO DAILY [facility] Last Admin: 12/16/19 09:19 Dose: 1 tab Documented by: Sitagliptin Phosphate (Januvia -) 100 mg PO AM [facility] Last Admin: 12/16/19 06:58 Dose: 100 mg Documented by: Tamsulosin HCl (Flomax -) 0.4 mg PO [facility] Last Admin: 12/15/19 21:28 Dose: 0.4 mg Documented by: - Objective Vital Signs: Vital Signs Temperature 97 F L 12/16/19 05:57 Pulse Rate 82 12/16/19 05:57 Respiratory Rate 18 12/16/19 05:57 Blood Pressure 142/65 12/16/19 05:57 O2 Sat by Pulse Oximetry (%) 96 12/15/19 21:00 Cardiovascular: Yes: S1, S2 Respiratory: Yes: Regular, CTA Bilaterally Gastrointestinal: Yes: Normal Bowel Sounds, Soft Neurological: Yes: Alert, Oriented Labs: CBC, BMP 12/15/19 05:28 12/15/19 05:28 INR, PTT INR 0.91 (0.83-1.09) 12/13/19 16:50 Problem List - Problems (1) Lacunar infarct, acute Assessment/Plan: ON STATIN LIPITOR 40 ON ASA PT--BRAUN Code(s): I63.81 - OTHER CEREB INFRC DUE TO OCCLS OR STENOSIS OF SMALL ARTERY (2) Diabetes mellitus Assessment/Plan: BGM INSULIN SS Code(s): E11.9 - TYPE 2 DIABETES MELLITUS WITHOUT COMPLICATIONS (3) Hypertension Assessment/Plan: CONTROLLED Code(s): I10 - ESSENTIAL (PRIMARY) HYPERTENSION
[2019-12-16] MEDS: ATORVASTATIN CA 40 MG TABLET (FP) PO SCH (21:06)
[2019-12-16] MEDS: TAMSULOSIN HCL 0.4 MG CAP PO SCH (21:06)
[2019-12-16] MEDS: FERROUS SO4 325 MG TABLET (FP) PO SCH (21:06)
[2019-12-16] MEDS: DULoxetine HCL 30 MG CAPSULE.DR PO SCH (21:06)
--- NOTE | 2019-12-16 21:44 | PN ---
Progress Note (short form) - Note Progress Note: Reviewed the Ct results The Right MCA stroke is larger on asael CT Will DC Aggrenox Continue asael Plavix and Full ASA Acute REhab Problem List - Problems (1) Left-sided weakness Code(s): R53.1 - WEAKNESS
[2019-12-16] MEDS: INSULIN (LEVEMIR) 100 UNITS/ML UNITS SQ SCH (22:32)
[2019-12-17] MEDS: INSULIN SLIDING SCALE (NOVOLOG) 1 VIAL SQ SCH ×4 (06:33→21:26)
[2019-12-17] MEDS ORDERED: INSULIN (NOVOLOG) ASPART 100 UNITS/ML 10ML VIAL ONE (06:56)
[2019-12-17] MEDS ORDERED: PT OWN MED DRAWER 7, Y5N ONE (09:24)
[2019-12-17] MEDS: MULTIVITAMINS (DAILY MVI) TABLET (FP) PO SCH (10:42)
[2019-12-17] MEDS: ASPIRIN 325 MG TABLET PO SCH (10:42)
[2019-12-17] MEDS: buPROPion HCL 100 MG TABLET PO SCH (10:42)
[2019-12-17] MEDS: CLOPIDOGREL BISULFATE 75 MG TABLET (FP) PO SCH (10:42)
[2019-12-17] MEDS: LOSARTAN POTASSIUM 25 MG TABLET PO SCH (10:42)
--- NOTE | 2019-12-17 11:13 | PN ---
Progress Note, Physician - Current Medication List Current Medications: Active Medications Aspirin (Asa -) 325 mg PO DAILY [facility] Last Admin: 12/17/19 10:42 Dose: 325 mg Documented by: Atorvastatin Calcium (Lipitor -) 40 mg PO [facility] Last Admin: 12/16/19 21:06 Dose: 40 mg Documented by: Bupropion HCl (Wellbutrin -) 100 mg PO DAILY [facility] Last Admin: 12/17/19 10:42 Dose: 100 mg Documented by: Clopidogrel Bisulfate (Plavix -) 75 mg PO DAILY [facility] Last Admin: 12/17/19 10:42 Dose: 75 mg Documented by: Duloxetine HCl (Cymbalta -) 60 mg PO [facility] Last Admin: 12/16/19 21:06 Dose: 60 mg Documented by: Ferrous Sulfate (Feosol -) 325 mg PO [facility] Last Admin: 12/16/19 21:06 Dose: 325 mg Documented by: Insulin Aspart (Novolog Vial Sliding Scale -) 1 vial SQ [facility]; Protocol Last Admin: 12/17/19 06:33 Dose: Not Given Documented by: Insulin Detemir (Levemir Vial) 10 units SQ [facility] Last Admin: 12/16/19 22:32 Dose: 10 units Documented by: Losartan Potassium (Cozaar -) 25 mg PO DAILY [facility] Last Admin: 12/17/19 10:42 Dose: 25 mg Documented by: Multivitamins/Minerals/Vitamin C (Tab-A-Vit -) 1 tab PO DAILY [facility] Last Admin: 12/17/19 10:42 Dose: 1 tab Documented by: Sitagliptin Phosphate (Januvia -) 100 mg PO AM [facility] Last Admin: 12/17/19 07:00 Dose: 100 mg Documented by: Tamsulosin HCl (Flomax -) 0.4 mg PO [facility] Last Admin: 12/16/19 21:06 Dose: 0.4 mg Documented by: - Objective Vital Signs: Vital Signs Temperature 97.6 F 12/17/19 10:41 Pulse Rate 76 12/17/19 10:41 Respiratory Rate 16 12/17/19 10:41 Blood Pressure 142/70 12/17/19 10:41 O2 Sat by Pulse Oximetry (%) 98 12/16/19 20:42 Cardiovascular: Yes: S1, S2 Respiratory: Yes: Regular, CTA Bilaterally Gastrointestinal: Yes: Normal Bowel Sounds, Soft Labs: CBC, BMP 12/15/19 05:28 12/15/19 05:28 INR, PTT INR 0.91 (0.83-1.09) 12/13/19 16:50 Problem List - Problems (1) Lacunar infarct, acute Assessment/Plan: ON STATIN LIPITOR 40 ON ASA PT--APARNA Code(s): I63.81 - OTHER CEREB INFRC DUE TO OCCLS OR STENOSIS OF SMALL ARTERY (2) Diabetes mellitus Assessment/Plan: BGM INSULIN SS Code(s): E11.9 - TYPE 2 DIABETES MELLITUS WITHOUT COMPLICATIONS (3) Hypertension Assessment/Plan: CONTROLLED Code(s): I10 - ESSENTIAL (PRIMARY) HYPERTENSION
--- NOTE | 2019-12-17 15:00 | PN ---
Progress Note, Physician History of Present Illness: events noted Out of bed to chair No difficulty swallowing Follows command normally Case discussed fully for 40 minutes with the - Current Medication List Current Medications: Active Medications Aspirin (Asa -) 325 mg PO DAILY [facility] Last Admin: 12/17/19 10:42 Dose: 325 mg Documented by: Atorvastatin Calcium (Lipitor -) 40 mg PO [facility] Last Admin: 12/16/19 21:06 Dose: 40 mg Documented by: Bupropion HCl (Wellbutrin -) 100 mg PO DAILY [facility] Last Admin: 12/17/19 10:42 Dose: 100 mg Documented by: Clopidogrel Bisulfate (Plavix -) 75 mg PO DAILY [facility] Last Admin: 12/17/19 10:42 Dose: 75 mg Documented by: Duloxetine HCl (Cymbalta -) 60 mg PO [facility] Last Admin: 12/16/19 21:06 Dose: 60 mg Documented by: Ferrous Sulfate (Feosol -) 325 mg PO [facility] Last Admin: 12/16/19 21:06 Dose: 325 mg Documented by: Insulin Aspart (Novolog Vial Sliding Scale -) 1 vial SQ [facility]; Protocol Last Admin: 12/17/19 12:14 Dose: 4 units Documented by: Insulin Detemir (Levemir Vial) 10 units SQ [facility] Last Admin: 12/16/19 22:32 Dose: 10 units Documented by: Losartan Potassium (Cozaar -) 25 mg PO DAILY [facility] Last Admin: 12/17/19 10:42 Dose: 25 mg Documented by: Multivitamins/Minerals/Vitamin C (Tab-A-Vit -) 1 tab PO DAILY [facility] Last Admin: 12/17/19 10:42 Dose: 1 tab Documented by: Sitagliptin Phosphate (Januvia -) 100 mg PO AM [facility] Last Admin: 12/17/19 07:00 Dose: 100 mg Documented by: Tamsulosin HCl (Flomax -) 0.4 mg PO [facility] Last Admin: 12/16/19 21:06 Dose: 0.4 mg Documented by: - Objective Vital Signs: Vital Signs Temperature 97.9 F 12/17/19 14:00 Pulse Rate 87 12/17/19 14:00 Respiratory Rate 20 12/17/19 14:00 Blood Pressure 135/94 12/17/19 14:00 O2 Sat by Pulse Oximetry (%) 98 12/17/19 09:00 Constitutional: Yes: Well Nourished Eyes: Yes: WNL Neurological: Yes: Alert, Oriented, Babinski positive ...Motor Strength: WNL Labs: CBC, BMP 12/15/19 05:28 12/15/19 05:28 INR, PTT INR 0.91 (0.83-1.09) 12/13/19 16:50 Problem List - Problems (1) Left-sided weakness Code(s): R53.1 - WEAKNESS Assessment/Plan 1. Continue the full aspirin. 2. Continue Plavix. 3. Acute rehabilitation. 4. Fall precautions
[2019-12-17] MEDS: FERROUS SO4 325 MG TABLET (FP) PO SCH (21:24)
[2019-12-17] MEDS: DULoxetine HCL 30 MG CAPSULE.DR PO SCH (21:24)
[2019-12-17] MEDS: TAMSULOSIN HCL 0.4 MG CAP PO SCH (21:24)
[2019-12-17] MEDS: ATORVASTATIN CA 40 MG TABLET (FP) PO SCH (21:25)
[2019-12-17] MEDS: INSULIN (LEVEMIR) 100 UNITS/ML UNITS SQ SCH (21:26)
[2019-12-18] MEDS: INSULIN SLIDING SCALE (NOVOLOG) 1 VIAL SQ SCH ×2 (06:31→12:04)
[2019-12-18] MEDS: CLOPIDOGREL BISULFATE 75 MG TABLET (FP) PO SCH (09:02)
[2019-12-18] MEDS: ASPIRIN 325 MG TABLET PO SCH (09:02)
[2019-12-18] MEDS: MULTIVITAMINS (DAILY MVI) TABLET (FP) PO SCH (09:02)
[2019-12-18] MEDS: LOSARTAN POTASSIUM 25 MG TABLET PO SCH (09:02)
[2019-12-18] MEDS: buPROPion HCL 100 MG TABLET PO SCH (09:07)
--- NOTE | 2019-12-18 11:12 | PN ---
Progress Note, [employer]LINE [employer]ET[employer]GER - Note Progress Note: Reportedly speech was more slurred on 12/14. Repeat CT head 12/14 noted, with increased infarct. Tolerating reg diet/thin liquids. Selected Entries 12/17/19 12/17/19 12/17/19 03:00 05:44 10:37 Breakfast 100% Supper Temperature 97.4 F L 98.2 F 12/17/19 12/17/19 12/17/19 10:41 14:00 18:00 Breakfast Supper 100% Temperature 97.6 F 97.9 F 97.7 F 12/17/19 12/18/19 12/18/19 22:00 01:11 06:00 Breakfast Supper Temperature 97.5 F L 97.8 F 98.3 F 12/18/19 12/18/19 08:24 09:51 Breakfast 100% Supper Temperature 98.5 F Speech sounds unchanged to me, maybe linqual phonemes slightlt less precise and slower. Tongue exercises given for strength and VOM, with good carryover.
[2019-12-18 15:17] VITALS: BP 135/65; PULSE 80; TEMP 98.7
--- NOTE | 2019-12-18 15:49 | PN ---
Progress Note (short form) - Note Progress Note: PATIENT SEEN AND EXAMIEND FORMS COMPLETED DISCHARGING TO [facility] FOR SN[facility] Problem List - Problems (1) Lacunar infarct, acute Code(s): I63.81 - OTHER CEREB INFRC DUE TO OCCLS OR STENOSIS OF SMALL ARTERY (2) Old cerebrovascular accident (CVA) without late effect Code(s): Z86.73 - PRSNL HX OF TIA (TIA), AND CEREB INFRC W/O RESID DEFICITS (3) Anemia Code(s): D64.9 - ANEMIA, UNSPECIFIED (4) Diabetes mellitus Code(s): E11.9 - TYPE 2 DIABETES MELLITUS WITHOUT COMPLICATIONS (5) Hypertension Code(s): I10 - ESSENTIAL (PRIMARY) HYPERTENSION (6) Left-sided weakness Code(s): R53.1 - WEAKNESS (7) Transient ischemic attack Code(s): G45.9 - TRANSIENT CEREBRAL ISCHEMIC ATTACK, UNSPECIFIED (8) Head injury Code(s): S09.90XA - UNSPECIFIED INJURY OF HEAD, INITIAL ENCOUNTER Qualifiers: Encounter type: initial encounter Qualified Code(s): S09.90XA - Unspecified injury of head, initial encounter
== END 2019-12-18 17:14 | DRG 65 ==
LOC: JER 16:33 → JERBED 17:16 → J4W 22:29
PROVIDERS: ADMIT Internal Medicine; ATTEND Family Medicine
DX: I63.9 Cerebral infarction, unspecified (principal); G81.94 Hemiplegia, unspecified affecting left nondominant side; R29.701 NIHSS score 1; E11.9 Type 2 diabetes mellitus without complications; N40.0 Benign prostatic hyperplasia without lower urinary tract symptoms; D64.9 Anemia, unspecified; I48.0 Paroxysmal atrial fibrillation; I25.10 Atherosclerotic heart disease of native coronary artery without angina pectoris; R53.1 Weakness; W18.39XA Other fall on same level, initial encounter; Y92.238 Other place in hospital as the place of occurrence of the external cause; I69.393 Ataxia following cerebral infarction
CPT/HCPCS: 36415; 70450-TC; 70551-TC; 71045-TC-FY; 80053; 80061; 82550; 82962; 83721; 83735; 84100; 84439; 84443; 84484; 85025; 85027; 85610; 85730; 86800; 86850; 86900; 86901; 93005; 93010; 93306-TC; 93880-TC; 97116-GP; 97161-GP; 99285-25

== ENCOUNTER 2021-01-14 06:00 | Inpatient (IN) | payer OTHER ==
[2021-01-07 11:45] VITALS: BMI 28.1
[2021-01-14] MEDS ORDERED: TRANEXAMIC ACID 1000 MG/10 ML VIAL IVPUSH ONE (06:37)
[2021-01-14] MEDS ORDERED: CEFAZOLIN 2 GM in DEXTROSE 5%-WATER - 50 ML IVPB ONE (06:37)
[2021-01-14] MEDS ORDERED: CELECOXIB 200 MG CAPSULE PO ONE (06:37)
[2021-01-14] MEDS ORDERED: CELECOXIB 200 MG CAPSULE ONE (06:51)
[2021-01-14] MEDS ORDERED: VANCOMYCIN 1,000 MG VIAL (RESTRICTED TO ID ONLY) ONE (07:14)
[2021-01-14] MEDS ORDERED: ceFAZolin SODIUM 1 GM VIAL ONE (07:14)
[2021-01-14] MEDS ORDERED: MIDAZOLAM HCL 2 MG/2 ML SINGLE DOSE VIAL ONE (07:37)
[2021-01-14] MEDS ORDERED: BUPIVACAINE LIPOSOME/PF (EXPAREL) 266 MG/20 ML VIAL ONE (07:37)
[2021-01-14] MEDS ORDERED: SODIUM CHLORIDE 0.9% P/F 10 ML VIAL IJ ONE (07:37)
[2021-01-14] MEDS ORDERED: MAG HYDROX/AL HYDROX/SIMETH 30 ML UNIT-DOSE CUP PO PRN (07:58)
[2021-01-14] MEDS ORDERED: ONDANSETRON 4 MG/2 ML VIAL IVPUSH PRN (07:58)
[2021-01-14] MEDS ORDERED: MAGNESIUM HYDROX 2400MG/30ML ORAL SUSPENSION 30 ML CUP PO PRN (07:58)
[2021-01-14] MEDS ORDERED: LACTATED RINGERS SOLUTION 1,000 ML IV SCH (08:00)
[2021-01-14] MEDS ORDERED: PROPOFOL 20 ML ONE (08:29)
[2021-01-14] MEDS ORDERED: VANCOMYCIN 1,000 MG VIAL (RESTRICTED TO ID ONLY) IVPB ONE (09:28)
[2021-01-14] MEDS ORDERED: MULTIVITAMINS (DAILY MVI) TABLET (FP) PO SCH (10:00)
[2021-01-14] MEDS ORDERED: PANTOPRAZOLE 40 MG TABLET PO SCH (10:00)
[2021-01-14] MEDS: oxyCODONE HCL 5 MG TABLET PO PRN ×2 (13:29→16:35)
[2021-01-14] MEDS: INSULIN (NOVOLOG) ASPART 100 UNITS/ML 10ML VIAL SQ SCH (16:30)
[2021-01-14] MEDS: CEFAZOLIN 2 GM/D5W 2 GM/50 ML ML IVPB SCH ×2 (16:35→23:27)
[2021-01-14] MEDS ORDERED: PT OWN MED DRAWER 7, Y5N ONE (18:23)
[2021-01-14] MEDS: PIOGLITAZONE HCL 15 MG TABLET PO SCH (18:25)
[2021-01-14] MEDS ORDERED: amLODIPine BESYLATE 5 MG TABLET (FP) PO ONE (19:30)
[2021-01-14] MEDS: SENNOSIDES/DOCUSATE COMBO (SENNA PLUS) TABLET (UD) PO SCH (21:24)
[2021-01-14] MEDS: DULoxetine HCL 30 MG CAPSULE.DR PO SCH (21:24)
[2021-01-14] MEDS: INSULIN (LEVEMIR) 100 UNITS/ML UNITS SQ SCH (21:25)
[2021-01-14] MEDS: FERROUS SO4 325 MG TABLET (FP) PO SCH (21:25)
[2021-01-14] MEDS: TAMSULOSIN HCL 0.4 MG CAP PO SCH (21:25)
[2021-01-14] MEDS: ATORVASTATIN CA 40 MG TABLET (FP) PO SCH (21:27)
[2021-01-14] MEDS: FAMOTIDINE 20 MG TABLET PO SCH (21:33)
[2021-01-15] MEDS: sitaGLIPtin PHOSPHATE 50 MG TABLET PO SCH (06:28)
[2021-01-15] MEDS: PIOGLITAZONE HCL 15 MG TABLET PO SCH ×2 (06:28→16:58)
[2021-01-15] MEDS: oxyCODONE HCL 5 MG TABLET PO PRN ×2 (06:28→21:23)
[2021-01-15 08:22] LABS: HEMATOCRIT 32.3 % (35.4-49); HEMOGLOBIN 10.9 GM/dl (11.7-16.9); MCH 29.1 pg (25.7-33.7); MCHC 33.7 g/dl (32.0-35.9); MEAN CELL VOLUME 86.4 fl (80-96); MEAN PLT VOLUME 8.1 fl (7.5-11.1); PLATELET COUNT 188 K/MM3 (134-434); RBC 3.74 M/mm3 (4.00-5.60); RDW 14.5 % (11.9-15.9); WHITE BLOOD COUNT 8.1 K/mm3 (4.0-10.8)
[2021-01-15] MEDS: MULTIVITAMINS (DAILY MVI) TABLET (FP) PO SCH ×2 (10:42→10:43)
[2021-01-15] MEDS: ASPIRIN 325 MG TABLET PO SCH (10:42)
[2021-01-15] MEDS: FAMOTIDINE 20 MG TABLET PO SCH ×2 (10:42→21:23)
[2021-01-15] MEDS: SENNOSIDES/DOCUSATE COMBO (SENNA PLUS) TABLET (UD) PO SCH ×3 (10:42→21:23)
[2021-01-15] MEDS: CLOPIDOGREL BISULFATE 75 MG TABLET (FP) PO SCH (10:43)
[2021-01-15] MEDS: buPROPion HCL 100 MG TABLET PO SCH (10:43)
[2021-01-15] MEDS: INSULIN (NOVOLOG) ASPART 100 UNITS/ML 10ML VIAL SQ SCH (16:30)
[2021-01-15] MEDS: DULoxetine HCL 30 MG CAPSULE.DR PO SCH (21:22)
[2021-01-15] MEDS: TAMSULOSIN HCL 0.4 MG CAP PO SCH (21:22)
[2021-01-15] MEDS: FERROUS SO4 325 MG TABLET (FP) PO SCH (21:22)
[2021-01-15] MEDS: INSULIN (LEVEMIR) 100 UNITS/ML UNITS SQ SCH (21:22)
[2021-01-15] MEDS: ATORVASTATIN CA 40 MG TABLET (FP) PO SCH (21:23)
[2021-01-16] MEDS: sitaGLIPtin PHOSPHATE 50 MG TABLET PO SCH (06:44)
[2021-01-16] MEDS: PIOGLITAZONE HCL 15 MG TABLET PO SCH ×2 (06:44→16:58)
[2021-01-16 08:25] LABS: HEMATOCRIT 28.6 % (35.4-49); HEMOGLOBIN 9.8 GM/dl (11.7-16.9); MCH 29.7 pg (25.7-33.7); MCHC 34.2 g/dl (32.0-35.9); MEAN CELL VOLUME 86.8 fl (80-96); MEAN PLT VOLUME 8.5 fl (7.5-11.1); PLATELET COUNT 163 K/MM3 (134-434); RDW 14.9 % (11.9-15.9); WHITE BLOOD COUNT 9.2 K/mm3 (4.0-10.8)
[2021-01-16 08:30] LABS: CALCIUM 8.7 mg/dl (8.5-10); CREATININE 0.9 mg/dl (0.55-1.3); MAGNESIUM 1.6 mg/dL (1.8-2.4); POTASSIUM 3.9 mmol/L (3.5-5.1)
[2021-01-16 09:38] LABS: IRON SERUM 13 ug/dL (50-175); TOTAL IRON BINDING CAPACITY 271 ug/dL (250-450)
[2021-01-16] MEDS: oxyCODONE HCL 5 MG TABLET PO PRN ×2 (10:01→21:11)
[2021-01-16] MEDS: ASPIRIN 325 MG TABLET PO SCH (10:01)
[2021-01-16] MEDS: FAMOTIDINE 20 MG TABLET PO SCH ×2 (10:02→21:10)
[2021-01-16] MEDS: CLOPIDOGREL BISULFATE 75 MG TABLET (FP) PO SCH (10:03)
[2021-01-16] MEDS: buPROPion HCL 100 MG TABLET PO SCH (10:03)
[2021-01-16] MEDS: SENNOSIDES/DOCUSATE COMBO (SENNA PLUS) TABLET (UD) PO SCH ×2 (10:03→21:10)
[2021-01-16] MEDS: MULTIVITAMINS (DAILY MVI) TABLET (FP) PO SCH (10:03)
[2021-01-16] MEDS ORDERED: MAGNESIUM SULF 50% (8.12 MEQ/2 ML-1 GM VIAL) IVPB ONE (10:05)
[2021-01-16] MEDS ORDERED: FERRIC CARBOXYMALTOSE 750 MG/15 ML VIAL IVPB ONE (10:30)
[2021-01-16] MEDS ORDERED: MAGNESIUM 1GM/D5W - 1 GM/100 ML IVPB IVPB ONE (10:30)
[2021-01-16] MEDS ORDERED: FERRIC CARBOXYMALTOSE 750 MG in SODIUM CHLORIDE 250 ML IVPB ONE (12:00)
[2021-01-16] MEDS ORDERED: INSULIN SLIDING SCALE (NOVOLOG) 1 VIAL SQ ONE (15:31)
[2021-01-16] MEDS: INSULIN (NOVOLOG) ASPART 100 UNITS/ML 10ML VIAL SQ SCH (16:58)
[2021-01-16] MEDS: DULoxetine HCL 30 MG CAPSULE.DR PO SCH (21:09)
[2021-01-16] MEDS: TAMSULOSIN HCL 0.4 MG CAP PO SCH (21:10)
[2021-01-16] MEDS: ATORVASTATIN CA 40 MG TABLET (FP) PO SCH (21:10)
[2021-01-16] MEDS: FERROUS SO4 325 MG TABLET (FP) PO SCH (21:10)
[2021-01-16] MEDS: INSULIN (LEVEMIR) 100 UNITS/ML UNITS SQ SCH (21:12)
[2021-01-17] MEDS: PIOGLITAZONE HCL 15 MG TABLET PO SCH (06:15)
[2021-01-17] MEDS: sitaGLIPtin PHOSPHATE 50 MG TABLET PO SCH (06:16)
[2021-01-17] MEDS: oxyCODONE HCL 5 MG TABLET PO PRN (08:37)
[2021-01-17] MEDS: CLOPIDOGREL BISULFATE 75 MG TABLET (FP) PO SCH (08:37)
[2021-01-17] MEDS: ASPIRIN 325 MG TABLET PO SCH (08:37)
[2021-01-17] MEDS: SENNOSIDES/DOCUSATE COMBO (SENNA PLUS) TABLET (UD) PO SCH (09:50)
[2021-01-17] MEDS: FAMOTIDINE 20 MG TABLET PO SCH (09:51)
[2021-01-17] MEDS: buPROPion HCL 100 MG TABLET PO SCH (09:51)
[2021-01-17] MEDS: MULTIVITAMINS (DAILY MVI) TABLET (FP) PO SCH (09:51)
[2021-01-17 14:02] VITALS: BP 140/62; PULSE 83; TEMP 97.9
== END 2021-01-17 14:05 | disposition home health service (06) | DRG 470 ==
LOC: FM/S 06:00
PROVIDERS: ADMIT Orthopaedic Surgery; ATTEND Orthopaedic Surgery
PROC: 0SRD0JA Replacement of Left Knee Joint with Synthetic Substitute, Uncemented, Open Approach (ICD-10-PCS; principal; 2021-01-14 08:38)
DX: M17.12 Unilateral primary osteoarthritis, left knee (principal); I10 Essential (primary) hypertension; E11.9 Type 2 diabetes mellitus without complications
CPT/HCPCS: 36415; 73560-TC-LT-FY; 80048; 82962; 83540; 83550; 83735; 85027; 88305-TC; 88311-TC; 94760; 97010-GP; 97116-GP; 97162-GP; J1439

== ENCOUNTER 2022-06-02 10:50 | Emergency (ER) | payer OTHER ==
[2022-06-02 10:54] VITALS: BP 122/53; PULSE 94; RESP 18; TEMP 98.1; BMI 29.4
[2022-06-02] MEDS ORDERED: DIPHTH,PERTUSS(ACELL),TET 0.5 ML DISP.SYRIN IM ONE ×2 (12:02→12:57)
== END 2022-06-02 15:45 | disposition home or self-care (01) ==
LOC: JERFT 10:50
PROC: 3E0234Z Introduction of Serum, Toxoid and Vaccine into Muscle, Percutaneous Approach (ICD-10-PCS; principal; 2022-06-02)
DX: M25.512 Pain in left shoulder (principal); M25.522 Pain in left elbow; W10.9XXA Fall (on) (from) unspecified stairs and steps, initial encounter
CPT/HCPCS: 70450-TC; 72125-TC; 73030-TC-LT-FY; 73070-TC-LT-FY; 90471; 90715; 99285-25

== ENCOUNTER 2022-06-03 04:25 | Day surgery (SDC) | payer OTHER ==
[2022-06-02 08:47] VITALS: BMI 29.4
[~2022-06-03 04:25] MED LIST: ACETAMINOPHEN 325 MG TABLET (FP) PO PRN; CYCLOPENTOLATE HCL 1% OPHTH SOLN 2 ML BOTTLE OP SCH; KETOROLAC TROMETHAMINE 0.5% EYE DROP 1 DROP DROPS OP SCH; OFLOXACIN 0.3% OPHTHALMIC SOLUTION 5 ML BOTTLE OP SCH; PHENYLEPHRINE 2.5% OPHTH SOLN 15 ML BOTTLE OP SCH; TROPICAMIDE 1% OPHTH SOLN 15 ML BOTTLE OP SCH
[2022-06-03] MEDS ORDERED: BSS (NA/CA/MG/K) BALANCED SALT SOLUTION OPHTH SOLN 15 ML BOTTLE ONE (07:22)
[2022-06-03] MEDS ORDERED: TETRACAINE 0.5% OPHTH SOLN 2 ML BOTTLE ONE (07:22)
[2022-06-03] MEDS ORDERED: EPINEPHrine/PF 1 MG/1 ML (1:1,000) AMPULE ONE (07:22)
[2022-06-03] MEDS ORDERED: LIDOCAINE HCL/PF 1% SDV 5ML VIAL ONE (07:34)
[2022-06-03] MEDS ORDERED: KETOROLAC TROMETHAMINE 0.5% EYE DROP 1 DROP DROPS ONE (08:22)
[2022-06-03] MEDS ORDERED: CYCLOPENTOLATE HCL 1% OPHTH SOLN 2 ML BOTTLE ONE (08:22)
[2022-06-03] MEDS ORDERED: OFLOXACIN 0.3% OPHTHALMIC SOLUTION 5 ML BOTTLE ONE (08:23)
[2022-06-03] MEDS ORDERED: PHENYLEPHRINE 2.5% OPTHALMIC DROP BOTTLE ONE (08:23)
[2022-06-03] MEDS ORDERED: TROPICAMIDE 1% OPHTH SOLN 15 ML BOTTLE ONE (08:23)
[2022-06-03 08:34] VITALS: RESP 18
[2022-06-03] MEDS ORDERED: CYCLOPENTOLATE HCL 1% OPHTH SOLN 2 ML BOTTLE OD ONE ×3 (08:45→09:00)
[2022-06-03] MEDS ORDERED: PHENYLEPHRINE 2.5% OPHTH SOLN 15 ML BOTTLE OD ONE ×3 (08:45→09:00)
[2022-06-03] MEDS ORDERED: OFLOXACIN 0.3% OPHTHALMIC SOLUTION 5 ML BOTTLE OD ONE ×3 (08:45→09:00)
[2022-06-03] MEDS ORDERED: TROPICAMIDE 1% OPHTH SOLN 15 ML BOTTLE OD ONE ×3 (08:45→09:00)
[2022-06-03] MEDS ORDERED: KETOROLAC TROMETHAMINE 0.5% EYE DROP 1 DROP DROPS OD ONE ×3 (08:45→09:00)
[2022-06-03] MEDS ORDERED: TETRACAINE 0.5% OPHTH SOLN 2 ML BOTTLE OD ONE (10:00)
[2022-06-03] MEDS ORDERED: MIDAZOLAM HCL 2 MG/2 ML SINGLE DOSE VIAL ONE (10:00)
[2022-06-03] MEDS ORDERED: POVIDONE-IODINE 5% OPHTHALMIC PREP 30 ML SOLUTION OD ONE ×2 (10:04)
[2022-06-03] MEDS ORDERED: BSS (NA/CA/MG/K) BALANCED SALT SOLUTION OPHTH SOLN 15 ML BOTTLE IO ONE (10:10)
[2022-06-03] MEDS ORDERED: LIDOCAINE HCL 1% PRESERVATIVE FREE - 30ML VIAL IO ONE (10:12)
[2022-06-03] MEDS ORDERED: CHONDROITIN SU A/HYALUR SOD 1 KIT IO ONE (10:13)
[2022-06-03] MEDS ORDERED: EPINEPHrine/PF 1 MG/1 ML (1:1,000) AMPULE SQ ONE (10:19)
[2022-06-03] MEDS ORDERED: SODIUM CHLORIDE 0.9% P/F 10 ML VIAL IJ ONE (10:38)
[2022-06-03 13:37] VITALS: BP 140/60; PULSE 77; TEMP 98.8
== END 2022-06-03 12:00 | disposition home or self-care (01) ==
LOC: JASU-SURG 04:25
PROVIDERS: ATTEND Ophthalmology
PROC: 08RJ3JZ Replacement of Right Lens with Synthetic Substitute, Percutaneous Approach (ICD-10-PCS; principal; 2022-06-03 10:12)
DX: H26.9 Unspecified cataract (principal); E11.9 Type 2 diabetes mellitus without complications; I10 Essential (primary) hypertension
CPT/HCPCS: 82962

== ENCOUNTER 2022-07-08 05:04 | Day surgery (SDC) | payer OTHER ==
[2022-07-07 17:32] VITALS: BMI 29.4
[~2022-07-08 05:04] MED LIST changes: -CYCLOPENTOLATE HCL 1% OPHTH SOLN 2 ML BOTTLE OP SCH; -KETOROLAC TROMETHAMINE 0.5% EYE DROP 1 DROP DROPS OP SCH; -OFLOXACIN 0.3% OPHTHALMIC SOLUTION 5 ML BOTTLE OP SCH; -PHENYLEPHRINE 2.5% OPHTH SOLN 15 ML BOTTLE OP SCH
[2022-07-08] MEDS ORDERED: LIDOCAINE HCL/PF 1% SDV 5ML VIAL ONE (07:24)
[2022-07-08] MEDS ORDERED: POVIDONE-IODINE 5% OPHTHALMIC PREP 30 ML SOLUTION ONE (07:24)
[2022-07-08] MEDS ORDERED: TETRACAINE 0.5% OPHTH SOLN 2 ML BOTTLE ONE (07:24)
[2022-07-08] MEDS ORDERED: PHENYLEPHRINE/KETOROLAC 4 ML VIAL IO ONE ×2 (07:24→09:21)
[2022-07-08] MEDS ORDERED: KETOROLAC TROMETHAMINE 0.5% EYE DROP 1 DROP DROPS ONE (07:27)
[2022-07-08] MEDS ORDERED: CYCLOPENTOLATE HCL 1% OPHTH SOLN 2 ML BOTTLE ONE (07:28)
[2022-07-08] MEDS ORDERED: PHENYLEPHRINE 2.5% OPTHALMIC DROP BOTTLE ONE (07:28)
[2022-07-08] MEDS ORDERED: OFLOXACIN 0.3% OPHTHALMIC SOLUTION 5 ML BOTTLE ONE (07:28)
[2022-07-08] MEDS: OFLOXACIN 0.3% OPHTHALMIC SOLUTION 5 ML BOTTLE OP SCH ×3 (07:35→07:55)
[2022-07-08] MEDS: TROPICAMIDE 0.5% OPHTHALMIC SOLN 15 ML BOTTLE ONE ×3 (07:35→07:55)
[2022-07-08] MEDS: PHENYLEPHRINE 2.5% OPHTH SOLN 15 ML BOTTLE OP SCH ×3 (07:35→07:55)
[2022-07-08] MEDS: CYCLOPENTOLATE HCL 1% OPHTH SOLN 2 ML BOTTLE OP SCH ×3 (07:35→07:55)
[2022-07-08] MEDS: KETOROLAC TROMETHAMINE 0.5% EYE DROP 1 DROP DROPS OP SCH ×3 (07:35→07:55)
[2022-07-08] MEDS ORDERED: MIDAZOLAM HCL 2 MG/2 ML SINGLE DOSE VIAL ONE (09:05)
[2022-07-08] MEDS ORDERED: TETRACAINE 0.5% OPHTH SOLN 2 ML BOTTLE OS ONE (09:06)
[2022-07-08] MEDS ORDERED: POVIDONE-IODINE 5% OPHTHALMIC PREP 30 ML SOLUTION OS ONE (09:08)
[2022-07-08] MEDS ORDERED: BSS (NA/CA/MG/K) BALANCED SALT SOLUTION OPHTH SOLN 15 ML BOTTLE IO ONE (09:15)
[2022-07-08] MEDS ORDERED: LIDOCAINE HCL 1% PRESERVATIVE FREE - 30ML VIAL IO ONE (09:16)
[2022-07-08] MEDS ORDERED: CHONDROITIN SU A/HYALUR SOD 1 KIT IO ONE (09:17)
[2022-07-08] MEDS ORDERED: EPINEPHrine/PF 1 MG/1 ML (1:1,000) AMPULE SQ ONE (09:31)
[2022-07-08 09:57] VITALS: RESP 20
[2022-07-08 12:09] VITALS: BP 124/59; PULSE 89; TEMP 96.9
== END 2022-07-08 12:10 | disposition home or self-care (01) ==
LOC: JASU-SURG 05:04
PROVIDERS: ATTEND Ophthalmology
PROC: 08RK3JZ Replacement of Left Lens with Synthetic Substitute, Percutaneous Approach (ICD-10-PCS; principal; 2022-07-08 09:17)
DX: H26.9 Unspecified cataract (principal)
CPT/HCPCS: 82962; J1097